=== PATIENT | male | born 1970 | race African-American/Black ===

== ENCOUNTER 2016-10-24 14:28 | Inpatient (IN) | payer SELFPAY ==
--- NOTE | 2016-10-24 14:47 | ER Document Report ---
Addendum entered and electronically signed by TAWNY GARVEY NP 14:57: Doctor's Note Notes: 10/24/16 14:[address] Diego with his symptoms and his vital signs. He recommended CT abdomen pelvis no IV or oral contrast this was ordered. Original Note: ED Medical Screen (RME) - General Stated Complaint: STOMACH PAIN Time seen by provider: 14:44 Mode of Arrival: Wheelchair Information source: Patient Notes: 46-year-old male presents to ED for abdominal pain left and right straight across the middle of his abdomen for the last 2 days. He has had diarrhea since yesterday and was up and down to the stool all night. With some nausea no vomiting. Ate yesterday but today has not wanted to eat no appetite. States he is a smoker history of hypertension he is on medication but did not take it today. States he has some renal disease. I have greeted and performed a rapid initial assessment of this patient. A comprehensive ED assessment and evaluation of the patient, analysis of test results and completion of medical decision making process will be conducted by an additional ED providers. TRAVEL OUTSIDE OF THE [place] IN LAST 30 DAYS: No - Related Data Allergies/Adverse Reactions: bees Allergy (Uncoded 02/18/16 15:56) Past Medical History - Social History Family history: Reviewed & Not Pertinent - Past Medical History Cardiac Medical History: Reports: Hx Congestive Heart Failure, Hx Hypertension Endocrine Medical History: Denies: Hx Diabetes Mellitus Type 1, Hx Diabetes Mellitus Type 2 - Immunizations Hx Diphtheria, Pertussis, Tetanus Vaccination: Yes
[2016-10-24] MEDS ORDERED: NORMAL SALINE 1000 ML 1,000 ML IV ONE ×2 (15:20→16:10)
[2016-10-24 15:21] LABS: ABSOLUTE BASOPHILS # (AUTO) 0.1 10^3/uL (0.0-0.2); ABSOLUTE EOSINOPHILS # (AUTO) 0.1 10^3/uL (0.0-0.6); ABSOLUTE MONOCYTES (AUTO) 0.7 10^3/uL (0.1-1.4); ABSOLUTE NEUT (AUTO) 9.2 10^3/uL (1.7-8.2); BASOPHILS % (AUTO) 0.5 % (0-2); EOSINOPHILS % (AUTO) 0.6 % (0-6); HEMOGLOBIN 15.9 g/dL (13.5-17.0); HGB HCT DIFFERENCE -3.3; LYMPHOCYTES % (AUTO) 9.3 % (13-45); MEAN CORPUSCULAR HEMOGLOBIN 28.4 pg (27.0-33.4); MEAN CORPUSCULAR HGB CONC 31.2 g/dL (32.0-36.0); MEAN CORPUSCULAR VOLUME 91 fl (80-97); MONOCYTES % (AUTO) 6.4 % (3-13); RED BLOOD COUNT 5.61 10^6/uL (4.35-5.55); RED CELL DISTRIBUTION WIDTH 13.5 % (11.5-14.0); SEGMENTED NEUTROPHILS % (AUTO) 83.2 % (42-78); WHITE BLOOD COUNT 11.1 10^3/uL (4.0-10.5)
[2016-10-24] MEDS ORDERED: FAMOTIDINE INJ/PF 20 MG/2 ML SDV IV ONE (15:21)
[2016-10-24] MEDS ORDERED: ONDANSETRON HCL INJ/PF 4 MG/2 ML SDV IV ONE (15:21)
[2016-10-24 15:42] LABS: ALANINE AMINOTRANSFERASE 35 U/L (21-72); ALBUMIN 4.3 g/dL (3.5-5.0); ALKALINE PHOSPHATASE 60 U/L (38-126); ANION GAP 13 (5-19); ASPARTATE AMINO TRANSFERASE 30 U/L (17-59); BILIRUBIN,TOTAL 0.7 mg/dL (0.2-1.3); BLOOD UREA NITROGEN 16 mg/dL (7-20); CALCIUM 10.2 mg/dL (8.4-10.2); CARBON DIOXIDE 28 mmol/L (22-30); CHLORIDE 102 mmol/L (98-107); CREATININE RESULT 1.62 mg/dL (0.52-1.25); GLUCOSE 125 mg/dL (75-110); LIPASE 40.9 U/L (23-300); POTASSIUM 4.6 mmol/L (3.6-5.0); SODIUM 143.3 mmol/L (137-145); TOTAL PROTEIN 7.6 g/dL (6.3-8.2)
[2016-10-24] MEDS ORDERED: LORAZEPAM INJ 2 MG/1 ML VIAL IV ONE (16:52)
[2016-10-24 17:25] LABS: APPEARANCE,URINE CLEAR; BILIRUBIN,URINE NEGATIVE (NEGATIVE); GLUCOSE, URINE NEGATIVE (NEGATIVE); KETONES,URINE TRACE mg/dL (NEGATIVE); LEUKOCYTE ESTERASE,URINE NEGATIVE (NEGATIVE); NITRITE,URINE NEGATIVE (NEGATIVE); PROTEIN,URINE NEGATIVE (NEGATIVE); UROBILINOGEN,URINE NEGATIVE mg/dL (<2.0)
[2016-10-24 17:40] LABS: URINE BARBITURATES SCREEN NEGATIVE; URINE METHADONE SCREEN NEGATIVE; URINE PHENCYCLIDINE SCREEN NEGATIVE
[2016-10-24] MEDS ORDERED: HYDRALAZINE HCL INJ/PF 20 MG/1 ML SDV ONE (18:27)
[2016-10-24] MEDS: DEXTROSE 5%-LACTATED RINGERS 1,000 ML IV PRN (19:32)
[2016-10-24] MEDS: HYDROMORPHONE HCL INJ/PF 2 MG/ML AMPULE IV PRN ×2 (19:32→22:42)
--- NOTE | 2016-10-24 19:38 | HISTORY AND PHYSICAL E ---
History and Physical NAME: ANTHONY AMBRIZ : 1970 AGE: 46Y ADMITTED: 10/24/2016 ROOM: REASON FOR ADMISSION: Abdominal pain. HISTORY OF PRESENT ILLNESS: This 46-year-old male with history of cocaine abuse who just recently presented to the hospital with a 24-hour history of diffuse abdominal pain with diarrhea. There is no history of any nausea, vomiting, fever, or chills or previous episodes. The patient presented to the ER complaining of pain, a 10 out of 10 which is located primarily in the right side of the abdomen. The patient was in moderate distress, and on arrival his blood pressure was elevated at 234/123 with a heart rate of 90, respirations 23, temperature 98.6. On examination, the patient was noted to have diffuse tenderness but particularly on the right side of the abdomen with some guarding and tenderness without rebound. The patient's bowel sounds were present. The patient underwent a CT scan of the abdomen which revealed moderate amount of ascites with thick-walled loops of small bowel seen in the right lower quadrant raising the possibility of inflammatory bowel disease versus infectious enteritis versus ischemic bowel or additional considerations. Because of these findings, the patient is admitted to my service. PAST MEDICAL HISTORY: The patient has history of: 1. Congestive heart failure. 2. Hypertension. HOME MEDICATIONS: Include: 1. Cozaar. 2. Hydralazine. 3. Lasix. 4. Coreg. 5. Lipitor. 6. Ecotrin. 7. Norvasc. ALLERGIES: None. PAST SURGICAL HISTORY: None. REVIEW OF SYSTEMS: HEENT: The patient has no symptoms referable to the ear, nose and throat. RESPIRATORY: The patient has no symptoms referable to the respiratory system. CARDIOVASCULAR: History of congestive heart failure, shortness of breath, and palpitations. GASTROINTESTINAL: As in history of present illness. GENITOURINARY: The patient denies any symptoms. MUSCULOSKELETAL: The patient denies any symptoms. INTEGUMENTARY: The patient denies any symptoms. LYMPHATIC: The patient denies any symptoms. ENDOCRINE: The patient denies any symptoms. PSYCHIATRIC: The patient denies any symptoms. SOCIAL HISTORY: The patient smokes a pack of cigarettes every other day. The patient is a cocaine abuser and last used cocaine yesterday evening and denies alcohol abuse. 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 PHYSICAL EXAMINATION: GENERAL: Reveals a 46-year-old male who is obese, normally developed, who is in mild to moderate distress. VITAL SIGNS: Noted and stable: Blood pressure 234/123, heart rate 90, respirations 23. HEENT: There is no conjunctival pallor or scleral icterus. Mucous membranes are moist and pink. NECK: Supple without nodes, masses, thyroid, JVD, or bruits. Trachea is midline. LUNGS: Chest wall shows good excursions. Lungs are clear anteriorly with good entry. CARDIOVASCULAR: Pulse is regular without murmurs or gallops. ABDOMEN: Obese, soft with diffuse tenderness with moderate tenderness in the right side of the abdomen with some guarding. No rebound. Bowel sounds are hypoactive. EXTREMITIES: The extremities have full range of motion without edema or tenderness. DIAGNOSTIC DATA: CT scan was reviewed as noted above. Chemistries: The patient's laboratory reveals a BUN of 16, creatinine elevated at 1.62, but otherwise electrolytes within normal limits; glucose is 125. The patient's CBC reveals a normal white count 11.1, hemoglobin and hematocrit are 15.5 and 51% indicating some degree of hemoconcentration. Urine cocaine screen is posterior. IMPRESSION: Abdominal pain rule out possible enteritis versus inflammatory bowel disease versus ischemia. PLAN: We will admit the patient to Surgery to follow his abdominal findings. Internal Medicine consult/Hospitalist consultation is being requested for management of his hypertension and CHF. DICTATING PHYSICIAN: KERI CABRERA M.D. [id number] PHY#: [id number] ID: [id number] JOB#: [id number] ACCT: [id number] cc:EKRI CABRERA M.D. >
--- NOTE | 2016-10-24 19:59 | ER Document Report ---
ED General - General Chief Complaint: Abdominal Pain Stated Complaint: STOMACH PAIN Mode of Arrival: Wheelchair TRAVEL OUTSIDE OF THE [place] IN LAST 30 DAYS: No - HPI Patient complains to provider of: nausea vomiting diarrhea abdominal pain Notes: Patient is very well known to this hospital patient abuses cocaine. Patient has history of CHF and hypertension patient coming in today for diffuse dominant pain nausea vomiting diarrhea. Patient states multiple bouts of diarrhea states more slight water no blood nausea vomiting and diffuse abdominal pain. Patient denies any abdominal surgeries. Patient states he did use cocaine night prior to arrival. Upon evaluation patient is hypertensive and tachycardic. - Related Data Allergies/Adverse Reactions: bees Allergy (Uncoded 10/24/16 14:46) Home Medications: Current Home Medications Bisoprolol Fumarate/Hctz [Bisoprolol-Hctz 10-6.25 mg Tab] 1 tab PO DAILY [History] Furosemide [Lasix 20 mg Tablet] 20 mg PO QAM 10/24/16 [History] Past Medical History - General Information source: Patient - Social History Smoking Status: Current Every Day Smoker Chew tobacco use (# tins/day): No Frequency of alcohol use: None Drug Abuse: None Family History: Reviewed & Not Pertinent, Hypertension. denies: CAD Patient has suicidal ideation: No Patient has homicidal ideation: No - Past Medical History Cardiac Medical History: Reports: Hx Congestive Heart Failure, Hx Hypertension Endocrine Medical History: Denies: Hx Diabetes Mellitus Type 1, Hx Diabetes Mellitus Type 2 Renal/ Medical History: Denies: Hx Peritoneal Dialysis - Immunizations Hx Diphtheria, Pertussis, Tetanus Vaccination: Yes Review of Systems - Review of Systems Constitutional: No symptoms reported EENT: No symptoms reported Cardiovascular: No symptoms reported Respiratory: No symptoms reported Gastrointestinal: Abdominal pain, Diarrhea, Nausea, Vomiting Genitourinary: No symptoms reported Male Genitourinary: No symptoms reported Musculoskeletal: No symptoms reported Skin: No symptoms reported Hematologic/Lymphatic: No symptoms reported Neurological/Psychological: No symptoms reported -: Yes All other systems reviewed and negative Physical Exam - Vital signs Vitals: Temp Pulse Resp BP Pulse Ox 98.1 F 103 H 20 185/113 H 96 10/24/16 14:48 10/24/16 14:48 10/24/16 14:48 10/24/16 14:48 10/24/16 14:48 Interpretation: Normal - General General appearance: Appears well, Alert - HEENT Head: Normocephalic, Atraumatic Eyes: Normal Pupils: PERRL - Respiratory Respiratory status: No respiratory distress Chest status: Nontender Breath sounds: Normal Chest palpation: Normal - Cardiovascular Rhythm: Regular Heart sounds: Normal auscultation Murmur: No - Abdominal Inspection: Normal Distension: Distended Bowel sounds: Normal Tenderness: Tender - Diffuse, Guarding. No: Rebound Organomegaly: No organomegaly - Back Back: Normal, Nontender - Extremities General upper extremity: Normal inspection, Nontender, Normal color, Normal ROM , Normal temperature General lower extremity: Normal inspection, Nontender, Normal color, Normal ROM , Normal temperature, Normal weight bearing. No: Sera's sign - Neurological Neuro grossly intact: Yes Cognition: Normal Orientation: AAOx4 [place] Coma Scale Eye Opening: Spontaneous [place] Coma Scale Verbal: Oriented [place] Coma Scale Motor: Obeys Commands [place] Coma Scale Total: 15 Speech: Normal Motor strength normal: LUE, RUE, LLE, RLE Sensory: Normal - Psychological Associated symptoms: Normal affect, Normal mood - Skin Skin Temperature: Warm Skin Moisture: Dry Skin Color: Normal Course - Re-evaluation Re-evalutation: 10/24/16 22:35 CT scan showed multiple dilated loops of bowel consistent with possible inflammatory bowel infectious colitis or ischemic bowel. Lactic acid and CBC shows no elevation. More likely possibly viral gastroenteritis however patient still remains very diffusely tender therefore surgery was counseled at states that they will that the patient for observation. - Vital Signs Vital signs: Temp Pulse Resp BP Pulse Ox 98.6 F 105 H 17 195/96 H 98 10/24/16 21:40 10/24/16 21:40 10/24/16 21:40 10/24/16 21:40 10/24/16 21:40 - Laboratory Result Diagrams: 10/24/16 14:55 10/24/16 14:55 Laboratory results interpreted by me: 10/24/16 10/24/16 10/24/16 14:55 14:55 16:55 WBC 11.1 H RBC 5.61 H MCHC 31.2 L Seg Neutrophils % 83.2 H Lymphocytes % 9.3 L Absolute Neutrophils 9.2 H Creatinine 1.62 H Est GFR ( Amer) 56 L Est GFR (Non-Af Amer) 46 L Glucose 125 H Urine Ketones TRACE H Discharge - Discharge Clinical Impression: Cocaine abuse Abdominal pain Qualifiers: Abdominal location: generalized Qualified Code(s): R10.84 - Generalized abdominal pain Disposition: ADMITTED OBSERVATION Admitting Provider: Surgicalist Julisa obyer Unit Admitted: Surgical Floor
[2016-10-24] MEDS ORDERED: HYDROCORTISONE SOD SUCCINATE INJ/PF 100 MG/2 ML SDV IV SCH (22:00)
[2016-10-24] MEDS: FAMOTIDINE INJ/PF 20 MG/2 ML SDV IV SCH (22:42)
[2016-10-25] MEDS: HYDRALAZINE HCL INJ/PF 20 MG/1 ML SDV IV PRN ×2 (00:34→06:46)
[2016-10-25] MEDS: HYDROMORPHONE HCL INJ/PF 2 MG/ML AMPULE IV PRN ×4 (03:54→22:22)
[2016-10-25] MEDS: FAMOTIDINE INJ/PF 20 MG/2 ML SDV IV SCH ×2 (10:08→22:10)
[2016-10-25] MEDS: ENOXAPARIN SODIUM INJ 40 MG/0.4 ML DISP.SYRIN SUBCUT SCH (10:09)
[2016-10-25] MEDS: DEXTROSE 5%-LACTATED RINGERS 1,000 ML IV PRN ×2 (10:11→18:16)
--- NOTE | 2016-10-25 10:58 | EKG REPORT ---
SEVERITY:- ABNORMAL ECG - SINUS RHYTHM BIATRIAL ABNORMALITIES PROBABLE LVH WITH SECONDARY REPOL ABNRM BORDERLINE PROLONGED QT INTERVAL : Confirmed by: Angel Moura MD 25-Oct-2016 10:58:06
--- NOTE | 2016-10-25 13:29 | Brief Operative Note ---
BRIEF OPERATIVE REPORT DATE OF SURGERY: 10/25/16 TIME OF SURGERY: 12:00 PREOPERATIVE DIAGNOSIS: Cholelithisis with biliary colic POSTOPERATIVE DIAGNOSIS: Same with Chronic Cholecysttits SURGEON: KERI CABRERA 1ST BODY TRIMMER: Jill Spence FINDINGS: Cholelithiasis, Chronic Cholecystitis COMPLICATIONS: None ESTIMATED BLOOD LOSS: 10cc TISSUE REMOVED OR ALTERED: Gall Bladder and contents TECHNICAL PROCEDURE: See Operative report
[2016-10-25] MEDS ORDERED: METOPROLOL TARTRATE 50 MG TABLET PO ONE (15:56)
[2016-10-25] MEDS ORDERED: ENALAPRILAT DIHYDRATE INJ/PF 2.5 MG/2 ML SDV IV PRN (15:57)
--- NOTE | 2016-10-25 16:47 | PDOC CONSULTATION ---
Consultation Consult Date: 10/25/16 Attending physician:: KERI CABRERA Consult reason:: Assistance with management of hypertension and chronic systolic CHF History of Present Illness Admission Date/PCP: 10/24/16 18:30 [facility] Patient complains of: Nausea, vomiting, diarrhea and abdominal pain History of Present Illness: ANTHONY AMBRIZ is a 46 year old male who presented to [facility] with complaint of nausea, vomiting, diarrhea and right sided abdominal pain on 10/24/2016. He underwent a full workup that showed multiple dilated loops of bowel consistent with inflammatory bowel infectious colitis or ischemic colitis. His symptoms began over the 24 hrs prior to his arrival here and were worsening. He was admitted to the Surgialist service. He is well known to our service from previous admissions. He has a history of cocaine abuse, tobacco abuse, essential hypertension and mild chronic systolic congestive heart failure with an EF of 55%, moderate tricuspid regurgitation and LVH by last echo in 04/2017. He has been NPO since admission until an hour ago, when he was started on a clear liquid diet. He has not had any blood pressure medications since admission. The patient denies any nausea, vomiting, or diarrhea. He continues to have some moderated right upper quadrant abdominal tenderness. Past Medical History Cardiac Medical History: Reports: Congestive Heart Failure, Hypertension Pulmonary Medical History: Reports: None EENT Medical History: Reports: None Neurological Medical History: Reports: None Endocrine Medical History: Reports: None Denies: Diabetes Mellitus Type 1, Diabetes Mellitus Type 2 Renal/ Medical History: Reports: None Malignancy Medical History: Reports: None GI Medical History: Reports: None Musculoskeltal Medical History: Reports: None Skin Medical History: Reports: None Psychiatric Medical History: Reports: Depression, Substance Abuse, Tobacco Dependency Traumatic Medical History: Reports: None Hematology: Reports: None Infectious Medical History: Reports: None Past Surgical History Past Surgical History: Reports: None Social History Information Source: Patient Lives with: Spouse/Significant other Smoking Status: Current Every Day Smoker Cigarettes Packs Per Day: 1 Cigars Per Day: 0 Number of Years Smokin Last Time Smoked: Prior to admission Frequency of Alcohol Use: Social Hx Recreational Drug Use: Yes Drugs: Cocaine, Marijuana Hx Prescription Drug Abuse: No - Advance Directive Resuscitation Status: Full Code Surrogate healthcare decision maker:: He states it would be his mother Family History Family History: Hypertension. denies: CAD Parental Family History Reviewed: Yes Children Family History Reviewed: Yes Sibling(s) Family History Reviewed.: Yes Medication/Allergy Home Medications: Bisoprolol Fumarate/Hctz [Bisoprolol-Hctz 10-6.25 mg Tab] 1 tab PO DAILY Furosemide [Lasix 20 mg Tablet] 20 mg PO QAM 10/24/16 Allergies/Adverse Reactions: bees Allergy (Uncoded 10/24/16 14:46) Review of Systems Constitutional: ABSENT: chills, fever(s), headache(s), weight gain, weight loss Eyes: ABSENT: visual disturbances Ears: PRESENT: as per HPI Cardiovascular: ABSENT: chest pain, dyspnea on exertion, edema, orthropnea, palpitations Gastrointestinal: PRESENT: abdominal pain, diarrhea, nausea, vomiting. ABSENT: constipation, hematemesis, hematochezia Genitourinary: ABSENT: dysuria, hematuria Musculoskeletal: ABSENT: joint swelling Integumentary: ABSENT: rash, wounds Neurological: ABSENT: abnormal gait, abnormal speech, confusion, dizziness, focal weakness, syncope Psychiatric: ABSENT: anxiety, depression, homidical ideation, suicidal ideation Endocrine: ABSENT: cold intolerance, heat intolerance, polydipsia, polyuria Hematologic/Lymphatic: PRESENT: as per HPI Physical Exam Vital Signs: Temp Pulse Resp BP Pulse Ox 98.3 F 88 20 174/92 H 97 10/25/16 12:00 10/25/16 14:00 10/25/16 12:00 10/25/16 12:00 10/25/16 12:00 Intake & Output 10/24/16 10/25/16 10/26/16 06:59 06:59 06:59 Intake Total 486 Output Total 0 Balance 486 Weight 112.8 kg General appearance: PRESENT: no acute distress, obese, well-developed, well- nourished Head exam: PRESENT: atraumatic, normocephalic Eye exam: PRESENT: conjunctiva pink, EOMI, PERRLA. ABSENT: scleral icterus Ear exam: PRESENT: normal external ear exam Mouth exam: PRESENT: moist, tongue midline Neck exam: ABSENT: carotid bruit, JVD, lymphadenopathy, thyromegaly Respiratory exam: PRESENT: clear to auscultation sandra. ABSENT: rales, rhonchi, wheezes Cardiovascular exam: PRESENT: RRR. ABSENT: diastolic murmur, rubs, systolic murmur Pulses: PRESENT: normal dorsalis pedis pul GI/Abdominal exam: PRESENT: distended, normal bowel sounds, soft, tenderness - right lower quandrant, negative peroneal signs. ABSENT: guarding, mass, organolmegaly, rebound Rectal exam: PRESENT: deferred Extremities exam: PRESENT: full ROM. ABSENT: calf tenderness, clubbing, pedal edema Musculoskeletal exam: PRESENT: ambulatory Neurological exam: PRESENT: alert, awake, oriented to person, oriented to place , oriented to time, oriented to situation, CN II-XII grossly intact. ABSENT: motor sensory deficit Psychiatric exam: PRESENT: appropriate affect, normal mood. ABSENT: homicidal ideation, suicidal ideation Skin exam: PRESENT: dry, intact, warm. ABSENT: cyanosis, rash Results Impressions: Chest X-Ray 10/24/16 14:49 IMPRESSION: Nothing acute. Borderline heart size again seen. Abdomen/Pelvis CT 10/24/16 14:56 IMPRESSION: Moderate amount of ascites with thick walled loops of small bowel in the right lower quadrant. Differential includes inflammatory bowel disease, infectious enteritis and ischemic bowel. Assessment & Plan - Diagnosis (1) Abdominal pain Qualifiers: Abdominal location: right lower quadrant Qualified Code(s): R10.31 - Right lower quadrant pain Is this a current diagnosis for this admission?: YesPlan: Management per surgery (2) Accelerated hypertension Is this a current diagnosis for this admission?: YesPlan: Patient was given metoprolol 50 mg po now. PRN Vasotec. He has been noncompliant with medical management in the past because of lack of insurance. He states he is not taking the medications on his medication reconciliation list (3) Chronic congestive heart failure with left ventricular diastolic dysfunction Is this a current diagnosis for this admission?: YesPlan: Patient appears presently euvolemic. Will continue to monitor. Last echo in 2015 showed almost normal EF of 55%, no diastolic dysfunction, moderate tricuspid regurgitation and LVH. He admits noncompliance to his medications and dietary restrictions, as well as occassional use of cocaine. (4) Cocaine abuse Is this a current diagnosis for this admission?: YesPlan: Counseled (5) Tobacco abuse Is this a current diagnosis for this admission?: YesPlan: Patient was counseled - Time Time Spent: 50 to 70 Minutes Critical Time spent with patient: 25-34 minutes Medications reviewed and adjusted accordingly: Yes Anticipated discharge: Home
--- NOTE | 2016-10-25 21:58 | PROGRESS NOTE E ---
Progress Note NAME: ANTHONY AMBRIZ : 1970 AGE: 46Y DATE: 10/25/2016 ROOM: 425 SUBJECTIVE: The patient is feeling better, has less abdominal cramping. He has had 2 diarrhea. OBJECTIVE: VITAL SIGNS: Blood pressure 150/94, temperature 98.3, pulse 62, respirations 20, saturation is 97% on room air. ABDOMEN: The patient's abdomen is soft, minimally tender in the right lower quadrant with good bowel sounds. There is no guarding or rebound. His bowel function is improving with less diarrhea. ASSESSMENT: Resolving gastroenteritis. PLAN: We will advance the patient's diet to regular in the morning and we will anticipate discharge planning at that time. DICTATING PHYSICIAN: KERI CABRERA M.D. [id number] PHY#: [id number] ID: [id number] JOB#: [id number] ACCT: [id number] cc: >
[2016-10-25] MEDS: METOPROLOL TARTRATE 25 MG TABLET PO SCH (22:10)
[2016-10-26] MEDS: HYDROMORPHONE HCL INJ/PF 2 MG/ML AMPULE IV PRN ×2 (02:49→10:43)
[2016-10-26] MEDS: DEXTROSE 5%-LACTATED RINGERS 1,000 ML IV PRN ×2 (02:57→12:19)
[2016-10-26] MEDS ORDERED: LORAZEPAM INJ 2 MG/1 ML VIAL ONE (04:16)
[2016-10-26] MEDS: HYDRALAZINE HCL INJ/PF 20 MG/1 ML SDV IV PRN (06:53)
[2016-10-26] MEDS: ENOXAPARIN SODIUM INJ 40 MG/0.4 ML DISP.SYRIN SUBCUT SCH (08:00)
[2016-10-26] MEDS: METOPROLOL TARTRATE 25 MG TABLET PO SCH (09:05)
[2016-10-26] MEDS: FAMOTIDINE INJ/PF 20 MG/2 ML SDV IV SCH (09:05)
[2016-10-26] MEDS ORDERED: LISINOPRIL 10 MG TABLET PO SCH (10:00)
--- NOTE | 2016-10-26 11:36 | PDOC PROGRESS REPORT ---
Subjective Progress Note for:: 10/26/16 Subjective:: Patient seen on morning rounds. He is resting comfortably in bed with his girlfriend. He denies any nausea or abdominal pain overnight. He states he did have 2 episodes of diarrhea. He is tolerating clear liquid diet without abdominal pain, and is hungry. His blood pressure is improved overnight but still hypertensive. He denies any chest pain, palpitations or shortness of breath. He denies any other complaints. Physical Exam Vital Signs: Temp Pulse Resp BP Pulse Ox 97.9 F 75 18 148/80 H 98 10/26/16 07:40 10/26/16 07:40 10/26/16 07:40 10/26/16 07:40 10/26/16 07:40 Intake & Output 10/25/16 10/26/16 10/27/16 06:59 06:59 06:59 Intake Total 486 4523 Output Total 0 5 Balance 486 4518 Weight 112.8 kg 112.8 kg General appearance: PRESENT: no acute distress, obese, well-developed, well- nourished Head exam: PRESENT: atraumatic, normocephalic Eye exam: PRESENT: conjunctiva pink, EOMI, PERRLA. ABSENT: scleral icterus Ear exam: PRESENT: normal external ear exam Mouth exam: PRESENT: moist, tongue midline Neck exam: ABSENT: carotid bruit, JVD, lymphadenopathy, thyromegaly Respiratory exam: PRESENT: clear to auscultation sandra. ABSENT: rales, rhonchi, wheezes Cardiovascular exam: PRESENT: RRR. ABSENT: diastolic murmur, rubs, systolic murmur Pulses: PRESENT: normal dorsalis pedis pul Vascular exam: PRESENT: normal capillary refill GI/Abdominal exam: PRESENT: hyperactive bowel sounds, soft Rectal exam: PRESENT: deferred Extremities exam: PRESENT: full ROM. ABSENT: calf tenderness, clubbing, pedal edema Neurological exam: PRESENT: alert, awake, oriented to person, oriented to place , oriented to time, oriented to situation, CN II-XII grossly intact. ABSENT: motor sensory deficit Psychiatric exam: PRESENT: appropriate affect, normal mood. ABSENT: homicidal ideation, suicidal ideation Skin exam: PRESENT: dry, intact, warm. ABSENT: cyanosis, rash Results Laboratory Results: 10/25/16 04:00 Nasophary (Mrsa Only) MRSA Surveillance Culture - Final NO MRSA RECOVERED Impressions: Chest X-Ray 10/24/16 14:49 IMPRESSION: Nothing acute. Borderline heart size again seen. Abdomen/Pelvis CT 10/24/16 14:56 IMPRESSION: Moderate amount of ascites with thick walled loops of small bowel in the right lower quadrant. Differential includes inflammatory bowel disease, infectious enteritis and ischemic bowel. Assessment & Plan - Diagnosis (1) Abdominal pain Qualifiers: Abdominal location: right lower quadrant Qualified Code(s): R10.31 - Right lower quadrant pain Is this a current diagnosis for this admission?: YesPlan: Management per surgery (2) Accelerated hypertension Is this a current diagnosis for this admission?: YesPlan: Patient was given metoprolol 50 mg po now. PRN Vasotec. He has been noncompliant with medical management in the past because of lack of insurance. He states he is not taking the medications on his medication reconciliation list (3) Chronic congestive heart failure with left ventricular diastolic dysfunction Is this a current diagnosis for this admission?: YesPlan: Patient appears presently euvolemic. Will continue to monitor. Last echo in 2015 showed almost normal EF of 55%, no diastolic dysfunction, moderate tricuspid regurgitation and LVH. He admits noncompliance to his medications and dietary restrictions, as well as occassional use of cocaine. (4) Cocaine abuse Is this a current diagnosis for this admission?: YesPlan: Counseled (5) Tobacco abuse Is this a current diagnosis for this admission?: YesPlan: Patient was counseled - Time Time Spent with patient: 25-34 minutes Medications reviewed and adjusted accordingly: Yes Anticipated discharge: Home
[2016-10-26 14:58] VITALS: BP 165/89
--- NOTE | 2016-10-26 20:13 | DISCHARGE SUMMARY E ---
Discharge Summary NAME: ANTHONY AMBRIZ : 1970 AGE: 46Y ADMITTED: 10/24/2016 DISCHARGED: 10/26/2016 DISCHARGE DIAGNOSIS: Resolved acute enteritis. HISTORY OF PRESENT ILLNESS: This 46-year-old male with history of hypertension, congestive heart failure, and cocaine abuse presented to the emergency room with abdominal pain. The patient was noted on CT scan to have thickening of the small bowel in the right lower quadrant suggestive of either enteritis versus ischemic changes versus inflammatory bowel disease. HOSPITAL COURSE: The patient was admitted to the hospital, and on examination initially he was noted to have some right lower quadrant tenderness with minimal guarding but no rebound. The patient had history of diarrhea as well. The patient was admitted to the hospital and kept NPO on IV fluids and was given antibiotics. The patient continued to improve in the hospital, and he was started on clear-liquid diet on the first hospital day and advanced to a regular diet on the second hospital day. PHYSICAL EXAMINATION: VITAL SIGNS: The patient now is afebrile, vital signs are stable. ABDOMEN: The abdomen is soft. Bowel sounds are present. There is minimal tenderness, and the patient complains of only some burning discomfort. DISCHARGE INSTRUCTIONS: The patient is now discharged home on liquid diet only if he has recurrent pain or diarrhea, but he has been advised to advance his diet as tolerated. DICTATING PHYSICIAN: KERI CABRERA M.D. [id number] PHY#: [id number] ID: [id number] JOB#: [id number] ACCT: [id number] cc:Paddy ALEJANDRO PA >
== END 2016-10-26 15:26 | disposition home or self-care (01) | DRG 392 ==
LOC: ER 14:28 → OBSVTOIN 18:30 → EH 18:30 → UNDOADMOB 20:12 → 4S 21:30
PROVIDERS: ADMIT Surgery; ATTEND Surgery
DX: K52.9 Noninfective gastroenteritis and colitis, unspecified (principal); I50.22 Chronic systolic (congestive) heart failure; I11.0 Hypertensive heart disease with heart failure; F32.9 Major depressive disorder, single episode, unspecified; F14.10 Cocaine abuse, uncomplicated; F17.210 Nicotine dependence, cigarettes, uncomplicated; Z91.030 Bee allergy status; Z79.899 Other long term (current) drug therapy; Z91.14 Patient's other noncompliance with medication regimen; Z82.49 Family history of ischemic heart disease and other diseases of the circulatory system
CPT/HCPCS: 36415; 71020; 74176; 80053; 80307; 81001; 83605; 83690; 85025; 93005; 93010; 96361; 96365; 96366; 96375; 99285; J0360; J1170; J1650; J2060; J2405; J3490; J7030; S0028

== ENCOUNTER 2017-03-30 15:36 | Emergency (ER) | payer SELFPAY ==
[2017-03-30 18:47] LABS: APPEARANCE,URINE CLEAR; BILIRUBIN,URINE NEGATIVE (NEGATIVE); GLUCOSE, URINE 50 mg/dL (NEGATIVE); KETONES,URINE NEGATIVE (NEGATIVE); LEUKOCYTE ESTERASE,URINE NEGATIVE (NEGATIVE); NITRITE,URINE NEGATIVE (NEGATIVE); PROTEIN,URINE NEGATIVE (NEGATIVE); UROBILINOGEN,URINE NEGATIVE mg/dL (<2.0)
[2017-03-30] MEDS ORDERED: CEFTRIAXONE INJ 250 MG VIAL IM ONE (18:56)
[2017-03-30] MEDS ORDERED: LIDOCAINE 1% INJ-PF (10 MG/ML) 30 ML SDV INJ ONE (18:56)
[2017-03-30] MEDS ORDERED: AZITHROMYCIN 1 GM SUSP PACKET PO ONE (18:56)
--- NOTE | 2017-03-30 19:01 | ER Document Report ---
HPI - HPI Patient complains to provider of: pyuria Onset: Other - 3 days Quality of pain: Burning Pain Level: 2 Context: has been sexually active with a partner without protection Exacerbated by: Denies Relieved by: Denies Similar symptoms previously: No Recently seen / treated by doctor: No - CARDIOVASCULAR Cardiovascular: DENIES: Chest pain - DERM Skin Color: Normal Past Medical History - Social History Smoking Status: Current Every Day Smoker Chew tobacco use (# tins/day): No Frequency of alcohol use: None Drug Abuse: None Family History: Hypertension. denies: CAD Patient has suicidal ideation: No Patient has homicidal ideation: No - Past Medical History Cardiac Medical History: Reports: Hx Congestive Heart Failure, Hx Hypertension Endocrine Medical History: Denies: Hx Diabetes Mellitus Type 1, Hx Diabetes Mellitus Type 2 Renal/ Medical History: Denies: Hx Peritoneal Dialysis Psychiatric Medical History: Reports: Hx Depression - Immunizations Hx Diphtheria, Pertussis, Tetanus Vaccination: Yes Vertical Provider Document - CONSTITUTIONAL Agree With Documented VS: Yes Exam Limitations: No Limitations General Appearance: WD/WN, No Apparent Distress - INFECTION CONTROL TRAVEL OUTSIDE OF THE [place] IN LAST 30 DAYS: No - RESPIRATORY O2 Sat by Pulse Oximetry: 98 - REPRODUCTIVE Male Genitalia: Normal Inspection Notes: Testicles nontender to palpation, equal in size without evidence of swelling. Inguinal hernia noted bilaterally. Cremasteric reflex intact bilaterally. No evidence of discharge or drainage from the glans. - MUSCULOSKELETAL/EXTREMETIES Musculoskeletal/Extremeties: MAEW, FROM, Non-Tender, No Edema - NEURO Level of Consciousness: Awake, Alert, Appropriate Motor/Sensory: No Motor Deficit, No Sensory Deficit - DERM Integumentary: Warm, Dry, No Rash Course - Re-evaluation Re-evalutation: 03/30/17 23:09 Patient is a 46-year-old male who is hemodynamically stable, no acute distress afebrile. Patient requesting treatment for coverage of chlamydia and gonorrhea. No evidence of trichomonas or urinary tract infection. Patient developed came back without any evidence of detection for Chlamydia gonorrhea. Patient is to follow-up with primary care. - Vital Signs Vital signs: Temp Pulse Resp BP Pulse Ox 98.0 F 79 20 207/105 H 98 03/30/17 16:01 03/30/17 16:01 03/30/17 16:01 03/30/17 16:01 03/30/17 16:01 - Laboratory Laboratory results interpreted by me: 03/30/17 18:11 Urine Glucose (UA) 50 H Urine Ascorbic Acid 40 H Discharge - Discharge Clinical Impression: Concern about STD in male without diagnosis Condition: Good Disposition: HOME, SELF-CARE Additional Instructions: At time of discharge there is no evidence of any STD, urinary tract infection. I will call you if your chlamydia/gonorrhea screen comes back positive. If you do not receive a call from me and it is negative. No news is good news. Please follow-up with the health department or your primary care physician as needed for any additional testing. Forms: Elevated Blood Pressure Referrals: [facility] [Provider Group] - Follow up as needed [facility] [NO LOCAL MD] - Follow up as needed
[2017-03-30 19:46] VITALS: BP 208/117
[2017-03-30 19:46] LABS: CHLAM PCR NOT DETECTED (NOT DETECT)
== END 2017-03-30 19:46 | disposition home or self-care (01) ==
LOC: ER 15:36
DX: Z20.2 Contact with and (suspected) exposure to infections with a predominantly sexual mode of transmission (principal); K40.20 Bilateral inguinal hernia, without obstruction or gangrene, not specified as recurrent; F17.200 Nicotine dependence, unspecified, uncomplicated
CPT/HCPCS: 99283; 96372; 36415; 87210; 86592; 81001; 87491; 87591; J3490; Q0144; J0696

== ENCOUNTER 2017-04-29 18:00 | Emergency (ER) | payer SELFPAY ==
[2017-04-29 18:15] VITALS: BP 213/109
[2017-04-29] MEDS ORDERED: CEFTRIAXONE INJ 1000 MG VIAL IM ONE (19:36)
[2017-04-29] MEDS ORDERED: LIDOCAINE 1% INJ-PF (10 MG/ML) 30 ML SDV INJ ONE (19:36)
[2017-04-29] MEDS ORDERED: AZITHROMYCIN 250 MG TABLET PO ONE (19:37)
--- NOTE | 2017-04-29 19:39 | ER Document Report ---
HPI - HPI Pain Level: 3 Notes: Patient is a 46-year-old male who presents the ED complaining of burning with urination 2 days. Patient states that he has been sexually active with a female partner, but states that he has been using protection generally. He is not sure if his female partner has any symptoms. Patient denies any urethral discharge or testicular pain. He has not noticed any bumps in his groin. He is still eating and drinking without any difficulties. Denies any headaches, fever, changes in vision, redness in eyes, URI, sore throat, chest pain, palpitations, syncope, cough, wheeze, shortness of breath, abdominal pain, nausea/vomiting/diarrhea, urinary retention, joint pains, or rash. Denies any drug allergies, medications. Patient states he does have a history of hypertension. He does not have a PCM at this time. - ROS Notes: REVIEW OF SYSTEMS: CONSTITUTIONAL : Denies fever, chills, or sweats. Denies recent illness. EENT: Denies eye, ear, throat, or mouth pain or symptoms. Denies nasal or sinus congestion or discharge. Denies throat, tongue, or mouth swelling or difficulty swallowing. CARDIOVASCULAR: Denies chest pain. Denies palpitations or racing or irregular heart beat. Denies ankle edema. RESPIRATORY: Denies cough, cold, or chest congestion. Denies shortness of breath, difficulty breathing, or wheezing. GASTROINTESTINAL: Denies abdominal pain or distention. Denies nausea, vomiting , or diarrhea. Denies blood in vomitus, stools, or per rectum. Denies black, tarry stools. Denies constipation. GENITOURINARY: see hpi MUSCULOSKELETAL: Denies back or neck pain or stiffness. Denies joint pain or swelling. SKIN: Denies rash, lesions or sores. NEUROLOGICAL: Denies confusion or altered mental status. Denies passing out or loss of consciousness. Denies dizziness or lightheadedness. Denies headache. Denies weakness or paralysis or loss of use of either side. Denies problems with gait or speech. Denies sensory loss, numbness, or tingling. ALL OTHER SYSTEMS REVIEWED AND NEGATIVE. Dictation was performed using [employer] voice recognition software - CARDIOVASCULAR Cardiovascular: DENIES: Chest pain - DERM Skin Color: Normal Past Medical History - Social History Smoking Status: Current Every Day Smoker Chew tobacco use (# tins/day): No Frequency of alcohol use: Occasional Drug Abuse: None Family History: Hypertension. denies: CAD - Past Medical History Cardiac Medical History: Reports: Hx Congestive Heart Failure, Hx Hypertension Endocrine Medical History: Denies: Hx Diabetes Mellitus Type 1, Hx Diabetes Mellitus Type 2 Renal/ Medical History: Denies: Hx Peritoneal Dialysis Psychiatric Medical History: Reports: Hx Depression Surgical Hx: Negative - Immunizations Hx Diphtheria, Pertussis, Tetanus Vaccination: Yes Vertical Provider Document - CONSTITUTIONAL Agree With Documented VS: Yes Notes: PHYSICAL EXAMINATION: GENERAL: Well-appearing, well-nourished and in no acute distress. HEAD: Atraumatic, normocephalic. EYES: Pupils equal round and reactive to light, extraocular movements intact, sclera anicteric, conjunctiva are normal. ENT: oropharynx clear without exudates. No tonsilar hypertrophy or erythema. NECK: Normal range of motion, supple without lymphadenopathy LUNGS: Breath sounds clear to auscultation bilaterally and equal. No wheezes rales or rhonchi. HEART: Regular rate and rhythm without murmurs, rubs, gallops. ABDOMEN: Soft, nontender, nondistended abdomen. No guarding, no rebound. No masses appreciated. Normal bowel sounds present. No CVA tenderness bilaterally. : + circumcised. No ulcerations, rash, lesions, discharge noted. No lymphadenopathy. No scrotal swelling. No testicular tenderness or epididymal tenderness. Musculoskeletal: FROM to passive/active. Strength 5+/5. Extremities: No cyanosis, clubbing, or edema b/l. Peripheral pulses 2+. Capillary refill less than 3 seconds. PSYCH: Normal mood, normal affect. SKIN: Warm, Dry, normal turgor, no rashes or lesions noted. - INFECTION CONTROL TRAVEL OUTSIDE OF THE [place] IN LAST 30 DAYS: No - RESPIRATORY O2 Sat by Pulse Oximetry: 98 Course - Re-evaluation Re-evalutation: 04/29/17 20:30 Patient is an afebrile, well-hydrated, 46-year-old male who presents the ED with dysuria. Vitals are stable. PE otherwise unremarkable. Patient's blood pressure is running as average. Stressed to the patient that he needs to get established with a PCM to get his blood pressure under control due to the risks of heart attack and stroke. Urinalysis was unremarkable. Chlamydia, gonorrhea urine is still pending and he will be notified if positive by hospital staff. Rocephin 250 mg given IM today along with 1 g of Zithromax. Safe sexual practices reviewed. Advised patient to go to the health department to get further STD testing. Recheck/establish with PCM this week. Return to the ED with any worsening/concerning symptoms otherwise as reviewed in discharge. Patient is in agreement. - Vital Signs Vital signs: Temp Pulse Resp BP Pulse Ox 98.1 F 83 24 H 213/109 H 98 04/29/17 18:12 04/29/17 18:12 04/29/17 18:12 04/29/17 18:12 04/29/17 18:12 Discharge - Discharge Clinical Impression: Dysuria Condition: Stable Disposition: HOME, SELF-CARE Additional Instructions: Push fluids (i.e. water, cranberry juice) Proper hygenic technique Keep the skin clean Safe sexual practices with condoms every time Tylenol/ibuprofen as needed May use over the counter AZO for burning with urination Check in with the health department this week for further testing* Your chlamydia/Da test are pending and you will be notified if positive results ; you may call in 2 days for the results as well You have been given follow up instructions including low cost follow up with one of the local primary care offices. Follow up with them tomorrow for further care and reevaluation. Return immediately if symptoms worsen F/u-establish with your PCM in 2-3 days for a recheck and elevated blood pressure Consider consult with a Urologist for ongoing/worsening symptoms. Return to the ED with any development of LANDA/fever, trouble with vision, eye redness, worsening pain, urethral discharge, urinary retention, blood in the urine, flank pain, abdominal pain, n/v, Chest Pain, shortness of breath, joint pains, or trouble breathing. Forms: Smoking Cessation Education, Elevated Blood Pressure [facility]AL [facility] - Follow up tomorrow [facility] [Provider Group] - Follow up as needed [facility] [Provider Group] - Follow up as needed [facility] [Provider Group] - Follow up as needed
[2017-04-29 20:21] LABS: APPEARANCE,URINE CLEAR; BILIRUBIN,URINE NEGATIVE (NEGATIVE); GLUCOSE, URINE 50 mg/dL (NEGATIVE); KETONES,URINE NEGATIVE (NEGATIVE); LEUKOCYTE ESTERASE,URINE NEGATIVE (NEGATIVE); NITRITE,URINE NEGATIVE (NEGATIVE); PROTEIN,URINE NEGATIVE (NEGATIVE); URINE SPECIFIC GRAVITY 1.028
[2017-04-29 21:53] LABS: CHLAM PCR NOT DETECTED (NOT DETECT)
== END 2017-04-29 21:00 | disposition home or self-care (01) ==
LOC: ER 18:00
DX: R30.0 Dysuria (principal); I10 Essential (primary) hypertension; F17.200 Nicotine dependence, unspecified, uncomplicated
CPT/HCPCS: 99283; 96372; 81001; 87491; 87591; J3490; J0696

== ENCOUNTER 2017-05-27 12:08 | Emergency (ER) | payer SELFPAY ==
[2017-05-27 12:22] VITALS: BP 209/117
--- NOTE | 2017-05-27 15:11 | ER Document Report ---
HPI - HPI Patient complains to provider of: std check Pain Level: Denies Context: 46-year-old male presents to ED for possible STD exposure. He is requesting treatment but does not better want to be treated for his blood pressure anything else. He states that he was treated about a couple weeks ago for STDs but his girlfriend came home and his girlfriend is having symptoms so he wants her tested and then him treated for what ever she gets treated for. They are having unprotected sex. Associated Symptoms: None Exacerbated by: Denies Relieved by: Denies Similar symptoms previously: Yes Recently seen / treated by doctor: Yes - ROS ROS below otherwise negative: Yes - CONSTITUTIONAL Constitutional: DENIES: Fever, Chills - EENT EENT: DENIES: Sore Throat, Ear Pain, Nasal Drainage-Clear, Nasal Drainage- Purulent, Congestion, Eye problems - NEURO Neurology: DENIES: Headache, Weakness, Vision blurred, Dizzinesss / Vertigo - CARDIOVASCULAR Cardiovascular: DENIES: Chest pain - RESPIRATORY Respiratory: DENIES: Trouble Breathing, Coughing - GASTROINTESTINAL Gastrointestinal: DENIES: Abdominal Pain, Nausea, Patient vomiting, Diarrhea, Constipation, Black / Bloody Stools - URINARY Urinary: DENIES: Dysuria, Urgency, Frequency - REPRODUCTIVE Reproductive: DENIES: :, Postmenopausal, Abnormal bleeding / discharge - MUSCULOSKELETAL Musculoskeletal: DENIES: Extremity pain, Back Pain, Neck Pain, Swelling - DERM Skin Color: Normal Skin Problems: None Past Medical History - General Information source: Patient - Social History Smoking Status: Current Every Day Smoker Cigarette use (# per day): Yes Chew tobacco use (# tins/day): No Smoking Education Provided: Yes - Less than 2 minutes Frequency of alcohol use: None Drug Abuse: None Occupation: Moving and storage Lives with: Spouse/Significant other Family History: DM, Hypertension, Malignancy Patient has suicidal ideation: No Patient has homicidal ideation: No - Past Medical History Cardiac Medical History: Reports: Hx Congestive Heart Failure, Hx Hypertension Pulmonary Medical History: Reports: None EENT Medical History: Reports: None Neurological Medical History: Reports: None Endocrine Medical History: Reports: None Renal/ Medical History: Reports: None Malignancy Medical History: Reports None GI Medical History: Reports: None Musculoskeltal Medical History: Reports None Skin Medical History: Reports None Psychiatric Medical History: Reports: Hx Depression Traumatic Medical History: Reports: None Infectious Medical History: Reports: None Surgical Hx: Negative Past Surgical History: Reports: None - Immunizations Hx Diphtheria, Pertussis, Tetanus Vaccination: Yes Vertical Provider Document - CONSTITUTIONAL Agree With Documented VS: Yes - Blood pressure elevated at 209/117 the patient refused any treatment states Exam Limitations: No Limitations - INFECTION CONTROL TRAVEL OUTSIDE OF THE [place] IN LAST 30 DAYS: No - HEENT HEENT: Atraumatic, Normocephalic, PERRLA - NECK Neck: Normal Inspection, Supple - RESPIRATORY Respiratory: Breath Sounds Normal, No Respiratory Distress O2 Sat by Pulse Oximetry: 98 - CARDIOVASCULAR Cardiovascular: Regular Rate, Regular Rhythm - GI/ABDOMEN Gastrointestinal: Abdomen Soft, Abdomen Non-Tender - MUSCULOSKELETAL/EXTREMETIES Musculoskeletal/Extremeties: MAEW, FROM, Non-Tender - NEURO Level of Consciousness: Awake, Alert, Appropriate - DERM Integumentary: Warm, Dry, No Rash Course - Re-evaluation Re-evalutation: 05/27/17 22:04 Patient states he was only here for STD treatment if his significant other was positive. He states he did not want any treatments for anything else. He states he has medications for anything else he needs at home and he can follow- up with his primary doctor. His significant other's STD test were negative. Patient was discharged home to follow-up with his primary doctor. - Vital Signs Vital signs: Temp Pulse Resp BP Pulse Ox 98.5 F 73 16 209/117 H 98 05/27/17 12:14 05/27/17 12:14 05/27/17 12:14 05/27/17 12:14 05/27/17 12:14 Discharge - Discharge Clinical Impression: Concern about STD in male without diagnosis Condition: Stable Disposition: HOME, SELF-CARE Additional Instructions: You did not want to be tested for STDs you just wanted to be treated if your girlfriend was positive. Your girlfriend's test were all negative and she will not be treated and nor will you. FOLLOW-UP CARE: If you have been referred to a physician for follow-up care, call the physician s office for an appointment as you were instructed or within the next two days. If you experience worsening or a significant change in your symptoms, notify the physician immediately or return to the Emergency Department at any time for re-evaluation.
== END 2017-05-27 15:10 | disposition home or self-care (01) ==
LOC: ER 12:08
DX: Z20.2 Contact with and (suspected) exposure to infections with a predominantly sexual mode of transmission (principal); I10 Essential (primary) hypertension; F17.210 Nicotine dependence, cigarettes, uncomplicated; Z71.6 Tobacco abuse counseling
CPT/HCPCS: 99283

== ENCOUNTER 2018-06-07 10:43 | Emergency (ER) | payer SELFPAY ==
--- NOTE | 2018-06-07 11:15 | ER Document Report ---
ED Medical Screen (RME) - General Chief Complaint: Penile Bleeding Stated Complaint: BLEEDING FROM PENIS Time Seen by Provider: 06/07/18 11:13 Mode of Arrival: Ambulatory Information source: Patient Notes: This is a 47-year-old man who presents to the emergency room with blood in the urine for the past 2 days. He also reports being sluggish. He denies any chest pain or shortness of breath. He is not a smoker. He has a remote history of drug use but has stopped entirely. He is allergic to bee stings and is currently on no medicines. He is noted to be hypertensive in triage. TRAVEL OUTSIDE OF THE [place] IN LAST 30 DAYS: No - Related Data Allergies/Adverse Reactions: No Known Drug Allergies Allergy (Verified 06/07/18 10:50) bees Allergy (Severe, Uncoded 06/07/18 10:50) Past Medical History - Social History Family history: Reviewed & Not Pertinent - Past Medical History Cardiac Medical History: Reports: Hx Congestive Heart Failure, Hx Hypertension Endocrine Medical History: Denies: Hx Diabetes Mellitus Type 1, Hx Diabetes Mellitus Type 2 Renal/ Medical History: Denies: Hx Peritoneal Dialysis Psychiatric Medical History: Reports: Hx Depression - Immunizations Hx Diphtheria, Pertussis, Tetanus Vaccination: Yes History of Influenza Vaccine for 07/2017 - 12/2017 Season: Unknown Physical Exam - Vital signs Vitals: Temp Pulse Resp BP Pulse Ox 98.0 F 70 16 214/114 H 99 06/07/18 10:49 06/07/18 10:49 06/07/18 10:49 06/07/18 10:49 06/07/18 10:49 Course - Vital Signs Vital signs: Temp Pulse Resp BP Pulse Ox 98.0 F 70 16 214/114 H 99 06/07/18 10:49 06/07/18 10:49 06/07/18 10:49 06/07/18 10:49 06/07/18 10:49
[2018-06-07 11:55] LABS: ABSOLUTE BASOPHILS # (AUTO) 0.1 10^3/uL (0.0-0.2); ABSOLUTE EOSINOPHILS # (AUTO) 0.1 10^3/uL (0.0-0.6); ABSOLUTE LYMPHOCYTES (AUTO) 1.4 10^3/uL (0.5-4.7); ABSOLUTE MONOCYTES (AUTO) 0.4 10^3/uL (0.1-1.4); BASOPHILS % (AUTO) 0.9 % (0-2); EOSINOPHILS % (AUTO) 1.8 % (0-6); HEMATOCRIT 43.3 % (37.9-51.0); HEMOGLOBIN 14.3 g/dL (13.5-17.0); MEAN CORPUSCULAR HEMOGLOBIN 28.3 pg (27.0-33.4); MEAN CORPUSCULAR VOLUME 86 fl (80-97); MONOCYTES % (AUTO) 7.2 % (3-13); PLATELET COUNT 294 10^3/uL (150-450); RED BLOOD COUNT 5.06 10^6/uL (4.35-5.55); SEGMENTED NEUTROPHILS % (AUTO) 66.1 % (42-78); TOTAL CELLS COUNTED % (AUTO) 100 %
[2018-06-07 11:59] LABS: APPEARANCE,URINE CLEAR; BILIRUBIN,URINE NEGATIVE (NEGATIVE); COLOR,URINE YELLOW; GLUCOSE, URINE NEGATIVE (NEGATIVE); KETONES,URINE NEGATIVE (NEGATIVE); LEUKOCYTE ESTERASE,URINE NEGATIVE (NEGATIVE); NITRITE,URINE NEGATIVE (NEGATIVE); PROTEIN,URINE NEGATIVE (NEGATIVE); URINE SPECIFIC GRAVITY 1.024; UROBILINOGEN,URINE NEGATIVE mg/dL (<2.0)
[2018-06-07 12:08] LABS: ALANINE AMINOTRANSFERASE 34 U/L (21-72); ALBUMIN 4.1 g/dL (3.5-5.0); ALKALINE PHOSPHATASE 55 U/L (38-126); ANION GAP 11 (5-19); ASPARTATE AMINO TRANSFERASE 32 U/L (17-59); BILIRUBIN,DIRECT 0.2 mg/dL (0.0-0.4); BILIRUBIN,TOTAL 0.6 mg/dL (0.2-1.3); BLOOD UREA NITROGEN 16 mg/dL (7-20); CALCIUM 8.9 mg/dL (8.4-10.2); CARBON DIOXIDE 27 mmol/L (22-30); CHLORIDE 107 mmol/L (98-107); GLUCOSE 101 mg/dL (75-110); POTASSIUM 4.1 mmol/L (3.6-5.0); SODIUM 144.6 mmol/L (137-145); TOTAL PROTEIN 7.8 g/dL (6.3-8.2)
[2018-06-07 12:52] LABS: INTERNATIONAL RATION (INR) 0.92; PROTHROMBIN TIME 12.9 SEC (11.4-15.4)
[2018-06-07] MEDS ORDERED: CLONIDINE HCL 0.1 MG TABLET PO ONE ×2 (13:44→15:00)
[2018-06-07] MEDS ORDERED: LISINOPRIL 10 MG TABLET PO ONE (13:44)
--- NOTE | 2018-06-07 13:49 | ER Document Report ---
ED GI/ - General Chief Complaint: Penile Bleeding Stated Complaint: BLEEDING FROM PENIS Time Seen by Provider: 06/07/18 11:13 Mode of Arrival: Ambulatory TRAVEL OUTSIDE OF THE [place] IN LAST 30 DAYS: No - HPI Patient complains to provider of: Other - 47-year-old man with hypertension that has been untreated who presents for evaluation of some bleeding from his urethra which she has noted had happened once or twice with occasional drips over the last 2 days with associated dysuria. He never had anything like this in the past, denies any change in sexual partners, denies any fevers or chills, denies any lightheadedness chest pain shortness of breath does endorse low- grade abdominal pain, has not had any bleeding problems takes no blood thinners. He has been off of his blood pressure medication for several months because of a change in insurance. Previously was taking lisinopril, has never had any surgeries is not allergic to anything. Onset: This evening - Related Data Allergies/Adverse Reactions: No Known Drug Allergies Allergy (Verified 06/07/18 10:50) bees Allergy (Severe, Uncoded 06/07/18 10:50) Past Medical History - General Information source: Patient - Social History Smoking Status: Never Smoker Chew tobacco use (# tins/day): No Frequency of alcohol use: None Drug Abuse: None Family History: DM, Hypertension, Malignancy Patient has suicidal ideation: No Patient has homicidal ideation: No - Past Medical History Cardiac Medical History: Reports: Hx Congestive Heart Failure, Hx Hypertension Endocrine Medical History: Denies: Hx Diabetes Mellitus Type 1, Hx Diabetes Mellitus Type 2 Renal/ Medical History: Denies: Hx Peritoneal Dialysis Psychiatric Medical History: Reports: Hx Depression - Immunizations Hx Diphtheria, Pertussis, Tetanus Vaccination: Yes Review of Systems - Review of Systems -: Yes All other systems reviewed and negative Physical Exam - Vital signs Vitals: Temp Pulse Resp BP Pulse Ox 98.0 F 70 16 214/114 H 99 06/07/18 10:49 06/07/18 10:49 06/07/18 10:49 06/07/18 10:49 06/07/18 10:49 - General General appearance: Appears well In distress: None - HEENT Head: Normocephalic Eyes: Normal Conjunctiva: Normal Cornea: Normal Extraocular movements intact: Yes Eyelashes: Normal Pupils: PERRL Ears: Normal Sinus: Normal Nasal: Normal Mouth/Lips: Normal - Respiratory Respiratory status: No respiratory distress Chest status: Nontender Breath sounds: Normal Chest palpation: Normal - Cardiovascular Rhythm: Regular Heart sounds: Normal auscultation Murmur: No - Abdominal Inspection: Normal Distension: No distension Tenderness: Nontender - Genitourinary Inspection: Normal Tenderness: Nontender Cremasteric reflex: Normal Scrotum: Normal - Back Back: Normal - Extremities General upper extremity: Normal inspection, Nontender, Normal strength, Normal temperature General lower extremity: Normal inspection, Nontender, Normal strength, Normal temperature - Neurological Neuro grossly intact: Yes Cognition: Normal Orientation: AAOx4 [place] Coma Scale Eye Opening: Spontaneous [place] Coma Scale Verbal: Oriented [place] Coma Scale Motor: Obeys Commands [place] Coma Scale Total: 15 Speech: Normal Cranial nerves: Normal Cerebellar coordination: Normal Motor strength normal: LUE, RUE, LLE, RLE - Psychological Associated symptoms: Normal affect Course - Re-evaluation Re-evalutation: 06/07/18 19:46 47-year-old man with dysuria and hematuria presents for evaluation of such. Examination the man is in no obvious distress, he is well-appearing. He is currently not taking any blood thinning medications and has been off of his antihypertensives for some time. He has got a benign physical examination. Labs drawn through triage were chemistry as well as a count and a urinalysis will add on coags for possible bleeding problem. Patient has relatively reassuring laboratory evaluation. Does not even have gross hematuria. Patient does have markedly elevated blood pressure on presentation emergency department, likely he has been hypertensive for some time, will treat with clonidine initially in emergency department as well as labetalol. Patient's blood pressure was down trending and improving. He will be given a prescription for clonidine to utilize daily while his lisinopril begins to take effect. Given that his creatinine is normal believe lisinopril is safe at this time did encourage him to follow-up with the primary physician to continue his medication dosing moving forward. We will also plan to presumptively treat for possible cystitis despite the reassuring urinalysis for this patient given his abnormal blood and urine. Does not have symptoms to suggest nephrolithiasis has no pulsatile abdominal mass. His abdomen is benign at this time. Gave strict return precautions related to any worsening of his underlying symptoms. - Vital Signs Vital signs: Temp Pulse Resp BP Pulse Ox 97.9 F 80 16 194/114 H 99 06/07/18 13:58 06/07/18 15:43 06/07/18 15:43 06/07/18 15:43 06/07/18 15:43 - Laboratory Result Diagrams: 06/07/18 11:37 06/07/18 11:37 Laboratory results interpreted by me: 06/07/18 11:37 Urine Ascorbic Acid 20 H Discharge - Discharge Clinical Impression: Hypertension Qualifiers: Hypertension type: unspecified Qualified Code(s): I10 - Essential (primary) hypertension Hematuria Qualifiers: Hematuria type: unspecified type Qualified Code(s): R31.9 - Hematuria, unspecified Condition: Good Disposition: HOME, SELF-CARE Instructions: Cephalexin ([facility]), High Blood Pressure ([facility]), High Blood Pressure , Requiring Treatment ([facility]) Additional Instructions: You were seen today in the emergency department for the bleeding in your penis. You had evaluation including a physical exam, blood tests and urine test. Use the antibiotic prescribed to you over the next several days to treat any possible infection. Use the clonidine prescribed to you for the next 3 days until you are able to start taking your normal blood pressure medicine, he is a lisinopril prescribed to you every day starting today, see a doctor within the next 2 weeks to take care of your blood pressure. Your blood pressure is markedly elevated and does put you at risk for having strokes and heart attacks in the future. If you continue to have bleeding from your penis please see a urologist or return to the emergency room. Prescriptions: Cephalexin Monohydrate [Keflex 500 mg Capsule] 500 mg PO Q6H 7 Days #28 capsule Clonidine HCl 0.1 mg PO TID #9 tablet Lisinopril 20 mg PO DAILY #30 tablet Forms: Elevated Blood Pressure
[2018-06-07] MEDS ORDERED: LABETALOL HCL 200 MG TABLET PO ONE (15:00)
[2018-06-07 15:44] VITALS: BP 194/114
== END 2018-06-07 16:02 | disposition home or self-care (01) ==
LOC: ER 10:43
DX: R31.9 Hematuria, unspecified (principal); R30.0 Dysuria; I10 Essential (primary) hypertension
CPT/HCPCS: 36415; 80053; 81001; 85025; 85610; 99283

== ENCOUNTER 2018-08-01 09:22 | Emergency (ER) | payer SELFPAY ==
[2018-08-01 09:28] VITALS: BP 211/118
[2018-08-01] MEDS ORDERED: LISINOPRIL 10 MG TABLET PO ONE (09:46)
--- NOTE | 2018-08-01 09:46 | ER Document Report ---
ED General - General Chief Complaint: Penile Problem Stated Complaint: BLOOD IN SEMEN Time Seen by Provider: 08/01/18 09:36 Notes: Patient is a 47-year-old male that presents to the emergency department for chief complaint of blood in the semen. Patient states he has been noticing with each time he ejaculates that there is blood in his semen, this is been going on for the last 10 days. He has had this happen in the past as well, and over a year ago. He states he only had pain with it one time. Denies noting any blood in the urine or dysuria. He denies having any pain at this time. Denies any associated fevers, chills, night sweats, nausea, vomiting, diarrhea, or pain with bowel movements. He also notes that he has high blood pressure, but has run out of pills, there are last prescribed in June from the emergency department, he did not follow-up after that. He denies any chest pain , shortness of breath, difficulty breathing or headaches. Past Medical History: Hypertension Past Surgical History: Hernia surgery Social History: Denies tobacco, alcohol or drug use. Family History: Reviewed and noncontributory for presenting illness Allergies: Reviewed, see documented allergy list. REVIEW OF SYSTEMS: Unless otherwise stated in this report the patient's positive and negative responses for review of systems for constitutional, eyes, ENT, cardiovascular, respiratory, gastrointestinal, neurological, genitourinary, musculoskeletal, and integumentary systems and related systems to the presenting problem are either as stated in the HPI or were not pertinent or were negative for the symptoms and/or complaints related to the presenting medical problem. PHYSICAL EXAMINATION: Vital signs reviewed, nursing noted reviewed. GENERAL: Well-appearing, well-nourished and in no acute distress. HEAD: Atraumatic, normocephalic. EYES: Eyes appear normal, extraocular movements intact, sclera anicteric, conjunctiva are normal. ENT: nares patent, oropharynx clear without exudates. Moist mucous membranes. NECK: Normal range of motion, supple without lymphadenopathy LUNGS: Breath sounds clear to auscultation bilaterally and equal. No wheezes rales or rhonchi. HEART: Regular rate and rhythm without murmurs ABDOMEN: Soft, nontender, normoactive bowel sounds. No rebound, guarding, or rigidity. No masses appreciated. EXTREMITIES: Mild tenderness over the left, common extensor tendon of the elbow , the rest the patient's extremity exam is grossly unremarkable. And nontender. , good range of motion, no pitting or edema. NEUROLOGICAL: No focal neurological deficits. Moves all extremities spontaneously Motor and sensory grossly intact on exam. PSYCH: Normal mood, normal affect. SKIN: Warm, Dry, normal turgor, no rashes or lesions noted on exposed skin TRAVEL OUTSIDE OF THE [place] IN LAST 30 DAYS: No - Related Data Allergies/Adverse Reactions: No Known Drug Allergies Allergy (Verified 08/01/18 09:26) bees Allergy (Severe, Uncoded 06/07/18 10:50) Past Medical History - Social History Smoking Status: Former Smoker Frequency of alcohol use: None Drug Abuse: None Family History: DM, Hypertension, Malignancy Patient has suicidal ideation: No Patient has homicidal ideation: No - Past Medical History Cardiac Medical History: Reports: Hx Congestive Heart Failure, Hx Hypertension Endocrine Medical History: Denies: Hx Diabetes Mellitus Type 1, Hx Diabetes Mellitus Type 2 Renal/ Medical History: Denies: Hx Peritoneal Dialysis Psychiatric Medical History: Reports: Hx Depression - Immunizations Hx Diphtheria, Pertussis, Tetanus Vaccination: Yes Physical Exam - Vital signs Vitals: Temp Pulse Resp BP Pulse Ox 97.9 F 71 18 211/118 H 94 08/01/18 09:26 08/01/18 09:26 08/01/18 09:26 08/01/18 09:26 08/01/18 09:26 Course - Re-evaluation Re-evalutation: Patient seen and examined vital signs reviewed. Laboratory data and imaging were ordered as appropriate for the patient's presenting symptoms and complaint, with consideration of any critical or life threatening conditions that may be associated with their obtained history and exam as noted above. Patient was treated with lisinopril 20 mg Results were reviewed when available and demonstrated unremarkable blood work, and urinalysis The patient was re-evaluated and was stable Evaluation was most consistent with uncontrolled hypertension, hematospermia, and left elbow tendinitis, discussed the patient, at length that his blood pressure needs to be better controlled, he is given a prescription for lisinopril 20 mg daily, and advised to follow-up with primary care physician, is given 2 referrals, after reviewing the patient's chart, it appears she has had hematospermia in the past, this may be related to prostatitis, given a prescription for ciprofloxacin, for 2 weeks, advised follow-up with urology, he is given 3 numbers to call to set up an appointment, also discussed with the patient possible treatments for his left elbow tendinitis, and again follow-up with a primary care Results were discussed with the patient at this point, after careful consideration I feel that that patient can be discharged from the emergency department, the patient was educated treatments and reasons to return to the emergency department based on their presumed diagnosis as noted above, they were advised to followup with a primary care physician in 2-3 days. Patient was agreeable to plan of care. *Note is created using voice recognition software and may contain spelling, syntax or grammatical errors. - Vital Signs Vital signs: Temp Pulse Resp BP Pulse Ox 97.9 F 71 18 211/118 H 94 08/01/18 09:26 08/01/18 09:26 08/01/18 09:26 08/01/18 09:26 08/01/18 09:26 - Laboratory Result Diagrams: 08/01/18 09:45 08/01/18 09:45 Laboratory results interpreted by me: 08/01/18 08/01/18 09:45 09:45 RDW 14.6 H Urine Ascorbic Acid 40 H Discharge - Discharge Clinical Impression: Hematospermia, Elbow pain, left Hypertension Qualifiers: Hypertension type: unspecified Qualified Code(s): I10 - Essential (primary) hypertension Condition: Stable Disposition: HOME, SELF-CARE Instructions: Hematuria ([facility]), High Blood Pressure, Requiring Treatment ([facility]) Additional Instructions: Please take the antibiotics as prescribed, you need to continue taking blood pressure medication, over time, high blood pressure can injure multiple organs including her heart, kidneys, liver, and brain, you need to follow-up with a primary care physician, the emergency department is not the proper place to have your blood pressure managed, you have been provided with 2 weeks of this medication, you may need additional medications however to properly manage her blood pressure, this needs to be done by her primary care physician. You can end up on dialysis, his blood pressure is not controlled. For the blood noted in your semen, this is most likely from inflammation of the prostate, and will prescribe medication with antibiotic, to see if it improves this. For this antibiotic you should not perform any heavy lifting as this can put you at risk for tendon injuries, you should also not take any milk or calcium containing medications such as tums or rolaids, as these can make the medication less effective. I have provided a list of urologiststo follow-up with as well as this seems to have been a problem in the past. Please call for an appointment. [email or web address] [place] [email or web address] [facility] Jim Mackey [place] [email or web address], [place] Lastly for your elbow pain, and might benefit you to use a tennis elbow brace, these can be picked up at any pharmacy. Prescriptions: Ciprofloxacin HCl [Cipro 500 mg Tablet] 500 mg PO BID #28 tablet Lisinopril [Zestril] 20 mg PO DAILY #15 tablet Referrals: [facility] [Provider Group] - 08/02/18 () [facility] [Provider Group] - 08/02/18
[2018-08-01 10:09] LABS: ABSOLUTE BASOPHILS # (AUTO) 0.1 10^3/uL (0.0-0.2); ABSOLUTE EOSINOPHILS # (AUTO) 0.1 10^3/uL (0.0-0.6); ABSOLUTE LYMPHOCYTES (AUTO) 1.4 10^3/uL (0.5-4.7); ABSOLUTE MONOCYTES (AUTO) 0.5 10^3/uL (0.1-1.4); ABSOLUTE NEUT (AUTO) 4.5 10^3/uL (1.7-8.2); BASOPHILS % (AUTO) 1.1 % (0-2); EOSINOPHILS % (AUTO) 1.6 % (0-6); HEMATOCRIT 43.4 % (37.9-51.0); HEMOGLOBIN 14.7 g/dL (13.5-17.0); LYMPHOCYTES % (AUTO) 20.8 % (13-45); MEAN CORPUSCULAR HGB CONC 33.8 g/dL (32.0-36.0); MEAN CORPUSCULAR VOLUME 86 fl (80-97); MONOCYTES % (AUTO) 8.1 % (3-13); PLATELET COUNT 271 10^3/uL (150-450); RED BLOOD COUNT 5.05 10^6/uL (4.35-5.55); RED CELL DISTRIBUTION WIDTH 14.6 % (11.5-14.0); SEGMENTED NEUTROPHILS % (AUTO) 68.4 % (42-78); TOTAL CELLS COUNTED % (AUTO) 100 %; WHITE BLOOD COUNT 6.5 10^3/uL (4.0-10.5)
[2018-08-01 10:23] LABS: ANION GAP 13 (5-19); BLOOD UREA NITROGEN 16 mg/dL (7-20); CALCIUM 9.3 mg/dL (8.4-10.2); CARBON DIOXIDE 27 mmol/L (22-30); CHLORIDE 103 mmol/L (98-107); GLUCOSE 109 mg/dL (75-110); POTASSIUM 4.2 mmol/L (3.6-5.0); SODIUM 143.2 mmol/L (137-145)
[2018-08-01 10:26] LABS: APPEARANCE,URINE CLEAR; BILIRUBIN,URINE NEGATIVE (NEGATIVE); COLOR,URINE YELLOW; GLUCOSE, URINE NEGATIVE (NEGATIVE); KETONES,URINE NEGATIVE (NEGATIVE); LEUKOCYTE ESTERASE,URINE NEGATIVE (NEGATIVE); NITRITE,URINE NEGATIVE (NEGATIVE); PROTEIN,URINE NEGATIVE (NEGATIVE); URINE SPECIFIC GRAVITY 1.019; UROBILINOGEN,URINE NEGATIVE mg/dL (<2.0)
[2018-08-01 11:38] LABS: CHLAM PCR NOT DETECTED (NOT DETECT); GON PCR NOT DETECTED (NOT DETECT)
== END 2018-08-01 11:05 | disposition home or self-care (01) ==
LOC: ER 09:22
DX: R36.1 Hematospermia (principal); I10 Essential (primary) hypertension; T50.906A Underdosing of unspecified drugs, medicaments and biological substances, initial encounter; Z91.128 Patient's intentional underdosing of medication regimen for other reason; Z91.14 Patient's other noncompliance with medication regimen; M25.522 Pain in left elbow; Z91.030 Bee allergy status; Z87.891 Personal history of nicotine dependence
CPT/HCPCS: 36415; 80048; 81001; 85025; 87086; 87491; 87591; 99283

== ENCOUNTER 2018-12-18 19:18 | Emergency (ER) | payer SELFPAY ==
[2018-12-18 19:26] VITALS: BP 217/116
[2018-12-18] MEDS ORDERED: BENZONATATE 100 MG CAPSULE PO ONE (19:39)
--- NOTE | 2018-12-18 19:44 | ER Document Report ---
ED General - General Chief Complaint: Productive Cough Stated Complaint: COUGH Time Seen by Provider: 12/18/18 19:32 Notes: 48-year-old male here with complaints of 1 week productive cough, fevers, chills, body aches. The cough is productive of yellow sputum initially however has turned into a dry cough. He is here because the symptoms persist even though he has used NyQuil Mucinex and DayQuil for the symptoms. No known sick contacts. Of note, he admits that he does not take his blood pressure medication "because I am not a medicine person". He admits that he has not taken it in many months. He denies any headache chest pain shortness of breath numbness tingling focal weakness. TRAVEL OUTSIDE OF THE [place] IN LAST 30 DAYS: No - Related Data Allergies/Adverse Reactions: No Known Drug Allergies Allergy (Verified 12/18/18 19:20) bees Allergy (Severe, Uncoded 12/18/18 19:20) Past Medical History - Social History Smoking Status: Unknown if Ever Smoked Family History: DM, Hypertension, Malignancy - Past Medical History Cardiac Medical History: Reports: Hx Congestive Heart Failure, Hx Hypertension Endocrine Medical History: Denies: Hx Diabetes Mellitus Type 1, Hx Diabetes Mellitus Type 2 Renal/ Medical History: Denies: Hx Peritoneal Dialysis Psychiatric Medical History: Reports: Hx Depression - Immunizations Hx Diphtheria, Pertussis, Tetanus Vaccination: Yes Review of Systems - Review of Systems Notes: See history of present illness for pertinent positive review of systems; otherwise all review of systems have been reviewed and are negative Physical Exam - Vital signs Vitals: Temp Pulse Resp BP Pulse Ox 98.4 F 78 18 217/116 H 97 12/18/18 19:21 12/18/18 19:21 12/18/18 19:21 12/18/18 19:21 12/18/18 19:21 - Notes Notes: PHYSICAL EXAMINATION: GENERAL: Well-appearing and in no acute distress. HEAD: Atraumatic, normocephalic. EYES: Pupils equal round and reactive to light, extraocular movements intact, sclera anicteric, conjunctiva are normal. ENT: nares patent, oropharynx clear without exudates. Moist mucous membranes. NECK: Normal range of motion, supple without lymphadenopathy LUNGS: CTAB and equal. No wheezes rales or rhonchi. HEART: Regular rate and rhythm without murmurs ABDOMEN: Soft, no tenderness. No facial grimacing/wincing upon palpation. No guarding, no rebound. EXTREMITIES: Normal range of motion, no pitting edema. No cyanosis. NEUROLOGICAL: Cranial nerves grossly intact. Normal sensory/motor exams. PSYCH: Normal mood, normal affect. SKIN: Warm, Dry, normal turgor, no rashes or lesions noted Course - Re-evaluation Re-evalutation: 12/18/18 19:43 MEDICAL DECISION MAKING: Concern for bronchitis URI allergic rhinitis Low suspicion for pneumonia given the history and exam findings Will prescribe azithromycin Tessalon and a dose of Tessalon here The patient does not have any chest pain shortness of breath headache or focal neurological issue For this reason, do not feel he is having hypertensive crisis and do not feel is asymptomatic hypertension needs treating Discussed with patient to miner pick his medications from the pharmacy (states he does have refills) and start taking his BP meds Also discussed with him to stop using Mucinex and other OTC cough medications other than Coricidin Patient understands and agrees to the plan of care - Vital Signs Vital signs: Temp Pulse Resp BP Pulse Ox 98.4 F 78 18 217/116 H 97 12/18/18 19:21 12/18/18 19:21 12/18/18 19:21 12/18/18 19:21 12/18/18 19:21 Discharge - Discharge Clinical Impression: Cough Condition: Fair Disposition: HOME, SELF-CARE Additional Instructions: Finish the antibiotics for respiratory infection. Use Coricidin [id number] medication for your symptoms as this will not affect your blood pressure. Use the TESSALON for cough. Do not skip any doses of your blood pressure medication otherwise you will of a stroke or heart attack. You were seen in the emergency department at [facility]. If you were given any sedating medications, be sure not to operate heavy machinery (example - driving) and be sure you are not too sedated to walk appropriately. Please followup with your primary physician in the next few days for further management/evaluation. Please return to the emergency department for worsening of symptoms or any symptom that you deem to be concerning or life-threatening. Thank you for allowing us to be part of your care. Prescriptions: Benzonatate [Tessalon Perles 100 mg Capsule] 100 mg PO Q8HP PRN #40 capsule PRN Reason: Azithromycin [Zithromax 250 mg Tablet] 250 mg PO ASDIR PRN #6 tablet PRN Reason:
== END 2018-12-18 19:47 | disposition home or self-care (01) ==
LOC: ER 19:18
DX: R05 Cough (principal); R50.9 Fever, unspecified; R52 Pain, unspecified; I10 Essential (primary) hypertension; T50.906A Underdosing of unspecified drugs, medicaments and biological substances, initial encounter; Z91.128 Patient's intentional underdosing of medication regimen for other reason; Z91.14 Patient's other noncompliance with medication regimen; Z91.030 Bee allergy status
CPT/HCPCS: 99283

== ENCOUNTER 2019-01-25 16:48 | Emergency (ER) | payer SELFPAY ==
[2019-01-25] MEDS ORDERED: DIPH/PERTUSS(ACELL)/TETANUS VAC/PF 0.5 ML SYR (>=10YO) IM ONE (17:01)
[2019-01-25 17:03] VITALS: BP 231/120
--- NOTE | 2019-01-25 17:12 | ER Document Report ---
ED Head/Face/Scalp Injury - General Chief Complaint: Head Injury Stated Complaint: HEAD INJURY Time Seen by Provider: 01/25/19 17:07 Mode of Arrival: Ambulatory Information source: Patient TRAVEL OUTSIDE OF THE [place] IN LAST 30 DAYS: No - HPI Patient complains to provider of: Laceration Injury to: Scalp Notes: Patient here with complaints of laceration to the scalp. The patient states he was cutting grass when he excellently cut his head on the sharp edge of a metal overhang. No loss of consciousness. Bleeding is controlled. No blood thinners. No blurred or loss of vision. No numbness, tingling, weakness. No chest pain or shortness of breath. No nausea, vomiting, diarrhea. He complains of some mild pain is constant. Nothing makes it better or worse. Patient has a history of hypertension, he has not been taking his blood pressure medications. He denies any chest pain, shortness of breath, headache, blurred vision, dizziness, numbness, tingling, weakness. His blood pressure is noted to be elevated on today's visit, I offered to work him up regarding this, he declines stating that he feels fine and he will start taking his blood pressure medication and follow-up with his doctor. - Related Data Allergies/Adverse Reactions: No Known Drug Allergies Allergy (Verified 12/18/18 19:20) bees Allergy (Severe, Uncoded 12/18/18 19:20) Past Medical History - Social History Smoking Status: Unknown if Ever Smoked Family History: DM, Hypertension, Malignancy Patient has suicidal ideation: No Patient has homicidal ideation: No - Past Medical History Cardiac Medical History: Reports: Hx Congestive Heart Failure, Hx Hypertension Endocrine Medical History: Denies: Hx Diabetes Mellitus Type 1, Hx Diabetes Mellitus Type 2 Renal/ Medical History: Denies: Hx Peritoneal Dialysis Psychiatric Medical History: Reports: Hx Depression - Immunizations Hx Diphtheria, Pertussis, Tetanus Vaccination: Yes Review of Systems - Review of Systems -: Yes All other systems reviewed and negative Physical Exam - Vital signs Vitals: Temp Pulse Resp BP 98.3 F 85 18 231/120 H 01/25/19 17:02 01/25/19 17:02 01/25/19 17:02 01/25/19 17:02 - Notes Notes: GENERAL: alert, cooperative, nontoxic, no distress. HEAD: normocephalic, 10 cm superficial approximated laceration to the left aspect of the upper scalp with no active bleeding. No foreign body. EYES: conjunctiva pink without discharge, no external redness or swelling. EARS: no external swelling, no external redness NOSE: atraumatic, no external swelling MOUTH/THROAT: mucous membranes moist and pink NECK: soft, supple, full range of motion, no meningismus. CHEST: no distress, lungs clear and equal throughout. No wheezing, rales, rhonchi. CARDIAC: regular rate and rhythm, no murmur, normal capillary refill, normal pulses. BACK: full range of motion, no CVA tenderness. EXTREMITIES: full range of motion of all extremities. No redness, no swelling. NEURO: alert and oriented 3, no focal deficits, full range of motion of all extremities. PYSCH: appropriate mood, affect. Patient is cooperative. SKIN: pink, warm, dry, no rash. Course - Re-evaluation Re-evalutation: 01/25/19 17:09 Patient is nontoxic-appearing with stable vitals. Patient here with complaints of laceration to the scalp. He was cutting grass when he actually cut it on the sharp edge of a metal overhang. Tetanus was updated. Laceration is superficial, approximated, not actively bleeding. This point I do believe that skin glue would work well for this laceration as I cannot approximated any further note already is. Wound was cleaned, skin glue was applied and the patient tolerated this well. Patient has a history of hypertension, he has not been taking his antihypertensive medications. He has no hypertensive symptoms at this time. I offered to evaluate and work him up regarding his elevated blood pressure, he states that he feels fine and will start taking his medication and follow-up with his doctor. Follow-up for any increasing pain, fever, redness, drainage, severe headache, blurred or loss of vision, numbness, tingling, weakness, chest pain or shortness of breath, or for any further concerns. The patient's emergency department workup and current diagnosis were explained to the patient and or family. Follow-up instructions were provided. Medications if prescribed were discussed. Instructions for when to return to the emergency department including specific worrisome symptoms were discussed with the patient and/or family. - Vital Signs Vital signs: Temp Pulse Resp BP Pulse Ox 98.3 F 85 18 231/120 H 01/25/19 17:02 01/25/19 17:02 01/25/19 17:02 01/25/19 17:02 Procedures - Laceration/Wound Repair Scalp Wound length (cm): 10 Wound's Depth, Shape: Superficial Laceration pre-procedure: Shur-Clens applied Wound explored: Clean Wound Repaired With: Dermabond Post-procedure NV exam normal: Yes Complications: No Discharge - Discharge Clinical Impression: Scalp laceration Qualifiers: Encounter type: initial encounter Qualified Code(s): S01.01XA - Laceration without foreign body of scalp, initial encounter Condition: Stable Disposition: HOME, SELF-CARE Instructions: Laceration Care (OM), Tetanus Immunization Given ([facility]) Additional Instructions: Keep wound clean and dry. Follow-up for increasing pain, fever, redness, drainage. Your blood pressure was noted to be extremely elevated today. Make sure you take your blood pressure medication every day and follow-up with your primary care doctor regarding her elevated blood pressure. Return for severe headache, blurred vision, numbness, tingling, weakness, chest pain, shortness of breath, any further concerns. Forms: Elevated Blood Pressure, Smoking Cessation Education Referrals: [facility] [Provider Group] - Follow up as needed
== END 2019-01-25 17:15 | disposition home or self-care (01) ==
LOC: ER 16:48
PROC: 0HQ0XZZ Repair Scalp Skin, External Approach (ICD-10-PCS; principal; 2019-01-25)
DX: S01.01XA Laceration without foreign body of scalp, initial encounter (principal); W22.8XXA Striking against or struck by other objects, initial encounter; I50.9 Heart failure, unspecified; I11.0 Hypertensive heart disease with heart failure; Z91.14 Patient's other noncompliance with medication regimen
CPT/HCPCS: 90715; 99282

== ENCOUNTER 2019-02-12 02:24 | Inpatient (IN) | payer SELFPAY ==
[2019-02-12] MEDS ORDERED: ASPIRIN 81 MG TABLET, CHEWABLE ONE (02:38)
[2019-02-12] MEDS ORDERED: MORPHINE SULFATE 10 MG/ML INJ IV PRN ×2 (02:38→11:33)
[2019-02-12] MEDS ORDERED: ASPIRIN 81 MG TABLET, CHEWABLE PO ONE (02:38)
[2019-02-12] MEDS ORDERED: NITROGLYCERIN 0.4 MG/TAB 25 TAB/BOTTLE ONE (02:40)
[2019-02-12] MEDS: NITROGLYCERIN 0.4 MG/TAB 25 TAB/BOTTLE SL PRN ×2 (02:43→02:48)
[2019-02-12 02:49] LABS: HEMATOCRIT 41.2 % (37.9-51.0); HEMOGLOBIN 13.7 g/dL (13.5-17.0); MEAN CORPUSCULAR HGB CONC 33.3 g/dL (32.0-36.0); MEAN CORPUSCULAR VOLUME 84 fl (80-97); PLATELET COUNT 282 10^3/uL (150-450); RED CELL DISTRIBUTION WIDTH 14.7 % (11.5-14.0); WHITE BLOOD COUNT 7.4 10^3/uL (4.0-10.5)
[2019-02-12] MEDS ORDERED: NITROGLYCERIN 0.4 MG/TAB 25 TAB/BOTTLE SL ONE (03:06)
[2019-02-12 03:07] LABS: ABSOLUTE LYMPHOCYTES# (MANUAL) 1.9 10^3/uL (0.5-4.7); ABSOLUTE MONOCYTES # (MANUAL) 0.2 10^3/uL (0.1-1.4); ABSOLUTE NEUTROPHILS# (MANUAL) 5.1 10^3/uL (1.7-8.2); BASOPHILS % (MANUAL) 0 % (0-2); EOSINOPHILS % (MANUAL) 2 % (0-6); LYMPHOCYTES % (MANUAL) 26 % (13-45); MONOCYTES % (MANUAL) 3 % (3-13); SEGMENTED NEUTROPHILS % (MAN) 69 % (42-78); TOTAL CELLS COUNTED 100
[2019-02-12 03:08] LABS: PLATELET COMMENT ADEQUATE; TOXIC VACUOLATION PRESENT
--- NOTE | 2019-02-12 03:08 | RADIOLOGY REPORT (SQ) ---
EXAM DESCRIPTION: XR CHEST 1 VIEW COMPLETED DATE/TME: 02/12/2019 02:38 CLINICAL HISTORY: 48 years Male, cp COMPARISON: 10/24/16 NUMBER OF VIEWS/TECHNIQUE: 1/AP FINDINGS: Adequate lung volume, clear parenchyma, normal cardiac silhouette, and intact bony thorax. IMPRESSION: No acute cardiopulmonary findings.
[2019-02-12 03:09] LABS: RBC MORPHOLOGY COMMENT NORMO-CYTIC/CHROMIC
[2019-02-12 03:16] LABS: ALANINE AMINOTRANSFERASE 41 U/L (21-72); ALBUMIN 3.7 g/dL (3.5-5.0); ALKALINE PHOSPHATASE 64 U/L (38-126); ANION GAP 9 (5-19); ASPARTATE AMINO TRANSFERASE 36 U/L (17-59); BILIRUBIN,DIRECT 0.3 mg/dL (0.0-0.4); BILIRUBIN,TOTAL 0.3 mg/dL (0.2-1.3); BLOOD UREA NITROGEN 15 mg/dL (7-20); CALCIUM 9.3 mg/dL (8.4-10.2); CARBON DIOXIDE 28 mmol/L (22-30); CHLORIDE 107 mmol/L (98-107); GLUCOSE 107 mg/dL (75-110); POTASSIUM 3.6 mmol/L (3.6-5.0); SODIUM 144.3 mmol/L (137-145); TOTAL PROTEIN 7.1 g/dL (6.3-8.2)
[2019-02-12] MEDS ORDERED: ACETAMINOPHEN 325 MG TABLET PO ONE (03:32)
[2019-02-12] MEDS ORDERED: NICARDIPINE HCL RTU, ISO-OS 20 MG/200 ML RTUINJ IV PRN (04:49)
[2019-02-12] MEDS ORDERED: DIAZEPAM INJ 10 MG/2 ML DISP.SYRIN ONE (05:04)
[2019-02-12] MEDS ORDERED: DIAZEPAM INJ 10 MG/2 ML DISP.SYRIN IV ONE (05:06)
--- NOTE | 2019-02-12 05:07 | ER Document Report ---
Entered by REJI LI SCRIBE 02/12/19 0506 Acting as scribe for:CAROLINA GRANADOS DO ED General - General Chief Complaint: Chest Pain Stated Complaint: CHEST PAIN Time Seen by Provider: 02/12/19 02:38 Notes: Patient is a 48 year old male that presents to the emergency department complaining of chest pain with associated diaphoresis. Patient states he currently has a drug addiction to crack, and he last smoked it two days ago. Patient states that the pain he is experiencing radiates to his neck, back, and left arm. Patient describes it as "tightening" pain it is constant, progressing in severity since onset. Patient also states that his heart rate was high upon arriving at the hospital. Patient also complains of dyspnea on exertion. Patient states he has had similar symptoms in the past. Patient states in the past, his symptoms were not as severe and went away on their own. Patient denies nausea or vomiting. TRAVEL OUTSIDE OF THE [place] IN LAST 30 DAYS: No - Related Data Allergies/Adverse Reactions: No Known Drug Allergies Allergy (Verified 12/18/18 19:20) bees Allergy (Severe, Uncoded 12/18/18 19:20) Past Medical History - General Information source: Patient - Social History Smoking Status: Current Every Day Smoker Cigarette use (# per day): Yes Frequency of alcohol use: Heavy Drug Abuse: Other - crack Family History: Reviewed & Not Pertinent, DM, Hypertension, Malignancy Patient has suicidal ideation: No Patient has homicidal ideation: No - Past Medical History Cardiac Medical History: Reports: Hx Congestive Heart Failure, Hx Hypertension Psychiatric Medical History: Reports: Hx Depression Past Surgical History: Reports: Hx Herniorrhaphy - Immunizations Hx Diphtheria, Pertussis, Tetanus Vaccination: Yes Review of Systems - Review of Systems Constitutional: No symptoms reported EENT: No symptoms reported Cardiovascular: See HPI, Chest pain Respiratory: See HPI, Short of breath Gastrointestinal: denies: Nausea, Vomiting Genitourinary: No symptoms reported Male Genitourinary: No symptoms reported Musculoskeletal: No symptoms reported Skin: No symptoms reported Hematologic/Lymphatic: No symptoms reported Neurological/Psychological: No symptoms reported -: Yes All other systems reviewed and negative Physical Exam - Vital signs Vitals: Pulse Ox 100 02/12/19 02:39 - Notes Notes: PHYSICAL EXAM GENERAL: Alert, interacts well. Initially anxious. HEAD: Pitting edema. Normocephalic, atraumatic. EYES: Pupils equal, round, and reactive to light. Extraocular movements intact. ENT: Oral mucosa moist, tongue midline. NECK: Full range of motion. Supple. Trachea midline. LUNGS: Clear to auscultation bilaterally, no wheezes, rales, or rhonchi. No respiratory distress. HEART: Tachycardia. Regular rhythm. No murmurs, gallops, or rubs. ABDOMEN: Soft, non-tender. Non-distended. Bowel sounds present in all 4 quadrants. No guarding, rigidity, or rebound. EXTREMITIES: Moves all 4 extremities spontaneously. 1+ pitting edema bilateral lower extremities, radial and dorsalis pedis pulses 2/4 bilaterally. No cyanosis. NEUROLOGICAL: Alert and oriented x3. Normal speech. PSYCH: Normal affect, normal mood. SKIN: Warm, dry, mild diffuse edema-nasal cannula left imprint on face. Course - Re-evaluation Re-evalutation: 02/12/19 05:03 Patient came in with fairly severe chest pain significant hypertension and tachycardia, after 2 sublingual nitroglycerin the chest pain went away after a third sublingual nitroglycerin his blood pressure was down to 201/153 but his heart rate normalized, patient was then given acetaminophen for his headache which relieved his headache. Patient is persistently hypertensive, ischemic EKG changes resolved with normalization of his heart rate and taking nitroglycerin. Patient is started on nicardipine drip. Blood work shows troponin leak likely related to crack cocaine use, elevated creatinine likely related to crack cocaine use and hypertensive urgency, chest x-ray shows no infiltrate. Discussed with Dr. Akbar who agrees to admit the patient to his service on the [facility]. - Vital Signs Vital signs: Temp Pulse Resp BP Pulse Ox 98.9 F 18 185/119 H 98 02/12/19 02:44 02/12/19 07:31 02/12/19 07:31 02/12/19 07:31 - Laboratory Result Diagrams: 02/12/19 02:40 02/12/19 02:40 Laboratory results interpreted by me: 02/12/19 02/12/19 02/12/19 02:40 02:40 02:40 RDW 14.7 H Creatinine 1.64 H Est GFR ( Amer) 54 L Est GFR (Non-Af Amer) 45 L Creatine Kinase NT-Pro-B Natriuret Pep 811 H 02/12/19 02:40 RDW Creatinine Est GFR ( Amer) Est GFR (Non-Af Amer) Creatine Kinase 483 H NT-Pro-B Natriuret Pep - EKG Interpretation by Me Additional EKG results interpreted by me: 02/12/19 05:04 Initial EKG shows sinus tachycardia at a rate of 134, left anterior hemiblock, slight ST segment elevations in V1, V2 and V3, no more than 1 mm, slight ST segment depressions in V5 and V6 again no more than 1 mm with T wave inversions in V6 per my interpretation. Repeat EKG performed at 306 shows sinus tachycardia at a rate of 129, first-degree AV block, left axis deviation, no significant change in the prior minimal ST segment elevations V1 through V3, T wave inversions and V6 have resolved per my interpretation. Repeat EKG at 341 shows sinus rhythm at a rate of 77, left axis deviation, prolonged QT interval, LVH with secondary repolarization abnormality, T wave inversions in V5 and V6 as well as 1 and aVL per my interpretation. Critical Care Note - Critical Care Note Total time excluding time spent on procedures (mins): 35 Discharge - Discharge Clinical Impression: Hypertensive emergency, Elevated troponin, Cocaine abuse Acute renal failure Qualifiers: Acute renal failure type: unspecified Qualified Code(s): N17.9 - Acute kidney failure, unspecified Condition: Fair Disposition: ADMITTED INPATIENT Admitting Provider: Raffy (Hospitalist) Unit Admitted: IMCU I personally performed the services described in the documentation, reviewed and edited the documentation which was dictated to the scribe in my presence, and it accurately records my words and actions.
[2019-02-12] MEDS ORDERED: IPRATROPIUM/ALBUTEROL 0.5-2.5 MG/3 ML AMPUL NEB PRN (05:18)
[2019-02-12] MEDS ORDERED: ACETAMINOPHEN 325 MG TABLET PO PRN (05:18)
[2019-02-12] MEDS ORDERED: MAGNESIUM HYDROXIDE SUSP 30 ML UDCUP PO PRN (05:18)
[2019-02-12] MEDS ORDERED: MAG HYDROX/AL HYDROX/SIMETH SUSP 30 ML UDCUP PO PRN (05:18)
[2019-02-12] MEDS ORDERED: NITROGLYCERIN 2% OINTMENT 1 GM PACKET TP ONE (05:22)
[2019-02-12] MEDS ORDERED: ENALAPRILAT DIHYDRATE INJ/PF 2.5 MG/2 ML SDV IV ONE (05:22)
[2019-02-12] MEDS ORDERED: FAMOTIDINE 20 MG TABLET PO ONE (05:45)
[2019-02-12] MEDS ORDERED: HEPARIN SOD (PORCINE) 5,000 UNIT/ML 1 ML SYRINGE SUBCUT SCH (06:00)
--- NOTE | 2019-02-12 06:47 | PDOC H&P ---
History of Present Illness Admission Date/PCP: 02/12/19 05:19 Patient complains of: Chest pain History of Present Illness: ANHTONY AMBRIZ is a 48 year old male with a past medical history of hypertension, stage II chronic kidney disease, regular crack cocaine use with a blood pressure of 240/120, tachypnea, complaining of shortness of breath and chest pain. Use and medication noncompliance. He receives nicardipine referred to the hospitalist for admission. Patient is currently pain-free Past Medical History Cardiac Medical History: Reports: Congestive Heart Failure, Hypertension Endocrine Medical History: Denies: Diabetes Mellitus Type 1, Diabetes Mellitus Type 2 Renal/ Medical History: Reports: Chronic Kidney Disease Psychiatric Medical History: Reports: Depression, Substance Abuse Social History Information Source: Patient Smoking Status: Current Every Day Smoker Frequency of Alcohol Use: Social Hx Recreational Drug Use: Yes Drugs: Cocaine, Marijuana Hx Prescription Drug Abuse: No - Advance Directive Resuscitation Status: Full Code Family History Family History: DM, Hypertension, Malignancy Parental Family History Reviewed: Yes Children Family History Reviewed: Yes Sibling(s) Family History Reviewed.: Yes Medication/Allergy Home Medications: Lisinopril 10 mg PO DAILY #30 tablet 08/08/17 Cephalexin Monohydrate [Keflex 500 mg Capsule] 500 mg PO Q6H 7 Days #28 capsule 06/07/18 Clonidine HCl 0.1 mg PO TID #9 tablet 06/07/18 Lisinopril 20 mg PO DAILY #30 tablet 06/07/18 Ciprofloxacin HCl [Cipro 500 mg Tablet] 500 mg PO BID #28 tablet 08/01/18 Lisinopril [Zestril] 20 mg PO DAILY #15 tablet 08/01/18 Azithromycin [Zithromax 250 mg Tablet] 250 mg PO ASDIR PRN #6 tablet 12/18/18 Benzonatate [Tessalon Perles 100 mg Capsule] 100 mg PO Q8HP PRN #40 capsule 12/18/18 Allergies/Adverse Reactions: No Known Drug Allergies Allergy (Verified 12/18/18 19:20) bees Allergy (Severe, Uncoded 12/18/18 19:20) Review of Systems Constitutional: ABSENT: chills, fever(s), headache(s), weight gain, weight loss Eyes: ABSENT: visual disturbances Ears: ABSENT: hearing changes Cardiovascular: ABSENT: chest pain, dyspnea on exertion, edema, orthropnea, palpitations Respiratory: ABSENT: cough, hemoptysis Gastrointestinal: ABSENT: abdominal pain, constipation, diarrhea, hematemesis, hematochezia, nausea, vomiting Genitourinary: ABSENT: dysuria, hematuria Musculoskeletal: ABSENT: joint swelling Integumentary: ABSENT: rash, wounds Neurological: ABSENT: abnormal gait, abnormal speech, confusion, dizziness, focal weakness, syncope Psychiatric: ABSENT: anxiety, depression, homidical ideation, suicidal ideation Endocrine: ABSENT: cold intolerance, heat intolerance, polydipsia, polyuria Hematologic/Lymphatic: ABSENT: easy bleeding, easy bruising Physical Exam Vital Signs: Temp Pulse Resp BP Pulse Ox 98.9 F 18 189/135 H 98 02/12/19 02:44 02/12/19 05:46 02/12/19 05:46 02/12/19 05:46 Intake & Output 02/10/19 02/11/19 02/12/19 11:59 11:59 11:59 Weight 118.4 kg General appearance: PRESENT: cooperative, obese, severe distress. ABSENT: hard of hearing Head exam: PRESENT: atraumatic, normocephalic Eye exam: PRESENT: conjunctiva pink, EOMI, PERRLA. ABSENT: scleral icterus Ear exam: PRESENT: normal external ear exam Mouth exam: PRESENT: moist, tongue midline Neck exam: ABSENT: carotid bruit, JVD, lymphadenopathy, thyromegaly Respiratory exam: PRESENT: accessory muscle use, crackles, prolonged expiratory phas, symmetrical, tachypnea. ABSENT: rhonchi, stridor Cardiovascular exam: PRESENT: gallop, +S1, +S2, systolic murmur, tachycardia Pulses: PRESENT: normal dorsalis pedis pul Vascular exam: PRESENT: normal capillary refill GI/Abdominal exam: PRESENT: normal bowel sounds, soft. ABSENT: distended, guarding, mass, organolmegaly, rebound, tenderness Rectal exam: PRESENT: deferred Extremities exam: PRESENT: full ROM. ABSENT: calf tenderness, clubbing, pedal edema Neurological exam: PRESENT: alert, awake, oriented to person, oriented to place, oriented to time, oriented to situation, CN II-XII grossly intact. ABSENT: motor sensory deficit Psychiatric exam: PRESENT: anxious Skin exam: PRESENT: dry, intact, warm. ABSENT: cyanosis, rash Results Laboratory Results: 02/12/19 02:40 02/12/19 02:40 02/12/19 02/12/19 02/12/19 02:40 02:40 02:40 WBC 7.4 RBC 4.90 Hgb 13.7 Hct 41.2 MCV 84 MCH 28.0 MCHC 33.3 RDW 14.7 H Plt Count 282 Seg Neutrophils % Not Reportable Lymphocytes % Not Reportable Monocytes % Not Reportable Eosinophils % Not Reportable Basophils % Not Reportable Absolute Neutrophils Not Reportable Absolute Lymphocytes Not Reportable Absolute Monocytes Not Reportable Absolute Eosinophils Not Reportable Absolute Basophils Not Reportable Sodium 144.3 Potassium 3.6 Chloride 107 Carbon Dioxide 28 Anion Gap 9 BUN 15 Creatinine 1.64 H Est GFR ( Amer) 54 L Est GFR (Non-Af Amer) 45 L Glucose 107 Calcium 9.3 Magnesium 1.9 Total Bilirubin 0.3 AST 36 ALT 41 Alkaline Phosphatase 64 Total Protein 7.1 Albumin 3.7 02/12/19 02/12/19 02/12/19 02:40 02:40 02:40 Creatine Kinase 483 H CK-MB (CK-2) Troponin I 0.167 NT-Pro-B Natriuret Pep 811 H 02/12/19 02:40 Creatine Kinase CK-MB (CK-2) 3.52 Troponin I Cancelled NT-Pro-B Natriuret Pep Impressions: Chest X-Ray 02/12/19 02:38 IMPRESSION: No acute cardiopulmonary findings. Assessment and Plan - Diagnosis (1) Hypertensive emergency Is this a current diagnosis for this admission?: Yes Plan: Taper Cardene, scheduled Valium, clonidine, Norvasc, Vasotec. (2) Acute renal failure Qualifiers: Acute renal failure type: unspecified Qualified Code(s): N17.9 - Acute kidney failure, unspecified Is this a current diagnosis for this admission?: Yes Plan: Acute on chronic renal failure secondary to #1. Avoid nephrotoxic meds and do ses reevaluate chemistry. (3) Cocaine abuse Is this a current diagnosis for this admission?: Yes Plan: Valium and clonidine with mental health consult (4) Elevated troponin Is this a current diagnosis for this admission?: Yes Plan: Secondary to #1 Compcare by cocaine. Follow-up cardiology consult and cardiac enzymes. - Time Time Spent with patient: 35 or more minutes - Inpatient Certification Medical Necessity: Need Close Monitoring Due to Risk of Patient Decompensation
[2019-02-12] MEDS ORDERED: AMLODIPINE BESYLATE 10 MG TABLET PO ONE (07:00)
[2019-02-12] MEDS: CLONIDINE HCL 0.2 MG TABLET PO SCH ×4 (07:22→23:08)
--- NOTE | 2019-02-12 07:55 | EKG REPORT ---
SEVERITY:- ABNORMAL ECG - SINUS TACHYCARDIA FIRST DEGREE AV BLOCK LEFT ATRIAL ABNORMALITY PROBABLE LVH WITH SECONDARY REPOL ABNRM PROLONGED QT INTERVAL : Confirmed by: Oanh Poe MD 12-Feb-2019 07:54:54
--- NOTE | 2019-02-12 07:55 | EKG REPORT ---
SEVERITY:- ABNORMAL ECG - SINUS RHYTHM LEFT ATRIAL ABNORMALITY PROBABLE LVH WITH SECONDARY REPOL ABNRM ANTERIOR Q WAVES, POSSIBLY DUE TO LVH PROLONGED QT INTERVAL : Confirmed by: Oanh Poe MD 12-Feb-2019 07:54:37
[2019-02-12] MEDS ORDERED: HYDRALAZINE HCL INJ/PF 20 MG/1 ML SDV ONE (08:20)
[2019-02-12] MEDS ORDERED: HYDRALAZINE HCL INJ/PF 20 MG/1 ML SDV IV PRN (08:36)
--- NOTE | 2019-02-12 09:56 | Progress Note ---
Provider Note Provider Note: 48 y.o. M with a PMH of hypertension, CHF, stage II chronic kidney disease, regular crack cocaine use presented to [facility] with chest pain. Admitted to hospitalist service for hypertensive emergency with BP 207/153 and creatinine 1.64. EKG shows evidence of LVH and T wave inversion in lateral leads. CXR demonstrates cardiomegaly and pulmonary vascular congestion. Agree with selling underwriter's efrain of care. Discussed case with roofer assistant, Dr. Hicks, who recommends obtaining an ECHOcardiogram. 1. HYPERTENSIVE EMERGENCY: secondary to anti-HTN medication noncompliance and cocaine use. Treated with Cardene gtt in ED, transitioned to PO clonidine, amlodipine, lisinopril. PRN IV hydralazine for SBP > 170. Avoid beta prema use in cocaine induced HTN. 2. CHF: secondary to cocaine use. patient has a known history of CHF, does not take medication for heart disease or see a roofer assistant. Plan to obtain an ECHOcardiogram. Currently on ACEI. CCB. Alpha agonist. Daily aspirin. Cardiology has been consulted. 3. NONCOMPLIANCE: Will consult discharge planning regarding prescription drug assistance upon discharge
--- NOTE | 2019-02-12 10:48 | PDOC CONSULTATION ---
Consultation Consult Date: 02/12/19 Provider Consulted: WALI RUELAS Consult reason:: Chest pain with elevated cardiac biomarker History of Present Illness Admission Date/PCP: 02/12/19 05:19 History of Present Illness: ANTHONY AMBRIZ is a 48 year old male With past medical history of hypertension and not on any medications, history of crack cocaine use and chronic cigarette smoking comes in with complaints of chest pain and shortness of breath which started last night. Patient claims that he uses crack cocaine and last use was around 2 days ago and since last night he developed chest discomfort/pain which shortness of breath on even mild exertion which brought him to the ER where he was found to have uncontrolled hypertension. He is not an elaborate historian but does admit to shortness of breath on exertion at times. He denies any previous chest pain though. He denies any dizziness but he did feel like his heart was racing yesterday. He is single and lives with his fiance. He smokes less than a pack of cigarettes a day and drinks alcohol occasionally. He admits to using crack cocaine frequently. He denies any family history of coronary artery disease. He does admit to having a history of hypertension but does not take any medications at home. He currently employed in a [employer] company. Past Medical History Cardiac Medical History: Reports: Congestive Heart Failure, Hypertension Endocrine Medical History: Denies: Diabetes Mellitus Type 1, Diabetes Mellitus Type 2 Renal/ Medical History: Reports: Chronic Kidney Disease Psychiatric Medical History: Reports: Depression, Substance Abuse Past Surgical History Past Surgical History: Reports: Herniorrhaphy Social History Smoking Status: Current Every Day Smoker Frequency of Alcohol Use: Social Hx Recreational Drug Use: Yes Drugs: Cocaine Hx Prescription Drug Abuse: No - Advance Directive Resuscitation Status: Full Code Family History Family History: Reviewed & Not Pertinent, DM, Hypertension, Malignancy Parental Family History Reviewed: Yes Children Family History Reviewed: No Sibling(s) Family History Reviewed.: No Medication/Allergy Home Medications: No Home Medications 02/12/19 Allergies/Adverse Reactions: No Known Drug Allergies Allergy (Verified 12/18/18 19:20) bees Allergy (Severe, Uncoded 12/18/18 19:20) Review of Systems Cardiovascular: PRESENT: chest pain, dyspnea on exertion Physical Exam Vital Signs: Temp Pulse Resp BP Pulse Ox 97.4 F 65 16 187/112 H 96 02/12/19 08:07 02/12/19 09:56 02/12/19 09:56 02/12/19 08:07 02/12/19 09:56 Intake & Output 02/11/19 02/12/19 02/13/19 06:59 06:59 06:59 Intake Total 236 Output Total 300 Balance -300 236 Weight 118.4 kg 118.4 kg General appearance: PRESENT: no acute distress Head exam: PRESENT: atraumatic, normocephalic Neck exam: PRESENT: full ROM Respiratory exam: PRESENT: clear to auscultation sandra, unlabored Cardiovascular exam: PRESENT: +S1, +S2 - Prominent apical impulse noted. Pulses: PRESENT: normal carotid pulses, +2 pedal pulses bilateral GI/Abdominal exam: PRESENT: normal bowel sounds, soft Extremities exam: PRESENT: full ROM Neurological exam: PRESENT: alert, oriented to person, oriented to place, oriented to time, oriented to situation, CN II-XII grossly intact Results Laboratory Results: 02/12/19 02:40 02/12/19 02:40 02/12/19 02/12/19 02/12/19 02:40 02:40 02:40 WBC 7.4 RBC 4.90 Hgb 13.7 Hct 41.2 MCV 84 MCH 28.0 MCHC 33.3 RDW 14.7 H Plt Count 282 Seg Neutrophils % Not Reportable Lymphocytes % Not Reportable Monocytes % Not Reportable Eosinophils % Not Reportable Basophils % Not Reportable Absolute Neutrophils Not Reportable Absolute Lymphocytes Not Reportable Absolute Monocytes Not Reportable Absolute Eosinophils Not Reportable Absolute Basophils Not Reportable Sodium 144.3 Potassium 3.6 Chloride 107 Carbon Dioxide 28 Anion Gap 9 BUN 15 Creatinine 1.64 H Est GFR ( Amer) 54 L Est GFR (Non-Af Amer) 45 L Glucose 107 Calcium 9.3 Magnesium 1.9 Total Bilirubin 0.3 AST 36 ALT 41 Alkaline Phosphatase 64 Total Protein 7.1 Albumin 3.7 02/12/19 02/12/19 02/12/19 02:40 02:40 02:40 Creatine Kinase 483 H CK-MB (CK-2) Troponin I 0.167 NT-Pro-B Natriuret Pep 811 H 02/12/19 02:40 Creatine Kinase CK-MB (CK-2) 3.52 Troponin I Cancelled NT-Pro-B Natriuret Pep Impressions: Chest X-Ray 02/12/19 02:38 IMPRESSION: No acute cardiopulmonary findings. Assessment & Plan - Diagnosis (1) Hypertensive emergency Is this a current diagnosis for this admission?: Yes (2) Elevated troponin Is this a current diagnosis for this admission?: Yes (3) Cocaine abuse Is this a current diagnosis for this admission?: Yes - Notes Notes: Reviewed labs, EKG and imaging tests done. Patient with recent cocaine use presented with hypertensive urgency with borderline elevated cardiac biomarkers and EKG suggestive of LVH with secondary repolarization changes. Mildly elevat ed troponin could be secondary to uncontrolled hypertension but in view of recent cocaine use will recommend monitoring of cardiac biomarkers and if there is significant elevation along with anginal sounding symptoms then patient will need to be transferred to facility with availability for invasive coronary work- up. Will recommend an echocardiogram to check for any wall motion abnormalities LV systolic dysfunction which will necessitate early invasive coronary work-up. If cardiac biomarkers trend down and echocardiogram shows no significant LV systolic dysfunction/wall motion abnormality then will recommend continuation of optimization of hypertensive therapy with calcium channel prema, JHON inhibitor and diuretic therapy and avoiding any beta-prema because of recent cocaine use. Spoke at length with patient regarding need for lifestyle change and cessation of smoking and substance abuse. Patient seems to be receptive. Plan of care discussed with primary team. Further recommendations based on echocardiogram results. Patient will need ischemia evaluation at some point when he is cocaine free. - Time Time Spent: 50 to 70 Minutes Smoking Education Provided: Over 3 minutes
[2019-02-12 11:15] LABS: CREATINE KINASE MB 5.09 ng/mL (<4.55)
[2019-02-12 11:17] LABS: TROPONIN I 0.559 ng/mL
[2019-02-12] MEDS: LISINOPRIL 10 MG TABLET PO SCH (11:26)
[2019-02-12] MEDS: DIAZEPAM 5 MG TABLET PO SCH ×4 (11:26→23:09)
[2019-02-12] MEDS: ENOXAPARIN SODIUM INJ 120 MG/0.8 ML DISP.SYRIN SUBCUT SCH ×2 (11:45→22:46)
[2019-02-12 17:03] LABS: CREATINE KINASE MB 4.32 ng/mL (<4.55); TROPONIN I 0.633 ng/mL
[2019-02-12] MEDS: FAMOTIDINE 20 MG TABLET PO SCH (22:49)
--- NOTE | 2019-02-12 23:26 | EKG REPORT ---
SEVERITY:- ABNORMAL ECG - SINUS RHYTHM PROBABLE LEFT ATRIAL ABNORMALITY PROBABLE LVH WITH SECONDARY REPOL ABNRM ANTERIOR Q WAVES, POSSIBLY DUE TO LVH PROLONGED QT INTERVAL : Confirmed by: Oanh Poe MD 12-Feb-2019 23:25:24
[2019-02-13 05:01] LABS: ABSOLUTE BASOPHILS # (AUTO) 0.1 10^3/uL (0.0-0.2); ABSOLUTE EOSINOPHILS # (AUTO) 0.2 10^3/uL (0.0-0.6); ABSOLUTE LYMPHOCYTES (AUTO) 1.9 10^3/uL (0.5-4.7); ABSOLUTE MONOCYTES (AUTO) 0.8 10^3/uL (0.1-1.4); ABSOLUTE NEUT (AUTO) 4.2 10^3/uL (1.7-8.2); BASOPHILS % (AUTO) 1.1 % (0-2); EOSINOPHILS % (AUTO) 2.7 % (0-6); HEMATOCRIT 36.3 % (37.9-51.0); LYMPHOCYTES % (AUTO) 26.8 % (13-45); MEAN CORPUSCULAR HEMOGLOBIN 27.8 pg (27.0-33.4); MEAN CORPUSCULAR VOLUME 84 fl (80-97); MONOCYTES % (AUTO) 10.5 % (3-13); PLATELET COUNT 254 10^3/uL (150-450); RED CELL DISTRIBUTION WIDTH 14.9 % (11.5-14.0); SEGMENTED NEUTROPHILS % (AUTO) 58.9 % (42-78); TOTAL CELLS COUNTED % (AUTO) 100 %; WHITE BLOOD COUNT 7.1 10^3/uL (4.0-10.5)
[2019-02-13 05:28] LABS: ANION GAP 10 (5-19); BLOOD UREA NITROGEN 15 mg/dL (7-20); CALCIUM 8.9 mg/dL (8.4-10.2); CARBON DIOXIDE 26 mmol/L (22-30); CHLORIDE 106 mmol/L (98-107); GLUCOSE 97 mg/dL (75-110); POTASSIUM 3.9 mmol/L (3.6-5.0); SODIUM 141.9 mmol/L (137-145)
[2019-02-13] MEDS: CLONIDINE HCL 0.2 MG TABLET PO SCH ×3 (06:04→18:09)
[2019-02-13] MEDS: DIAZEPAM 5 MG TABLET PO SCH ×2 (06:04→14:07)
[2019-02-13 07:27] LABS: APPEARANCE,URINE SLIGHTLY-CLOUDY; BILIRUBIN,URINE NEGATIVE (NEGATIVE); CALCIUM OXALATE CRYSTALS,URINE RARE /HPF; COLOR,URINE YELLOW; GLUCOSE, URINE NEGATIVE (NEGATIVE); KETONES,URINE NEGATIVE (NEGATIVE); LEUKOCYTE ESTERASE,URINE NEGATIVE (NEGATIVE); NITRITE,URINE NEGATIVE (NEGATIVE); PROTEIN,URINE NEGATIVE (NEGATIVE); URINE SPECIFIC GRAVITY 1.025; UROBILINOGEN,URINE NEGATIVE mg/dL (<2.0)
[2019-02-13 07:38] LABS: URINE AMPHETAMINES SCREEN NEGATIVE; URINE BARBITURATES SCREEN NEGATIVE; URINE MARIJUANA (THC) SCREEN NEGATIVE; URINE METHADONE SCREEN NEGATIVE; URINE PHENCYCLIDINE SCREEN NEGATIVE
[2019-02-13 08:15] LABS: URINE BENZODIAZEPINES SCREEN UNCONFIRMED POSITIVE; URINE COCAINE SCREEN UNCONFIRMED POSITIVE
--- NOTE | 2019-02-13 09:41 | EKG REPORT ---
SEVERITY:- ABNORMAL ECG - SINUS TACHYCARDIA PROBABLE LEFT ATRIAL ABNORMALITY PROBABLE LVH WITH SECONDARY REPOL ABNRM ANTERIOR Q WAVES, POSSIBLY DUE TO LVH BORDERLINE PROLONGED QT INTERVAL : Confirmed by: Oanh Poe MD 13-Feb-2019 09:41:00
--- NOTE | 2019-02-13 10:07 | PDOC PROGRESS REPORT ---
Subjective Progress Note for:: 02/13/19 Reason For Visit: HYPERTENSIVE EMERGENCY, COCAINE CHEST PAIN,ARF Patient seen at bedside and denies any complaints of chest pain or acute shortness of breath. He claims he feels better but has not been ambulating yet. Physical Exam Vital Signs: Temp Pulse Resp BP Pulse Ox 97.6 F 65 14 137/83 H 96 02/13/19 08:05 02/13/19 09:00 02/13/19 09:00 02/13/19 08:05 02/13/19 09:00 Intake & Output 02/12/19 02/13/19 02/14/19 06:59 06:59 06:59 Intake Total 1564 Output Total 300 550 Balance -300 1014 Weight 118.4 kg 117.3 kg General appearance: PRESENT: no acute distress Head exam: PRESENT: atraumatic, normocephalic Neck exam: PRESENT: full ROM Respiratory exam: PRESENT: clear to auscultation sandra, unlabored Cardiovascular exam: PRESENT: +S1, +S2, other - Prominent apical impulse. Pulses: PRESENT: +2 pedal pulses bilateral GI/Abdominal exam: PRESENT: normal bowel sounds, soft Neurological exam: PRESENT: alert, oriented to person, oriented to place, oriented to time, CN II-XII grossly intact Results Laboratory Results: 02/13/19 03:53 02/13/19 03:53 02/13/19 02/13/19 02/13/19 03:53 03:53 06:13 WBC 7.1 RBC 4.30 L Hgb 12.0 L Hct 36.3 L MCV 84 MCH 27.8 MCHC 33.0 RDW 14.9 H Plt Count 254 Seg Neutrophils % 58.9 Lymphocytes % 26.8 Monocytes % 10.5 Eosinophils % 2.7 Basophils % 1.1 Absolute Neutrophils 4.2 Absolute Lymphocytes 1.9 Absolute Monocytes 0.8 Absolute Eosinophils 0.2 Absolute Basophils 0.1 Sodium 141.9 Potassium 3.9 Chloride 106 Carbon Dioxide 26 Anion Gap 10 BUN 15 Creatinine 1.36 H Est GFR ( Amer) > 60 Est GFR (Non-Af Amer) 56 L Glucose 97 Calcium 8.9 Urine Color YELLOW Urine Appearance SLIGHTLY-CLOUDY Urine pH 5.0 Ur Specific [place] 1.025 Urine Protein NEGATIVE Urine Glucose (UA) NEGATIVE Urine Ketones NEGATIVE Urine Blood NEGATIVE Urine Nitrite NEGATIVE Ur Leukocyte Esterase NEGATIVE Urine WBC (Auto) 1 02/12/19 02/12/19 02/12/19 02:40 02:40 02:40 Creatine Kinase 483 H CK-MB (CK-2) Troponin I 0.167 NT-Pro-B Natriuret Pep 811 H 02/12/19 02/12/19 02/12/19 02:40 10:10 10:10 Creatine Kinase 338 H CK-MB (CK-2) 3.52 5.09 H Troponin I Cancelled 0.559 NT-Pro-B Natriuret Pep 02/12/19 02/12/19 02/12/19 16:14 16:14 22:05 Creatine Kinase 274 H CK-MB (CK-2) 4.32 Troponin I 0.633 0.529 NT-Pro-B Natriuret Pep 02/13/19 03:53 Creatine Kinase CK-MB (CK-2) Troponin I 0.403 NT-Pro-B Natriuret Pep Impressions: Chest X-Ray 02/12/19 02:38 IMPRESSION: No acute cardiopulmonary findings. Assessment & Plan - Diagnosis (1) Hypertensive emergency Is this a current diagnosis for this admission?: Yes (2) Elevated troponin Is this a current diagnosis for this admission?: Yes (3) Cocaine abuse Is this a current diagnosis for this admission?: Yes - Notes Notes: Review telemetry, labs, intake output and imaging test. Echocardiogram shows severe concentric LVH with diastolic dysfunction and preserved LV ejection fraction. Patient's cardiac biomarkers are trending down. Biomarker elevation likely secondary to hypertensive emergency but ischemia cannot be ruled out. Patient has been urged again to stay away from substance abuse and he will need ischemia evaluation in the next few weeks. Recommend continued observation as inpatient for now and Dr. Poe will assume cardiology care tomorrow. Continue patient on current medical therapy with aspirin, statin, calcium channel prema, JHON inhibitor and diuretic. Avoid beta-blockers. Smoking cessation and substance abuse cessation discussed with patient in detail. Recommend ambulation as tolerated today with continued telemetry monitoring. - Time Time with patient: Greater than 35 minutes Smoking Education Provided: Over 3 minutes
[2019-02-13] MEDS: FAMOTIDINE 20 MG TABLET PO SCH ×2 (10:19→22:12)
[2019-02-13] MEDS: AMLODIPINE BESYLATE 10 MG TABLET PO SCH (10:19)
[2019-02-13] MEDS: ENOXAPARIN SODIUM INJ 120 MG/0.8 ML DISP.SYRIN SUBCUT SCH ×2 (10:20→22:12)
[2019-02-13] MEDS: LISINOPRIL 10 MG TABLET PO SCH (10:20)
[2019-02-13] MEDS ORDERED: DIAZEPAM 5 MG TABLET ONE (14:05)
--- NOTE | 2019-02-13 15:36 | PDOC PROGRESS REPORT ---
Subjective Progress Note for:: 02/13/19 Subjective:: 48 y.o. M with a PMH of hypertension, CHF, stage II chronic kidney disease, regular crack cocaine use presented to [facility] with chest pain. Admitted to hospitalist service for hypertensive emergency with BP 207/153 and creatinine 1.64. EKG shows evidence of LVH and T wave inversion in lateral leads. CXR demonstrates cardiomegaly and pulmonary vascular congestion. Patient seen this morning on rounds, he is resting comfortably in bed on room air. He denies chest pain at this time. Cardiac enzymes peaked at 0.633, no longer trending. Echocardiogram shows severe concentric LVH with diastolic dysfunction and preserved LVEF. Plan to monitor for 24 hours, likely discharge home tomorrow. Reason For Visit: HYPERTENSIVE EMERGENCY, COCAINE CHEST PAIN,ARF Physical Exam Vital Signs: Temp Pulse Resp BP Pulse Ox 97.8 F 64 18 138/79 H 98 02/13/19 11:03 02/13/19 11:03 02/13/19 11:03 02/13/19 11:03 02/13/19 11:03 Intake & Output 02/12/19 02/13/19 02/14/19 06:59 06:59 06:59 Intake Total 1564 944 Output Total 300 550 300 Balance -300 1014 644 Weight 118.4 kg 117.3 kg General appearance: PRESENT: no acute distress, obese Head exam: PRESENT: atraumatic, normocephalic Eye exam: PRESENT: conjunctiva pink, EOMI, PERRLA. ABSENT: scleral icterus Ear exam: PRESENT: normal external ear exam Mouth exam: PRESENT: moist, tongue midline Neck exam: ABSENT: carotid bruit, JVD, lymphadenopathy, thyromegaly Respiratory exam: PRESENT: clear to auscultation sandra. ABSENT: rales, rhonchi, wheezes Cardiovascular exam: PRESENT: RRR. ABSENT: diastolic murmur, rubs, systolic murmur Pulses: PRESENT: normal dorsalis pedis pul Vascular exam: PRESENT: normal capillary refill GI/Abdominal exam: PRESENT: normal bowel sounds, soft. ABSENT: distended, guarding, mass, organolmegaly, rebound, tenderness Rectal exam: PRESENT: deferred Extremities exam: PRESENT: full ROM. ABSENT: calf tenderness, clubbing, pedal edema Neurological exam: PRESENT: alert, awake, oriented to person, oriented to place, oriented to time, oriented to situation Psychiatric exam: PRESENT: appropriate affect, normal mood Skin exam: PRESENT: dry, intact, warm. ABSENT: cyanosis, rash Results Laboratory Results: 02/13/19 03:53 02/13/19 03:53 02/13/19 02/13/19 02/13/19 03:53 03:53 06:13 WBC 7.1 RBC 4.30 L Hgb 12.0 L Hct 36.3 L MCV 84 MCH 27.8 MCHC 33.0 RDW 14.9 H Plt Count 254 Seg Neutrophils % 58.9 Lymphocytes % 26.8 Monocytes % 10.5 Eosinophils % 2.7 Basophils % 1.1 Absolute Neutrophils 4.2 Absolute Lymphocytes 1.9 Absolute Monocytes 0.8 Absolute Eosinophils 0.2 Absolute Basophils 0.1 Sodium 141.9 Potassium 3.9 Chloride 106 Carbon Dioxide 26 Anion Gap 10 BUN 15 Creatinine 1.36 H Est GFR ( Amer) > 60 Est GFR (Non-Af Amer) 56 L Glucose 97 Calcium 8.9 Urine Color YELLOW Urine Appearance SLIGHTLY-CLOUDY Urine pH 5.0 Ur Specific [place] 1.025 Urine Protein NEGATIVE Urine Glucose (UA) NEGATIVE Urine Ketones NEGATIVE Urine Blood NEGATIVE Urine Nitrite NEGATIVE Ur Leukocyte Esterase NEGATIVE Urine WBC (Auto) 1 02/12/19 02/12/19 02/12/19 02:40 02:40 02:40 Creatine Kinase 483 H CK-MB (CK-2) Troponin I 0.167 NT-Pro-B Natriuret Pep 811 H 02/12/19 02/12/19 02/12/19 02:40 10:10 10:10 Creatine Kinase 338 H CK-MB (CK-2) 3.52 5.09 H Troponin I Cancelled 0.559 NT-Pro-B Natriuret Pep 02/12/19 02/12/19 02/12/19 16:14 16:14 22:05 Creatine Kinase 274 H CK-MB (CK-2) 4.32 Troponin I 0.633 0.529 NT-Pro-B Natriuret Pep 02/13/19 02/13/19 03:53 10:00 Creatine Kinase CK-MB (CK-2) Troponin I 0.403 0.290 NT-Pro-B Natriuret Pep Impressions: Chest X-Ray 02/12/19 02:38 IMPRESSION: No acute cardiopulmonary findings. Status: Imported from PACS Assessment and Plan - Diagnosis (1) Hypertensive emergency Is this a current diagnosis for this admission?: Yes Plan: Resolved. BP now WNL Secondary to anti-HTN medication noncompliance and cocaine use. Treated with Cardene gtt in ED, transitioned to PO clonidine, amlodipine, lisinopril. PRN IV hydralazine for SBP > 170. Avoid beta prema use in cocaine induced HTN. (2) Acute renal failure Qualifiers: Acute renal failure type: unspecified Qualified Code(s): N17.9 - Acute kidney failure, unspecified Is this a current diagnosis for this admission?: Yes Plan: Secondary to HTN Now controlled with JHON-I, CCB, Alpha agonist (3) Cocaine abuse Is this a current diagnosis for this admission?: Yes Plan: Patient admits to history of cocaine use Utox positive for cocaine Extensive counseling regarding the use of cocaine and its association with CHF. Encouraged the patient to stop using illicit drugs. (4) Non compliance with medical treatment Is this a current diagnosis for this admission?: Yes Plan: Patient is without health insurance. Will likely require follow[facility]up at [facility] (5) Obesity (BMI 30-39.9) Is this a current diagnosis for this admission?: Yes Plan: Patient is obese, which adds to his heart disease risk factors. Continue cardiac diet Weight management via diet control only at this time - Time Time Spent with patient: 15-24 minutes Medications reviewed and adjusted accordingly: Yes Anticipated discharge: Home Within: within 24 hours - Inpatient Certification Based on my medical assessment, after consideration of the patient's comorbidi ties, presenting symptoms, or acuity I expect that the services needed warrant INPATIENT care.: Yes I certify that my determination is in accordance with my understanding of Kami siegel's requirements for reasonable and necessary INPATIENT services [42 CFR 412.3e].: Yes Medical Necessity: Need Close Monitoring Due to Risk of Patient Decompensation, Need For Continuous Telemetry Monitoring, Risk of Complication if Not Cared For in Hospital
--- NOTE | 2019-02-13 23:45 | EKG REPORT ---
SEVERITY:- ABNORMAL ECG - SINUS RHYTHM PROBABLE LVH WITH SECONDARY REPOL ABNRM PROLONGED QT INTERVAL : Confirmed by: Oanh Poe MD 13-Feb-2019 23:45:03
[2019-02-14] MEDS: CLONIDINE HCL 0.2 MG TABLET PO SCH ×4 (00:21→17:41)
[2019-02-14] MEDS: LISINOPRIL 10 MG TABLET PO SCH ×2 (09:31→21:34)
[2019-02-14] MEDS: FAMOTIDINE 20 MG TABLET PO SCH ×2 (09:31→21:34)
[2019-02-14] MEDS: AMLODIPINE BESYLATE 10 MG TABLET PO SCH (09:31)
[2019-02-14] MEDS: ENOXAPARIN SODIUM INJ 120 MG/0.8 ML DISP.SYRIN SUBCUT SCH ×2 (09:32→21:33)
[2019-02-14 15:00] LABS: ANION GAP 7 (5-19); BLOOD UREA NITROGEN 15 mg/dL (7-20); CALCIUM 8.8 mg/dL (8.4-10.2); CARBON DIOXIDE 29 mmol/L (22-30); CHLORIDE 106 mmol/L (98-107); GLUCOSE 114 mg/dL (75-110); SODIUM 141.9 mmol/L (137-145)
--- NOTE | 2019-02-14 16:28 | RADIOLOGY REPORT (SQ) ---
EXAM DESCRIPTION: CHEST 2 VIEWS COMPLETED DATE/TIME: 02/14/2019 4:20 pm REASON FOR STUDY: SOB (ALSO FOR NM VQ) COMPARISON: 02/12/2019. EXAM PARAMETERS: NUMBER OF VIEWS: two views TECHNIQUE: Digital Frontal and Lateral radiographic views of the chest acquired. RADIATION DOSE: NA LIMITATIONS: none FINDINGS: LUNGS AND PLEURA: No opacities, masses or pneumothorax. No pleural effusion. MEDIASTINUM AND HILAR STRUCTURES: No masses or contour abnormalities. HEART AND VASCULAR STRUCTURES: Heart upper limits of normal size. No evidence for failure. BONES: No acute findings. HARDWARE: None in the chest. OTHER: No other significant finding. IMPRESSION: NO ACUTE RADIOGRAPHIC FINDING IN THE CHEST. TECHNICAL DOCUMENTATION: JOB ID: [id number] [email or web address]- All Rights Reserved Reading location - IP/workstation name: [email or web address]
--- NOTE | 2019-02-14 17:06 | RADIOLOGY REPORT (SQ) ---
EXAM DESCRIPTION: NM LUNG VENT/PERF SCAN COMPLETED DATE/TIME: 02/14/2019 4:46 pm REASON FOR STUDY: sob COMPARISON: 04/28/2016. RADIONUCLIDE AND DOSE: 5.23 millicuries TC-99m MAA Intravenous 31.6 millicuries TC-99m DTPA Inhaled aerosol TECHNIQUE: Two views of the lungs acquired post ventilation of DTPA aerosol. Eight views of the cameron gs acquired following injection of MAA. LIMITATIONS: None. FINDINGS: VENTILATION: Symmetric and homogeneous distribution of DTPA aerosol during ventilatory pha se. No significant areas of photopenia. PERFUSION: Perfusion images with normal homogenous activity and no wedge-shaped or segmental defects. No ventilation-perfusion mismatches. OTHER: No other significant finding. IMPRESSION: NORMAL VENTILATION-PERFUSION LUNG SCAN. NEGATIVE FOR PULMONARY EMBOLI. TECHNICAL DOCUMENTATION: JOB ID: [id number] [email or web address]- All Rights Reserved Reading location - IP/workstation name: [email or web address]
--- NOTE | 2019-02-14 19:12 | Progress Note ---
Provider Note Provider Note: CARDIOLOGY PROGRESS NOTE by Dr. Oanh Howe on 02/14/2019. SUBJECTIVE: The patient denies any chest pain or discomfort. To me the patient denies any shortness of breath. There is no palpitations. There is no PND orthopnea. But after that infusion the patient did complain of shortness of breath on walking to the bathroom. Hence the patient had a VQ scan which is negative for pulmonary emboli. His troponin was trended down. The patient promises not to use substance such as cocaine or alcohol. There is no arrhythmia seen on the monitor. There is no TIA CVA symptoms. PHYSICAL EXAMINATION: The patient is moderate to morbidly obese. In no acute distress. He is well-groomed. Selected Entries 02/14/19 12:18 Temperature 98.0 F Temperature Oral Source Pulse Rate 64 Respiratory 18 Rate Blood Pressure 153/92 H Blood Pressure 112 Mean BP Location Right Arm BP Position Supine O2 Sat by Pulse 98 Oximetry Oxygen Delivery Room Air Method HEAD: Is atraumatic. Normocephalic. EYES: Pupils equal round regular reactive light accommodation. There is no conjunctival pallor there is no scleral icterus. ENT: Is negative for any acute process. SKIN: Is negative for skin rashes or skin lesions. There is no petechia or ecchymosis. NECK: Is supple. There is no JVD. Carotids are equal there is no bruits. There is no lymphadenopathy. There is no accessory muscles of respiration use. There is no goiter. Trachea is central. LUNGS: Is clear to auscultation percussion without any rhonchi rales or wheezing. On palpation there is no chest wall tenderness. HEART: S1-S2 is heard. There is no S4 gallop present. There is no S3 gallop. There is no rub. There is systolic murmur left sternal border and the apex. ABDOMEN: Is is obese. There is no hepatospleno megaly. Bowel sounds are well heard. EXTREMITIES femorals are deep. Femorals are diminished. Leg pulses of well felt. There is no pedal edema. There is no DVT or cellulitis. There is no calf tenderness. There is no cyanosis or clubbing. Capillary refill is normal. HVAC MECHANIC: The patient is conscious awake alert oriented x3 with no focal deficits. PSYCHIATRIC: The patient judgment insight are intact his affect is normal. 02/13/19 02/14/19 10:00 14:25 Sodium 141.9 Potassium 4.0 Chloride 106 Carbon Dioxide 29 Anion Gap 7 BUN 15 Creatinine 1.49 H Est GFR ( Amer) > 60 Glucose 114 H Calcium 8.8 Troponin I 0.290 IMPRESSION/RECOMMENDATION: 1. Elevated troponin I secondary to hypertensive crisis and the patient's substance abuse. The patient's echo shows preserved left ventricle ejection fraction with severe concentric LVH and diastolic dysfunction. This is a type II supply demand mismatch OR and not a non-ST relation OR. In spite of this ischemia cannot be entirely excluded given the patient's hypertension patient's age. Hence would recommend an outpatient IV Lexiscan Cardiolite oral treadmill stress Cardiolite to assess for underlying ischemia/coronary artery disease. This has been discussed with the patient in detail. 2. Dyspnea on exertion: Most likely secondary to the patient's severe concentric LVH and LV diastolic dysfunction. There is no evidence of pulmonary emboli by ventilation/perfusion scan need for aggressive control of the patient's blood pressure discussed with the patient. The patient has promised to avoid any use of substances such as cocaine. 3. Hypertensive emergency on admission. At present blood pressure is much improved, but still not optimal. Will increase the patient's antihypertensives. The importance of taking blood pressure medication has been discussed with pat fatount detail. In view of the patient's recent cocaine usage would recommend not to use beta-blockers at this time. 4. History of congestive heart failure: Most likely secondary to severe hypertension in the patient with severe LVH and LV diastolic dysfunction. No evidence of systolic heart failure. At present examination does not show acute CHF. 5. History of acute renal failure on admission: At present GFR improved. Agree with having gotten a lung VQ scan instead of a CT of the chest. 6. Substance abuse: Patient counseled to stop using cocaine and ill effects of cocaine apparent discussed with the patient detail. MEDICATIONS reviewed management plan discussed with the attending physician on the case. Medication dose increased by me 40 minutes prior to placement of the patient more than 50% of time spent in direct patient care. At present medical decision making is of moderate complexity. The patient is asked to follow-up with me in the office contact numbers given. The patient is a full code. His mother Ms. Farnaz Castillo, is his surrogate healthcare decision maker. Will sign off.
[2019-02-14] MEDS ORDERED: ONDANSETRON 4 MG TAB.RAPDIS PO PRN (21:30)
--- NOTE | 2019-02-14 21:37 | PDOC PROGRESS REPORT ---
Subjective Progress Note for:: 02/14/19 Subjective:: 48 y.o. M with a PMH of hypertension, CHF, stage II chronic kidney disease, regular crack cocaine use presented to [facility] with chest pain. Admitted to hospitalist service for hypertensive emergency with BP 207/153 and creatinine 1.64. EKG shows evidence of LVH and T wave inversion in lateral leads. CXR demonstrates cardiomegaly and pulmonary vascular congestion. Echocardiogram shows severe concentric LVH with diastolic dysfunction and preserved LVEF. The patient was seen on rounds. Was planning to discharge today but the patient reports nausea and SOB with exertion. Vital signs are all stable but will obtain VQ scan to evaluate for PE. Clinical exam is relatively benign, no significant findings. Likely discharge home in 24 hours. Reason For Visit: HYPERTENSIVE EMERGENCY, COCAINE CHEST PAIN,ARF Physical Exam Vital Signs: Temp Pulse Resp BP Pulse Ox 97.4 F 67 16 150/97 H 98 02/14/19 19:55 02/14/19 19:55 02/14/19 19:55 02/14/19 19:55 02/14/19 19:55 Intake & Output 02/13/19 02/14/19 02/15/19 06:59 06:59 06:59 Intake Total 1564 1300 1325 Output Total 550 1000 Balance 1138 425 4202 Weight 117.3 kg 120.9 kg General appearance: PRESENT: no acute distress, well-developed, well-nourished Head exam: PRESENT: atraumatic, normocephalic Eye exam: PRESENT: conjunctiva pink, EOMI, PERRLA. ABSENT: scleral icterus Ear exam: PRESENT: normal external ear exam Mouth exam: PRESENT: moist, tongue midline Neck exam: ABSENT: carotid bruit, JVD, lymphadenopathy, thyromegaly Respiratory exam: PRESENT: clear to auscultation sandra. ABSENT: rales, rhonchi, wheezes Cardiovascular exam: PRESENT: RRR. ABSENT: diastolic murmur, rubs, systolic murmur Pulses: PRESENT: normal radial pulses, normal dorsalis pedis pul Vascular exam: PRESENT: normal capillary refill GI/Abdominal exam: PRESENT: normal bowel sounds, soft. ABSENT: distended, guarding, mass, organolmegaly, rebound, tenderness Rectal exam: PRESENT: deferred Extremities exam: PRESENT: full ROM. ABSENT: calf tenderness, clubbing, pedal edema Musculoskeletal exam: PRESENT: ambulatory, full ROM Neurological exam: PRESENT: alert, awake, oriented to person, oriented to place, oriented to time, oriented to situation Psychiatric exam: PRESENT: appropriate affect, normal mood Skin exam: PRESENT: dry, intact, warm. ABSENT: cyanosis, rash Results Laboratory Results: 02/13/19 03:53 02/14/19 14:25 02/14/19 14:25 Sodium 141.9 Potassium 4.0 Chloride 106 Carbon Dioxide 29 Anion Gap 7 BUN 15 Creatinine 1.49 H Est GFR ( Amer) > 60 Est GFR (Non-Af Amer) 50 L Glucose 114 H Calcium 8.8 02/12/19 02/12/19 02/12/19 02:40 02:40 02:40 Creatine Kinase 483 H CK-MB (CK-2) Troponin I 0.167 NT-Pro-B Natriuret Pep 811 H 02/12/19 02/12/19 02/12/19 02:40 10:10 10:10 Creatine Kinase 338 H CK-MB (CK-2) 3.52 5.09 H Troponin I Cancelled 0.559 NT-Pro-B Natriuret Pep 02/12/19 02/12/19 02/12/19 16:14 16:14 22:05 Creatine Kinase 274 H CK-MB (CK-2) 4.32 Troponin I 0.633 0.529 NT-Pro-B Natriuret Pep 02/13/19 02/13/19 03:53 10:00 Creatine Kinase CK-MB (CK-2) Troponin I 0.403 0.290 NT-Pro-B Natriuret Pep Impressions: Chest X-Ray 02/14/19 00:00 IMPRESSION: NO ACUTE RADIOGRAPHIC FINDING IN THE CHEST. Lung Scan-VQ NM 02/14/19 00:00 IMPRESSION: NORMAL VENTILATION-PERFUSION LUNG SCAN. NEGATIVE FOR PULMONARY EMBOLI. Status: Imported from PACS Assessment and Plan - Diagnosis (1) Hypertensive emergency Is this a current diagnosis for this admission?: Yes Plan: Resolved. BP now WNL Secondary to anti-HTN medication noncompliance and cocaine use. Treated with Cardene gtt in ED, transitioned to PO clonidine, amlodipine, lisinopril. PRN IV hydralazine for SBP > 170. Avoid beta prema use in cocaine induced HTN. (2) Acute renal failure Qualifiers: Acute renal failure type: unspecified Qualified Code(s): N17.9 - Acute kidney failure, unspecified Is this a current diagnosis for this admission?: Yes Plan: Secondary to HTN Now controlled with JHON-I, CCB, Alpha agonist (3) Cocaine abuse Is this a current diagnosis for this admission?: Yes Plan: Patient admits to history of cocaine use Utox positive for cocaine Extensive counseling regarding the use of cocaine and its association with CHF. Encouraged the patient to stop using illicit drugs. (4) Non compliance with medical treatment Is this a current diagnosis for this admission?: Yes Plan: Patient is without health insurance. Will likely require follow-up at the [facility] (5) Obesity (BMI 30-39.9) Is this a current diagnosis for this admission?: Yes Plan: Patient is obese, which adds to his heart disease risk factors. Continue cardiac diet Weight management via diet control only at this time (6) Dyspnea Qualifiers: Dyspnea type: dyspnea on exertion Qualified Code(s): R06.09 - Other forms of dyspnea Is this a current diagnosis for this admission?: Yes Plan: On exertion Possibly related to CHF or maybe PE Plan to obtain VQ scan to evaluate for PE (7) Elevated troponin Is this a current diagnosis for this admission?: Yes Plan: Secondary to hypertensive crisis and the patient's substance abuse. Echo shows preserved left ventricle ejection fraction with severe concentric LVH and diastolic dysfunction. According to Dr. Lu, this is a type II supply demand mismatch ND and not a non-ST relation ND. Dr Lu recommends an outpatient IV Lexiscan Cardiolite oral treadmill stress Cardiolite to assess for underlying ischemia/coronary artery disease. - Time Time Spent with patient: 15-24 minutes Medications reviewed and adjusted accordingly: Yes Anticipated discharge: Home Within: within 24 hours - Inpatient Certification Based on my medical assessment, after consideration of the patient's comorbidities, presenting symptoms, or acuity I expect that the services needed warrant INPATIENT care.: Yes I certify that my determination is in accordance with my understanding of Medicare's requirements for reasonable and necessary INPATIENT services [42 CFR 412.3e].: Yes Medical Necessity: Risk of Complication if Not Cared For in Hospital
[2019-02-15] MEDS: CLONIDINE HCL 0.2 MG TABLET PO SCH ×2 (01:33→06:18)
[2019-02-15] MEDS: FAMOTIDINE 20 MG TABLET PO SCH (09:04)
[2019-02-15] MEDS: AMLODIPINE BESYLATE 10 MG TABLET PO SCH (09:05)
[2019-02-15] MEDS: LISINOPRIL 10 MG TABLET PO SCH (09:05)
[2019-02-15] MEDS: ENOXAPARIN SODIUM INJ 120 MG/0.8 ML DISP.SYRIN SUBCUT SCH (09:08)
[2019-02-15 12:42] VITALS: BP 144/102
[2019-02-15] MEDS ORDERED: CLONIDINE HCL 0.2 MG TABLET PO SCH (14:00)
--- NOTE | 2019-02-24 09:23 | PDOC DISCHARGE SUMMARY ---
General - Admit/Disc Date/PCP Admission Date/Primary Care Provider: 02/12/19 05:19 Discharge Date: 02/15/19 - Discharge Diagnosis (1) Hypertensive emergency Is this a current diagnosis for this admission?: Yes (2) Acute renal failure Is this a current diagnosis for this admission?: Yes (3) Cocaine abuse Is this a current diagnosis for this admission?: Yes (4) Non compliance with medical treatment Is this a current diagnosis for this admission?: Yes (5) Obesity (BMI 30-39.9) Is this a current diagnosis for this admission?: Yes (6) Dyspnea Is this a current diagnosis for this admission?: Yes (7) Elevated troponin Is this a current diagnosis for this admission?: Yes - Additional Information Resuscitation Status: Full Code Discharge Diet: Cardiac Discharge Activity: Activity As Tolerated, Weigh Daily Prescriptions: Amlodipine Besylate [Norvasc 10 mg Tablet] 10 mg PO DAILY #30 tablet Clonidine HCl [Catapres 0.2 mg Tablet] 0.2 mg PO Q6 #160 tablet Clonidine HCl [Catapres 0.2 mg Tablet] 0.3 mg PO Q8 #90 tablet Lisinopril [Prinivil 10 mg Tablet] 20 mg PO DAILY #30 tablet Lisinopril [Prinivil 10 mg Tablet] 20 mg PO Q12 #60 tablet Ondansetron [Zofran Odt 4 mg Tablet] 4 mg PO Q8HP PRN #15 tab.rapdis PRN Reason: Home Medications: Amlodipine Besylate [Norvasc 10 mg Tablet] 10 mg PO DAILY #30 tablet 02/14/19 Clonidine HCl [Catapres 0.2 mg Tablet] 0.2 mg PO Q6 #160 tablet 02/14/19 Lisinopril [Prinivil 10 mg Tablet] 20 mg PO DAILY #30 tablet 02/14/19 Clonidine HCl [Catapres 0.2 mg Tablet] 0.3 mg PO Q8 #90 tablet 02/15/19 Lisinopril [Prinivil 10 mg Tablet] 20 mg PO Q12 #60 tablet 02/15/19 Ondansetron [Zofran Odt 4 mg Tablet] 4 mg PO Q8HP PRN #15 tab.rapdis 02/15/19 History of Present Illness History of Present Illness: ANTHONY AMBRIZ is a 48 year old male with a past medical history of hypertension, stage II chronic kidney disease, regular crack cocaine use with a blood pressure of 240/120, tachypnea, complaining of shortness of breath and ch est pain. Use and medication noncompliance. He receives nicardipine referred to the hospitalist for admission. Patient is currently pain-free Hospital Course Hospital Course: 48 y.o. M with a PMH of hypertension, CHF, stage II chronic kidney disease, re gular crack cocaine use presented to [facility] with chest pain. Admitted to hospitalist service for hypertensive emergency with BP 207/153 and creatinine 1.64. EKG shows evidence of LVH and T wave inversion in lateral leads. CXR demonstrates cardiomegaly and pulmonary vascular congestion. Troponin peaked at 0.633. According to Dr. Lu, this is a type II supply demand mismatch NM and not a non-ST relation NM. Echocardiogram shows severe concentric LVH with diastolic dysfunction and preserved LVEF. The patient was initially treated with a nicardipine gtt in the ED, transitioned to PO clonidine, amlodipine, lisinopril. The patient continued to complain of shortness of breath, a VQ scan was done to evaluate for PE, the results were negative. The patient was treated with supportive care (supplemental O2, inhalers, pain medication, etc). On hospital day #3 the patient was deemed safe for discharge. He was sent home with prescriptions for his anti-HTN medications and a follow up appointment at the [facility]. Dr Lu recommends an outpatient IV Lexiscan Cardiolite oral treadmill stress Cardiolite to assess for underlying ischemia/coronary artery disease. Physical Exam Vital Signs: Temp Pulse Resp BP Pulse Ox 97.7 F 59 L 16 170/94 H 97 02/15/19 08:42 02/15/19 08:42 02/15/19 08:42 02/15/19 08:42 02/15/19 08:42 Intake & Output 02/14/19 02/15/19 02/16/19 06:59 06:59 06:59 Intake Total 1300 1325 Output Total 1000 275 Balance 300 1050 Weight 120.9 kg 118.9 kg General appearance: PRESENT: no acute distress, well-developed, well-nourished Head exam: PRESENT: atraumatic, normocephalic Eye exam: PRESENT: conjunctiva pink, EOMI, PERRLA. ABSENT: scleral icterus Ear exam: PRESENT: normal external ear exam Mouth exam: PRESENT: moist, tongue midline Neck exam: ABSENT: carotid bruit, JVD, lymphadenopathy, thyromegaly Respiratory exam: PRESENT: clear to auscultation sandra, symmetrical, unlabored. ABSENT: rales, rhonchi, wheezes Cardiovascular exam: PRESENT: RRR, systolic murmur. ABSENT: diastolic murmur, rubs Pulses: PRESENT: normal radial pulses, normal dorsalis pedis pul Vascular exam: PRESENT: normal capillary refill GI/Abdominal exam: PRESENT: normal bowel sounds, soft. ABSENT: distended, guarding, mass, organolmegaly, rebound, tenderness Rectal exam: PRESENT: deferred Extremities exam: PRESENT: full ROM. ABSENT: calf tenderness, clubbing, pedal edema Neurological exam: PRESENT: alert, awake, oriented to person, oriented to place, oriented to time, oriented to situation Psychiatric exam: PRESENT: appropriate affect, normal mood Skin exam: PRESENT: dry, intact, warm. ABSENT: cyanosis, rash Results Laboratory Results: 02/13/19 03:53 02/14/19 14:25 02/14/19 14:25 Sodium 141.9 Potassium 4.0 Chloride 106 Carbon Dioxide 29 Anion Gap 7 BUN 15 Creatinine 1.49 H Est GFR ( Amer) > 60 Est GFR (Non-Af Amer) 50 L Glucose 114 H Calcium 8.8 02/12/19 02/12/19 02/12/19 02:40 02:40 02:40 Creatine Kinase 483 H CK-MB (CK-2) Troponin I 0.167 NT-Pro-B Natriuret Pep 811 H 02/12/19 02/12/19 02/12/19 02:40 10:10 10:10 Creatine Kinase 338 H CK-MB (CK-2) 3.52 5.09 H Troponin I Cancelled 0.559 NT-Pro-B Natriuret Pep 02/12/19 02/12/19 02/12/19 16:14 16:14 22:05 Creatine Kinase 274 H CK-MB (CK-2) 4.32 Troponin I 0.633 0.529 NT-Pro-B Natriuret Pep 02/13/19 02/13/19 03:53 10:00 Creatine Kinase CK-MB (CK-2) Troponin I 0.403 0.290 NT-Pro-B Natriuret Pep Impressions: Chest X-Ray 02/14/19 00:00 IMPRESSION: NO ACUTE RADIOGRAPHIC FINDING IN THE CHEST. Lung Scan-VQ NM 02/14/19 00:00 IMPRESSION: NORMAL VENTILATION-PERFUSION LUNG SCAN. NEGATIVE FOR PULMONARY EMBOLI. Status: Imported from PACS Qualifiers - * PATIENT BEING DISCHARGED WITH ANY OF THE FOLLOWING DIAGNOSIS: No Acute Heart Failure Is this a Heart Failure Patient?: Yes Documentation of LVEF assessment?: Yes
== END 2019-02-15 15:13 | disposition home or self-care (01) | DRG 281 ==
LOC: ER 02:24 → EH 05:19 → 3W 08:09
PROVIDERS: ADMIT Internal Medicine; ATTEND Internal Medicine
DX: I21.A1 Myocardial infarction type 2 (principal); I16.1 Hypertensive emergency; N17.9 Acute kidney failure, unspecified; I50.30 Unspecified diastolic (congestive) heart failure; I13.0 Hypertensive heart and chronic kidney disease with heart failure and stage 1 through stage 4 chronic kidney disease, or unspecified chronic kidney disease; E66.01 Morbid (severe) obesity due to excess calories; N18.2 Chronic kidney disease, stage 2 (mild); F32.9 Major depressive disorder, single episode, unspecified; F14.10 Cocaine abuse, uncomplicated; F17.210 Nicotine dependence, cigarettes, uncomplicated; F12.10 Cannabis abuse, uncomplicated; I44.0 Atrioventricular block, first degree; Z91.19 Patient's noncompliance with other medical treatment and regimen; Z68.39 Body mass index [BMI] 39.0-39.9, adult; Z91.030 Bee allergy status; Z71.6 Tobacco abuse counseling; Z71.51 Drug abuse counseling and surveillance of drug abuser; Z91.14 Patient's other noncompliance with medication regimen; Z82.49 Family history of ischemic heart disease and other diseases of the circulatory system
CPT/HCPCS: 36415; 71045; 71046; 78582; 80048; 80053; 80307; 81001; 82550; 82553; 83735; 83880; 84484; 85025; 93005; 93010; 93306; 96374; 99291; A9540; A9567; J0360; J1644; J1650; J2270; J3360; J3490; Q9969

== ENCOUNTER 2019-05-07 16:59 | Emergency (ER) | payer SELFPAY ==
--- NOTE | 2019-05-07 17:28 | ER Document Report ---
ED Medical Screen (RME) - General Chief Complaint: Medical Complaint Stated Complaint: WITHDRAWAL Time Seen by Provider: 05/07/19 17:14 Mode of Arrival: Ambulatory Information source: Patient Notes: This 48-year-old male presents emergency department for medical clearance for [facility]. He reports he went there today to be treated for his crack abuse. Patient reports he last used crack at oh 6:00 this morning. Patient reports he has a history of a heart attack 10 weeks ago which was treated here at [facility]. Also has a history of high blood pressure. So they sent him over here. Patient reports he is feeling very tired with depressed denies suicidal ideations. No other complaints such as fever vomiting diarrhea. I have greeted and performed a rapid initial assessment of this patient. A comprehensive ED assessment and evaluation of the patient, analysis of test results and completion of the medical decision making process will be conducted by additional ED providers. Dictation of this chart was performed using voice recognition software; therefore, there may be some unintended grammatical errors. TRAVEL OUTSIDE OF THE [place] IN LAST 30 DAYS: No - Related Data Allergies/Adverse Reactions: No Known Drug Allergies Allergy (Verified 05/07/19 17:00) bees Allergy (Severe, Uncoded 05/07/19 17:00) Past Medical History - Social History Chew tobacco use (# tins/day): No Frequency of alcohol use: Heavy Drug Abuse: Cocaine, Other Family history: Reviewed & Not Pertinent - Past Medical History Cardiac Medical History: Reports: Hx Congestive Heart Failure, Hx Hypertension Endocrine Medical History: Denies: Hx Diabetes Mellitus Type 1, Hx Diabetes Mellitus Type 2 Renal/ Medical History: Denies: Hx Peritoneal Dialysis Psychiatric Medical History: Reports: Hx Depression Past Surgical History: Reports: Hx Abdominal Surgery - hernia repair, Hx Herniorrhaphy - Immunizations Hx Diphtheria, Pertussis, Tetanus Vaccination: Yes History of Influenza Vaccine for 07/2017 - 12/2017 Season: Unknown Physical Exam - Vital signs Vitals: Temp Pulse Resp BP Pulse Ox 97.9 F 94 18 185/116 H 95 05/07/19 17:03 05/07/19 17:03 05/07/19 17:03 05/07/19 17:03 05/07/19 17:03 Course - Vital Signs Vital signs: Temp Pulse Resp BP Pulse Ox 97.9 F 94 18 185/116 H 95 05/07/19 17:03 05/07/19 17:03 05/07/19 17:03 05/07/19 17:03 05/07/19 17:03
[2019-05-07 18:21] LABS: HEMATOCRIT 43.5 % (37.9-51.0); HEMOGLOBIN 14.5 g/dL (13.5-17.0); MEAN CORPUSCULAR HEMOGLOBIN 28.5 pg (27.0-33.4); MEAN CORPUSCULAR HGB CONC 33.3 g/dL (32.0-36.0); MEAN CORPUSCULAR VOLUME 86 fl (80-97); PLATELET COUNT 373 10^3/uL (150-450); RED BLOOD COUNT 5.08 10^6/uL (4.35-5.55); RED CELL DISTRIBUTION WIDTH 15.3 % (11.5-14.0); WHITE BLOOD COUNT 9.1 10^3/uL (4.0-10.5)
[2019-05-07 18:36] LABS: ALBUMIN 3.9 g/dL (3.5-5.0); ALKALINE PHOSPHATASE 76 U/L (38-126); ANION GAP 7 (5-19); ASPARTATE AMINO TRANSFERASE 27 U/L (17-59); BILIRUBIN,DIRECT 0.2 mg/dL (0.0-0.4); BILIRUBIN,TOTAL 0.6 mg/dL (0.2-1.3); BLOOD UREA NITROGEN 20 mg/dL (7-20); CALCIUM 9.8 mg/dL (8.4-10.2); CARBON DIOXIDE 28 mmol/L (22-30); CHLORIDE 105 mmol/L (98-107); GLUCOSE 138 mg/dL (75-110); TOTAL PROTEIN 7.2 g/dL (6.3-8.2)
[2019-05-07 18:41] LABS: ABSOLUTE LYMPHOCYTES# (MANUAL) 2.1 10^3/uL (0.5-4.7); ABSOLUTE MONOCYTES # (MANUAL) 0.3 10^3/uL (0.1-1.4); BASOPHILS % (MANUAL) 2 % (0-2); EOSINOPHILS % (MANUAL) 0 % (0-6); LYMPHOCYTES % (MANUAL) 23 % (13-45); MONOCYTES % (MANUAL) 3 % (3-13); SEGMENTED NEUTROPHILS % (MAN) 72 % (42-78); TOTAL CELLS COUNTED 100
[2019-05-07 18:42] LABS: ANISOCYTOSIS SLIGHT; PLATELET COMMENT ADEQUATE; POLYCHROMASIA SLIGHT; TOXIC GRANULATION 1+; TOXIC VACUOLATION PRESENT
[2019-05-07 21:08] LABS: APPEARANCE,URINE CLOUDY; BILIRUBIN,URINE NEGATIVE (NEGATIVE); CALCIUM OXALATE CRYSTALS,URINE FEW /HPF; COLOR,URINE YELLOW; GLUCOSE, URINE NEGATIVE (NEGATIVE); KETONES,URINE TRACE mg/dL (NEGATIVE); LEUKOCYTE ESTERASE,URINE NEGATIVE (NEGATIVE); NITRITE,URINE NEGATIVE (NEGATIVE); PROTEIN,URINE 30 mg/dL (NEGATIVE); URINE SPECIFIC GRAVITY 1.031
[2019-05-07 21:30] LABS: URINE AMPHETAMINES SCREEN NEGATIVE; URINE BARBITURATES SCREEN NEGATIVE; URINE BENZODIAZEPINES SCREEN NEGATIVE; URINE COCAINE SCREEN UNCONFIRMED POSITIVE; URINE MARIJUANA (THC) SCREEN NEGATIVE; URINE METHADONE SCREEN NEGATIVE; URINE PHENCYCLIDINE SCREEN NEGATIVE
--- NOTE | 2019-05-08 01:54 | EKG REPORT ---
SEVERITY:- ABNORMAL ECG - SINUS RHYTHM XIAO, CONSIDER BIATRIAL ABNORMALITIES LVH WITH SECONDARY REPOLARIZATION ABNORMALITY ANTERIOR Q WAVES, POSSIBLY DUE TO LVH PROLONGED QT INTERVAL : Confirmed by: Oanh Poe MD 08-May-2019 01:53:33
[2019-05-08] MEDS ORDERED: LISINOPRIL 10 MG TABLET PO ONE (03:44)
[2019-05-08] MEDS ORDERED: AMLODIPINE BESYLATE 10 MG TABLET PO ONE (03:44)
--- NOTE | 2019-05-08 03:56 | ER Document Report ---
ED General - General Chief Complaint: Medical Complaint Stated Complaint: WITHDRAWAL Time Seen by Provider: 05/07/19 17:14 Mode of Arrival: Ambulatory Notes: Patient is a pleasant 48-year-old male who presents with complaint of needing medical clearance for [facility]. [facility] for medical clearance. Patient says he has no symptoms. Says he feels well. He says he uses cocaine on a regular basis and that is why he wants to go to rehab. He does have a long history of poorly controlled hypertension and admits he has not been taking his medications. He supposed to be on clonidine, lisinopril, and amlodipine. He says he has not had these medications for some time now. He denies any current chest pain. No current shortness of breath. No current headache. No abdominal pain. No other complaints at this time. TRAVEL OUTSIDE OF THE [place] IN LAST 30 DAYS: No - Related Data Allergies/Adverse Reactions: No Known Drug Allergies Allergy (Verified 05/07/19 17:00) bees Allergy (Severe, Uncoded 05/07/19 17:00) Past Medical History - General Information source: Patient - Social History Smoking Status: Current Every Day Smoker Chew tobacco use (# tins/day): No Frequency of alcohol use: Heavy Drug Abuse: Cocaine, Other Family History: Reviewed & Not Pertinent, DM, Hypertension, Malignancy Patient has suicidal ideation: No Patient has homicidal ideation: No - Past Medical History Cardiac Medical History: Reports: Hx Congestive Heart Failure, Hx Hypertension Endocrine Medical History: Denies: Hx Diabetes Mellitus Type 1, Hx Diabetes Mellitus Type 2 Renal/ Medical History: Denies: Hx Peritoneal Dialysis Psychiatric Medical History: Reports: Hx Depression Past Surgical History: Reports: Hx Abdominal Surgery - hernia repair, Hx Herniorrhaphy - Immunizations Hx Diphtheria, Pertussis, Tetanus Vaccination: Yes Review of Systems - Review of Systems Notes: My Normal Review Basic REVIEW OF SYSTEMS: CONSTITUTIONAL : Denies fever, chills, or sweats. Denies recent illness. EENT: Denies eye, ear, throat, or mouth pain or symptoms. Denies nasal or sinus congestion. CARDIOVASCULAR: Denies chest pain. RESPIRATORY: Denies cough, cold, or chest congestion. Denies shortness of breath, difficulty breathing, or wheezing. GASTROINTESTINAL: Denies abdominal pain. Denies nausea, vomiting, or diarrhea. MUSCULOSKELETAL: Denies neck or back pain or joint pain or swelling. SKIN: Denies rash or skin lesions. NEUROLOGICAL: Denies altered mental status or loss of consciousness. Denies headache. Denies weakness or paralysis or loss of use of either side. Denies problems with gait or speech. Denies sensory or motor loss. PSYCHIATRIC: Denies anxiety or stress or depression. ALL OTHER SYSTEMS REVIEWED AND NEGATIVE. Physical Exam - Vital signs Vitals: Temp Pulse Resp BP Pulse Ox 97.9 F 94 18 185/116 H 95 05/07/19 17:03 05/07/19 17:03 05/07/19 17:03 05/07/19 17:03 05/07/19 17:03 - Notes Notes: General Appearance: Well nourished, alert, cooperative, no acute distress, no obvious discomfort. Well appearing. Vitals: reviewed, See vital signs table. Head: no swelling or tenderness to the head Eyes: PERRL, EOMI, Conjuctiva clear Mouth: No decreasd moisture Lungs: No wheezing, No rales, No rhonci, No accessory muscle use, good air e xchange bilaterally. Heart: Normal rate, Regular rythm, No murmur, no rub Abdomen: Normal BS, soft, No rigidity, No abdominal tenderness, No guarding, no rebound, no abdominal masses, no organomegaly Extremities: strength 5/5 in all extremities, good pulses in all extremities, no swelling or tenderness in the extremities, no edema. Skin: warm, dry, appropriate color, no rash Neuro: speech clear, oriented x 3, normal affect, responds appropriately to questions. Cranial nerves II through XII are intact. Distal sensation intact. Patient was all extremities without difficulty. Course - Re-evaluation Re-evalutation: 05/08/19 06:14 Patient is currently asymptomatic and well-appearing. He has no complaints at this time. He is here for medical clearance for rehab facility. His labs did not show any concerning findings. He has some chronic mild renal sufficiency which is not worsening. The main thing is that he needs better blood pressure control in the first place him back on his blood pressure medications. I did gi ve him dosages of his blood pressure medications here and his blood pressure is trending down appropriately. I informed him the importance of taking his medications. I informed him not to use cocaine anymore. I encouraged him to follow back up with [facility] for admission to rehab. Patient is medically stable from my standpoint for the rehab facility as long as he continues to take his blood pressure medications. Dictation of this chart was performed using voice recognition software; therefore, there may be some unintended grammatical errors. - Vital Signs Vital signs: Temp Pulse Resp BP Pulse Ox 97.7 F 76 18 173/88 H 98 05/08/19 02:58 05/08/19 02:58 05/08/19 02:58 05/08/19 06:02 05/08/19 02:58 - Laboratory Result Diagrams: 05/07/19 18:00 05/07/19 18:00 Laboratory results interpreted by me: 05/07/19 05/07/19 05/07/19 18:00 18:00 18:00 RDW 15.3 H Creatinine 1.63 H Est GFR ( Amer) 55 L Est GFR (Non-Af Amer) 45 L Glucose 138 H Urine Protein 30 H Urine Ketones TRACE H Urine Urobilinogen 4.0 H - EKG Interpretation by Me Additional EKG results interpreted by me: 05/08/19 03:55 EKG is reviewed and interpreted by me. EKG shows sinus rhythm with a rate of [address] segment elevation. Patient does have some T wave inversions in the lateral precordial leads which are little more pronounced in comparison to his previous EKG from February 13, 2019. LA interval, QRS duration are within normal range. QTc interval is prolonged. Discharge - Discharge Clinical Impression: Cocaine abuse Hypertension Qualifiers: Hypertension type: unspecified Qualified Code(s): I10 - Essential (primary) hypertension Condition: Good Disposition: HOME, SELF-CARE Additional Instructions: We will place you back on your high blood pressure medications. Please get your prescriptions filled today and continue to take them. Your labs did not show any other concerning findings and therefore you are medically stable for evaluation at [facility] as long as you are taking your blood pressure medications. Please avoid any cocaine use. Please return to the ER if you have chest pain, severe headache, vomiting, or feel unwell. Do not take cocaine when taking your blood pressure medications as this can cause a bad interaction. Prescriptions: Amlodipine Besylate [Norvasc 10 mg Tablet] 10 mg PO DAILY #30 tablet Clonidine HCl [Catapres] 0.2 mg PO Q8 #30 tablet Lisinopril 20 mg PO DAILY #30 tablet Forms: Return to Work
[2019-05-08] MEDS ORDERED: CLONIDINE HCL 0.2 MG TABLET PO ONE (05:05)
[2019-05-08 06:28] VITALS: BP 175/88
== END 2019-05-08 06:28 | disposition home or self-care (01) ==
LOC: ER 16:59
DX: F14.10 Cocaine abuse, uncomplicated (principal); I10 Essential (primary) hypertension; Z79.899 Other long term (current) drug therapy
CPT/HCPCS: 36415; 80053; 80307; 81001; 85025; 93005; 93010; 99283

== ENCOUNTER 2019-07-04 11:46 | Inpatient (IN) | payer SELFPAY ==
--- NOTE | 2019-07-04 12:08 | ER Document Report ---
ED Medical Screen (RME) - General Stated Complaint: DIFFICULTY BREATHING Time Seen by Provider: 07/04/19 12:08 TRAVEL OUTSIDE OF THE [place] IN LAST 30 DAYS: No - HPI Notes: 07/04/19 12:09 Patient is a 48-year-old male with a history of hypertension, CHF, stage II chronic kidney disease, regular crack cocaine who presents complaining of swelling to his legs along with feeling short of breath over the past couple days. Last use of cocaine was 3 days ago. Patient states that he was admitted in February for similar symptoms. That visit he was admitted for hypertensive emergency with lab changes. Denies any prolonged immobilization, distance travel, recent surgery/trauma, personal cancer history, hormone use, or previous DVT/PE. Denies LANDA, fever, neck pain, URI, n/v/d, Abd pain, dysuria, back pain, or rash. I have treated and performed a rapid initial assessment of this patient. A comprehensive ED assessment and evaluation of the patient, analysis of test results and completion of medical decision making process will be conducted by additional ED providers. PHYSICAL EXAMINATION: GENERAL: Well-appearing, well-nourished and in no acute distress. A&Ox4. Answers questions appropriately. LUNGS: Breath sounds clear to auscultation bilaterally and equal. No wheezes rales or rhonchi. HEART: Regular rate and rhythm without murmurs, rubs, gallops. Extremities: 1-2+ pitting edema b/l LE's. Sera negative bilaterally. No lower extremity asymmetry. NEUROLOGICAL: Normal speech, normal gait. PSYCH: Normal mood, normal affect. - Related Data Allergies/Adverse Reactions: No Known Drug Allergies Allergy (Verified 05/07/19 17:00) bees Allergy (Severe, Uncoded 05/07/19 17:00) Past Medical History - Social History Family history: Reviewed & Not Pertinent - Past Medical History Cardiac Medical History: Reports: Hx Congestive Heart Failure, Hx Hypertension Endocrine Medical History: Denies: Hx Diabetes Mellitus Type 1, Hx Diabetes Mellitus Type 2 Renal/ Medical History: Denies: Hx Peritoneal Dialysis Psychiatric Medical History: Reports: Hx Depression Past Surgical History: Reports: Hx Abdominal Surgery - hernia repair, Hx Herniorrhaphy - Immunizations Hx Diphtheria, Pertussis, Tetanus Vaccination: Yes History of Influenza Vaccine for 07/2017 - 12/2017 Season: Unknown Physical Exam - Vital signs Vitals: Temp Pulse Resp BP Pulse Ox 97.8 F 84 22 H 221/118 H 97 07/04/19 12:01 07/04/19 12:01 07/04/19 12:01 07/04/19 12:01 07/04/19 12:01 Course - Vital Signs Vital signs: Temp Pulse Resp BP Pulse Ox 97.8 F 84 22 H 221/118 H 97 07/04/19 12:01 07/04/19 12:01 07/04/19 12:01 07/04/19 12:01 07/04/19 12:01
[2019-07-04 12:45] LABS: ABSOLUTE BASOPHILS # (AUTO) 0.1 10^3/uL (0.0-0.2); ABSOLUTE EOSINOPHILS # (AUTO) 0.1 10^3/uL (0.0-0.6); ABSOLUTE LYMPHOCYTES (AUTO) 1.2 10^3/uL (0.5-4.7); ABSOLUTE MONOCYTES (AUTO) 0.6 10^3/uL (0.1-1.4); ABSOLUTE NEUT (AUTO) 6.3 10^3/uL (1.7-8.2); BASOPHILS % (AUTO) 1.5 % (0-2); EOSINOPHILS % (AUTO) 0.9 % (0-6); HEMATOCRIT 39.4 % (37.9-51.0); HEMOGLOBIN 12.8 g/dL (13.5-17.0); LYMPHOCYTES % (AUTO) 14.6 % (13-45); MEAN CORPUSCULAR HEMOGLOBIN 27.7 pg (27.0-33.4); MEAN CORPUSCULAR HGB CONC 32.4 g/dL (32.0-36.0); MEAN CORPUSCULAR VOLUME 85 fl (80-97); MONOCYTES % (AUTO) 7.7 % (3-13); PLATELET COUNT 329 10^3/uL (150-450); RED BLOOD COUNT 4.62 10^6/uL (4.35-5.55); RED CELL DISTRIBUTION WIDTH 15.1 % (11.5-14.0); SEGMENTED NEUTROPHILS % (AUTO) 75.3 % (42-78); TOTAL CELLS COUNTED % (AUTO) 100 %; WHITE BLOOD COUNT 8.3 10^3/uL (4.0-10.5)
--- NOTE | 2019-07-04 12:50 | RADIOLOGY REPORT (SQ) ---
EXAM DESCRIPTION: CHEST 2 VIEWS COMPLETED DATE/TIME: 07/04/2019 12:25 pm REASON FOR STUDY: sob COMPARISON: None. EXAM PARAMETERS: NUMBER OF VIEWS: two views TECHNIQUE: Digital Frontal and Lateral radiographic views of the chest acquired. RADIATION DOSE: NA LIMITATIONS: none FINDINGS: LUNGS AND PLEURA: No opacities, masses or pneumothorax. No pleural effusion. MEDIASTINUM AND HILAR STRUCTURES: No masses or contour abnormalities. HEART AND VASCULAR STRUCTURES: Enlarged cardiac silhouette, stable. Central vascular congestion. No overt edema. BONES: No acute findings. HARDWARE: None in the chest. OTHER: No other significant finding. IMPRESSION: Stable enlarged cardiac silhouette without overt edema. TECHNICAL DOCUMENTATION: JOB ID: [id number] [employer]- All Rights Reserved Reading location - IP/workstation name: [email or web address]
[2019-07-04 13:01] LABS: ALBUMIN 3.7 g/dL (3.5-5.0); ALKALINE PHOSPHATASE 60 U/L (38-126); ANION GAP 10 (5-19); ASPARTATE AMINO TRANSFERASE 30 U/L (17-59); BILIRUBIN,DIRECT 0.2 mg/dL (0.0-0.4); BILIRUBIN,TOTAL 0.6 mg/dL (0.2-1.3); BLOOD UREA NITROGEN 15 mg/dL (7-20); CALCIUM 8.9 mg/dL (8.4-10.2); CARBON DIOXIDE 26 mmol/L (22-30); CHLORIDE 105 mmol/L (98-107); GLUCOSE 150 mg/dL (75-110); POTASSIUM 3.3 mmol/L (3.6-5.0); TOTAL PROTEIN 6.9 g/dL (6.3-8.2)
[2019-07-04 13:22] LABS: TROPONIN I 0.061 ng/mL
[2019-07-04] MEDS ORDERED: ASPIRIN 325 MG TABLET PO ONE (13:32)
[2019-07-04] MEDS ORDERED: FUROSEMIDE INJ/PF 40 MG/4 ML SDV IV ONE (13:32)
[2019-07-04] MEDS ORDERED: LABETALOL HCL INJ 20 MG/4 ML DISP.SYRIN IV ONE (13:35)
[2019-07-04 13:40] LABS: URINE AMPHETAMINES SCREEN NEGATIVE; URINE BARBITURATES SCREEN NEGATIVE; URINE BENZODIAZEPINES SCREEN NEGATIVE; URINE COCAINE SCREEN UNCONFIRMED POSITIVE; URINE MARIJUANA (THC) SCREEN NEGATIVE; URINE METHADONE SCREEN NEGATIVE; URINE PHENCYCLIDINE SCREEN NEGATIVE
--- NOTE | 2019-07-04 13:41 | ER Document Report ---
ED General - General Chief Complaint: Breathing Difficulty Stated Complaint: DIFFICULTY BREATHING Time Seen by Provider: 07/04/19 12:08 Notes: 48-year-old male presents emergency department complaining of dyspnea on exertion, chest pain on exertion, shortness of breath and increasing swelling in his legs and his abdomen for the past 3 days. Patient states he last used cocaine 3 days ago, stopped taking his Lasix 3 months ago. Has a history of a heart attack 3 months ago that was treated with medications. Denies any stress test or heart catheterization. Denies any current chest pain or chest pain at rest. TRAVEL OUTSIDE OF THE [place] IN LAST 30 DAYS: No - Related Data Allergies/Adverse Reactions: No Known Drug Allergies Allergy (Verified 07/04/19 12:13) bees Allergy (Severe, Uncoded 07/04/19 12:13) Past Medical History - General Information source: Patient, Friend - Social History Smoking Status: Current Every Day Smoker Chew tobacco use (# tins/day): No Frequency of alcohol use: Occasional Drug Abuse: Cocaine - Last used 3 days ago. Family History: DM, Hypertension, Malignancy Patient has suicidal ideation: No Patient has homicidal ideation: No - Past Medical History Cardiac Medical History: Reports: Hx Congestive Heart Failure, Hx Hypertension Endocrine Medical History: Denies: Hx Diabetes Mellitus Type 1, Hx Diabetes Mellitus Type 2 Renal/ Medical History: Denies: Hx Peritoneal Dialysis Psychiatric Medical History: Reports: Hx Depression Past Surgical History: Reports: Hx Abdominal Surgery - hernia repair, Hx Herniorrhaphy - Immunizations Hx Diphtheria, Pertussis, Tetanus Vaccination: Yes Review of Systems - Review of Systems Constitutional: No symptoms reported EENT: No symptoms reported Cardiovascular: See HPI Respiratory: See HPI Gastrointestinal: See HPI, Abdomen distended Musculoskeletal: See HPI, Leg swelling, Ankle swelling -: Yes All other systems reviewed and negative Physical Exam - Vital signs Vitals: Temp Pulse Resp BP Pulse Ox 97.8 F 84 22 H 221/118 H 97 07/04/19 12:01 07/04/19 12:01 07/04/19 12:01 07/04/19 12:01 07/04/19 12:01 Interpretation: Hypertensive - Notes Notes: GENERAL: Alert, interacts well. No acute distress. HEAD: Normocephalic, atraumatic EYES: Pupils equal, round and reactive to light, extraocular movements intact. ENT: Oral mucosa moist, tongue midline. NECK: Full range of motion, supple, trachea midline. LUNGS: Crackles at the bases, otherwise clear, no wheezing, no respiratory dis tress. HEART: Regular rate and rhythm, no murmurs, gallops, rubs. ABDOMEN: Soft, nontender, nondistended, bowel sounds present in all 4 quadrants. EXTREMITIES: Moves all 4 extremities spontaneously, 3+ pitting edema bilateral lower extremities to the level of the knee, radial and dorsalis pedis pulses 2/4 bilaterally. No cyanosis. NEUROLOGICAL: Alert and oriented x3, normal speech, biceps and patellar DTRs 2+ bilaterally. PSYCH: Normal mood, normal affect. SKIN: Warm, Dry, no rashes or lesions noted. Course - Re-evaluation Re-evalutation: 07/04/19 13:39 CBC shows mild anemia with hemoglobin 12.8, no leukocytosis, CMP shows slight low potassium at 3.3, slightly elevated creatinine at 1.36, elevated glucose of 150, this is nonfasting, troponin is indeterminate at 0.061, proBNP rather elevated at 2020, urine drug screen is still pending. Chest x-ray does not show any fluid. EKG does show some ischemic changes with T wave inversions though he is not having any active chest pain at this point. As patient is still quite hypertensive I am going to give him IV labetalol in addition to IV Lasix to help bring down his blood pressure and diurese him. Discussed the patient with Dr. Paredes who states the patient should have an IMCU bed and that I should discuss the patient with Bessy Burk. Attempted to call her but she did not answer her phone at this time. I will call her again in a few minutes. - Vital Signs Vital signs: Temp Pulse Resp BP Pulse Ox 97.8 F 84 22 H 221/118 H 100 07/04/19 12:01 07/04/19 12:01 07/04/19 12:01 07/04/19 12:07/04/19 13:06 - Laboratory Result Diagrams: 07/04/19 12:27 07/04/19 12:27 Laboratory results interpreted by me: 07/04/19 07/04/19 07/04/19 12:27 12:27 12:27 Hgb 12.8 L RDW 15.1 H Potassium 3.3 L Creatinine 1.36 H Est GFR (MDRD) Non-Af 56 L Glucose 150 H NT-Pro-B Natriuret Pep 2020 H - EKG Interpretation by Me Additional EKG results interpreted by me: 07/04/19 13:41 EKG shows sinus rhythm at a rate of 83, left axis deviation, prolonged QT interval, LVH, T wave inversions noted in V3 through V6, no ST segment elevations or depressions per my interpretation. Discharge - Discharge Clinical Impression: Elevated troponin, Cocaine abuse, Obesity (BMI 30-39.9), Tobacco abuse, Non compliance with medical treatment Congestive heart failure Qualifiers: Heart failure type: unspecified Heart failure chronicity: acute Qualified Code(s): I50.9 - Heart failure, unspecified Chest pain Qualifiers: Chest pain type: precordial pain Qualified Code(s): R07.2 - Precordial pain Disposition: ADMITTED INPATIENT Admitting Provider: Reggie (Hospitalist) Unit Admitted: [facility]
[2019-07-04] MEDS ORDERED: POTASSIUM CHLORIDE 10 MEQ CAPSULE.ER PO ONE (14:33)
[2019-07-04] MEDS ORDERED: MAG HYDROX/AL HYDROX/SIMETH SUSP 30 ML UDCUP PO PRN (15:08)
[2019-07-04] MEDS ORDERED: ONDANSETRON HCL INJ/PF 4 MG/2 ML SDV IV PRN (15:08)
[2019-07-04] MEDS ORDERED: PROMETHAZINE HCL INJ 25 MG/1 ML VIAL IV PRN (15:08)
[2019-07-04] MEDS ORDERED: ACETAMINOPHEN 325 MG TABLET PO PRN (15:08)
[2019-07-04] MEDS ORDERED: ALBUTEROL SULFATE 0.083% NEB 2.5 MG/3 ML AMPUL NEB PRN (15:08)
[2019-07-04] MEDS ORDERED: HYDRALAZINE HCL INJ/PF 20 MG/1 ML SDV IV PRN (15:20)
[2019-07-04] MEDS ORDERED: NITROGLYCERIN 2% OINTMENT 1 GM PACKET TP ONE (15:31)
--- NOTE | 2019-07-04 15:45 | PDOC H&P ---
History of Present Illness Admission Date/PCP: 07/04/19 14:01 Patient complains of: generalized edema, dyspnea on exertion History of Present Illness: ANTHONY AMBRIZ is a 48 year old male with a past medical history of hypertension, NSTEMI, CHF, Severe LVH, CKD 3, regular crack cocaine use, with medication noncompliance who presented emergency department today with a complaint of generalized edema and shortness of breath with minimal activity that has been present for 2 days. He does note that he last used cocaine 3 days ago. The patient was discharged from our facility in February following admission for similar complaints. He does report that he did not follow-up with primary care provider or cardiology as instructed following that discharge. He ran out of his medications once his discharge prescriptions were completed; he has been without medication since early April. Evaluation in the emergency department revealed hypertensive urgency with blood pressure of 229/122, tachypnea, unremarkable CBC, baseline renal function (creatinine 1.36) elevated proBNP 2020, indeterminately elevated troponin 0 0.061 (decreased from previously), and UDS positive for cocaine. EKG demonstrates sinus tachycardia with LVH and inverted T waves. Chest x-ray re veals cardiomegaly without overt pulmonary edema. The patient was provided IV Lopressor by the ED provider and referred to the hospitalist service for admission and management of the above-stated complaints. Past Medical History Cardiac Medical History: Reports: Congestive Heart Failure, Hypertension Denies: Myocardial Infarction Pulmonary Medical History: Reports: None EENT Medical History: Reports: None Neurological Medical History: Denies: Ischemic CVA Endocrine Medical History: Reports: Obesity Denies: Diabetes Mellitus Type 1, Diabetes Mellitus Type 2, Hypothyroidism Renal/ Medical History: Reports: None Malignancy Medical History: Reports: None GI Medical History: Reports: None Musculoskeltal Medical History: Reports: None Skin Medical History: Reports: None Psychiatric Medical History: Reports: Depression Traumatic Medical History: Reports: None Hematology: Reports: None Infectious Medical History: Reports: None Past Surgical History Past Surgical History: Reports: Herniorrhaphy Social History Information Source: Patient Lives with: Friend Smoking Status: Current Every Day Smoker Frequency of Alcohol Use: Social Hx Recreational Drug Use: Yes Drugs: Cocaine Hx Prescription Drug Abuse: No - Advance Directive Resuscitation Status: Full Code Family History Family History: DM, Hypertension, Malignancy Parental Family History Reviewed: Yes Children Family History Reviewed: Yes Sibling(s) Family History Reviewed.: Yes Medication/Allergy Home Medications: No Home Medications 07/04/19 Allergies/Adverse Reactions: No Known Drug Allergies Allergy (Verified 07/04/19 12:13) bees Allergy (Severe, Uncoded 07/04/19 12:13) Review of Systems Constitutional: ABSENT: chills, fever(s), headache(s), weight gain, weight loss Eyes: ABSENT: visual disturbances Ears: ABSENT: hearing changes Cardiovascular: PRESENT: dyspnea on exertion, edema, orthropnea, other - Generalized edema. ABSENT: chest pain, palpitations Respiratory: ABSENT: cough, hemoptysis Gastrointestinal: ABSENT: abdominal pain, constipation, diarrhea, hematemesis, hematochezia, nausea, vomiting Genitourinary: ABSENT: dysuria, hematuria Musculoskeletal: ABSENT: joint swelling Integumentary: ABSENT: rash, wounds Neurological: ABSENT: abnormal gait, abnormal speech, confusion, dizziness, focal weakness, syncope Psychiatric: ABSENT: anxiety, depression, homidical ideation, suicidal ideation Endocrine: ABSENT: cold intolerance, heat intolerance, polydipsia, polyuria Hematologic/Lymphatic: ABSENT: easy bleeding, easy bruising Physical Exam Vital Signs: Temp Pulse Resp BP Pulse Ox 97.8 F 84 17 232/128 H 99 07/04/19 12:01 07/04/19 12:01 07/04/19 14:41 07/04/19 14:41 07/04/19 14:41 Intake & Output 07/03/19 07/04/19 07/05/19 06:59 06:59 06:59 Weight 120.6 kg General appearance: PRESENT: no acute distress, cooperative, morbidly obese, well-developed, well-nourished Head exam: PRESENT: atraumatic, normocephalic Eye exam: PRESENT: conjunctiva pink, EOMI, PERRLA. ABSENT: scleral icterus Ear exam: PRESENT: normal external ear exam Mouth exam: PRESENT: moist, tongue midline Neck exam: ABSENT: carotid bruit, JVD, lymphadenopathy, thyromegaly Respiratory exam: PRESENT: clear to auscultation sandra, symmetrical, unlabored. ABSENT: rales, rhonchi, wheezes Cardiovascular exam: PRESENT: RRR, +S1, +S2. ABSENT: diastolic murmur, rubs, systolic murmur Pulses: PRESENT: normal dorsalis pedis pul Vascular exam: PRESENT: normal capillary refill GI/Abdominal exam: PRESENT: normal bowel sounds, soft, other - Rotund. ABSENT: distended, guarding, mass, organolmegaly, rebound, tenderness Rectal exam: PRESENT: deferred Extremities exam: PRESENT: full ROM, pedal edema - BLE pitting edema, +2 edema. ABSENT: calf tenderness, clubbing Neurological exam: PRESENT: alert, awake, oriented to person, oriented to place, oriented to time, oriented to situation, CN II-XII grossly intact. ABSENT: motor sensory deficit Psychiatric exam: PRESENT: appropriate affect, normal mood. ABSENT: homicidal ideation, suicidal ideation Skin exam: PRESENT: dry, intact, warm. ABSENT: cyanosis, rash Results Laboratory Results: 07/04/19 12:27 07/04/19 12:27 07/04/19 07/04/19 12:27 12:27 WBC 8.3 RBC 4.62 Hgb 12.8 L Hct 39.4 MCV 85 MCH 27.7 MCHC 32.4 RDW 15.1 H Plt Count 329 Seg Neutrophils % 75.3 Sodium 141.4 Potassium 3.3 L Chloride 105 Carbon Dioxide 26 Anion Gap 10 BUN 15 Creatinine 1.36 H Est GFR ( Amer) > 60 Glucose 150 H Calcium 8.9 Total Bilirubin 0.6 AST 30 Alkaline Phosphatase 60 Total Protein 6.9 Albumin 3.7 07/04/19 12:27 Troponin I 0.061 NT-Pro-B Natriuret Pep 2020 H Impressions: Chest X-Ray 07/04/19 12:17 IMPRESSION: Stable enlarged cardiac silhouette without overt edema. Assessment and Plan - Diagnosis (1) Hypertensive emergency Is this a current diagnosis for this admission?: Yes Plan: Secondary to acute on chronic CHF exacerbation, continue cocaine use, and medication/dietary noncompliance. The patient was provided IV Lopressor by the ED provider without much effect. Blood pressures on admission 220/120 with evidence of acute CHF exacerbation. We will resume the outpatient medication regiment patient should have previously been on: Amlodipine 10 mg nightly, clonidine 0.2 mill grams p.o. every 8, lisinopril 20 mg p.o. daily. Avoid beta-prema secondary to recent and continued cocaine use Nitropaste ointment now. IV hydralazine as needed for blood pressure control. Cardiac diet. (2) Congestive heart failure Qualifiers: Heart failure type: diastolic Heart failure chronicity: acute on chronic Qualified Code(s): I50.33 - Acute on chronic diastolic (congestive) heart failure Is this a current diagnosis for this admission?: Yes Plan: Chest x-ray reveals cardiomegaly. proBNP elevated to 2019 We will diurese with IV furosemide 40 mg twice daily. We will resume the outpatient medication regiment the patient was discharged on previously; amlodipine 10 mg nightly, clonidine 0.2 mg p.o. every 8, lisinopril 20 mg daily. Avoiding beta blockers secondary to recent and continued cocaine use Nitropaste now for hypertensive emergency as above. Daily aspirin therapy. Cardiac diet. Daily weights and strict I&O's. Registered dietitian and patient educator consulted. (3) Non compliance with medical treatment Is this a current diagnosis for this admission?: Yes Plan: Medication and diet recommendations reinforced. (4) Obesity (BMI 30-39.9) Is this a current diagnosis for this admission?: Yes Plan: BMI 38.1. Dietary and lifestyle modification are encouraged. Registered dietitian is consulted. (5) Tobacco abuse Is this a current diagnosis for this admission?: Yes Plan: Smoking cessation encouraged. Nicotine replacement therapies provided. (6) Cocaine abuse Is this a current diagnosis for this admission?: Yes Plan: Cessation encouraged. Discharge planning consulted. - Time Time Spent with patient: 35 or more minutes Smoking Cessation Education: 3 to 10 minutes Medications reviewed and adjusted accordingly: Yes Anticipated discharge: Home Within: within 48 hours
[2019-07-04] MEDS: CLONIDINE HCL 0.2 MG TABLET PO SCH ×2 (16:12→21:34)
[2019-07-04] MEDS: LISINOPRIL 10 MG TABLET PO SCH (16:12)
[2019-07-04] MEDS: FAMOTIDINE 20 MG TABLET PO SCH (21:34)
[2019-07-04] MEDS: HEPARIN SOD (PORCINE) 5,000 UNIT/ML 1 ML VIAL SUBCUT SCH (21:34)
[2019-07-04] MEDS: AMLODIPINE BESYLATE 10 MG TABLET PO SCH (21:34)
[2019-07-04] MEDS: FUROSEMIDE INJ/PF 40 MG/4 ML SDV IV SCH (21:34)
--- NOTE | 2019-07-05 00:29 | EKG REPORT ---
SEVERITY:- ABNORMAL ECG - SINUS RHYTHM PROBABLE LEFT ATRIAL ABNORMALITY PROBABLE LVH WITH SECONDARY REPOL ABNRM PROLONGED QT INTERVAL : Confirmed by: Oanh Poe MD 05-Jul-2019 00:28:12
[2019-07-05 04:45] LABS: HEMATOCRIT 37.4 % (37.9-51.0); HEMOGLOBIN 12.2 g/dL (13.5-17.0); MEAN CORPUSCULAR HEMOGLOBIN 27.5 pg (27.0-33.4); MEAN CORPUSCULAR HGB CONC 32.6 g/dL (32.0-36.0); MEAN CORPUSCULAR VOLUME 85 fl (80-97); PLATELET COUNT 327 10^3/uL (150-450); RED BLOOD COUNT 4.43 10^6/uL (4.35-5.55); WHITE BLOOD COUNT 8.5 10^3/uL (4.0-10.5)
[2019-07-05 05:07] LABS: ANION GAP 9 (5-19); BLOOD UREA NITROGEN 17 mg/dL (7-20); CALCIUM 8.8 mg/dL (8.4-10.2); CARBON DIOXIDE 27 mmol/L (22-30); CHLORIDE 104 mmol/L (98-107); CHOLESTEROL 179.51 mg/dL (0-200); GLUCOSE 105 mg/dL (75-110); POTASSIUM 3.7 mmol/L (3.6-5.0); TRIGLYCERIDES 83 mg/dL (<150)
[2019-07-05 05:17] LABS: DIRECT LDL 148 mg/dL (<100)
[2019-07-05] MEDS: CLONIDINE HCL 0.2 MG TABLET PO SCH ×3 (05:43→21:26)
[2019-07-05] MEDS: HEPARIN SOD (PORCINE) 5,000 UNIT/ML 1 ML VIAL SUBCUT SCH ×3 (05:43→21:26)
[2019-07-05] MEDS ORDERED: DEXTROSE 50%-WATER 25 GM/50 ML DISP.SYRIN IV PRN ×2 (07:52)
[2019-07-05] MEDS ORDERED: GLUCAGON,HUMAN RECOMB 1 MG INJ IM PRN (07:52)
[2019-07-05] MEDS ORDERED: DEXTROSE 40% GEL 15 GM TUBE PO PRN ×2 (07:52)
--- NOTE | 2019-07-05 07:54 | PDOC PROGRESS REPORT ---
Subjective Progress Note for:: 07/05/19 Subjective:: 07/05/2019-no complaints this a.m. Reason For Visit: HYPERTENSIVE URGENCY Physical Exam Vital Signs: Temp Pulse Resp BP Pulse Ox 97.7 F 65 22 H 178/110 H 97 07/05/19 04:00 07/05/19 07:00 07/05/19 04:00 07/05/19 04:00 07/05/19 04:00 Intake & Output 07/04/19 07/05/19 07/06/19 06:59 06:59 06:59 Intake Total 700 Output Total 2750 Balance -2049 Weight 118.8 kg General appearance: PRESENT: no acute distress, well-developed, well-nourished Head exam: PRESENT: atraumatic, normocephalic Eye exam: PRESENT: conjunctiva pink, EOMI, PERRLA. ABSENT: scleral icterus Ear exam: PRESENT: normal external ear exam Mouth exam: PRESENT: moist, tongue midline Neck exam: ABSENT: carotid bruit, JVD, lymphadenopathy, thyromegaly Respiratory exam: PRESENT: clear to auscultation sandra. ABSENT: rales, rhonchi, wheezes Cardiovascular exam: PRESENT: RRR. ABSENT: diastolic murmur, rubs, systolic murmur Pulses: PRESENT: normal dorsalis pedis pul Vascular exam: PRESENT: normal capillary refill GI/Abdominal exam: PRESENT: normal bowel sounds, soft. ABSENT: distended, guarding, mass, organolmegaly, rebound, tenderness Rectal exam: PRESENT: deferred Extremities exam: PRESENT: full ROM. ABSENT: calf tenderness, clubbing, pedal edema Neurological exam: PRESENT: alert, awake, oriented to person, oriented to place, oriented to time, oriented to situation, CN II-XII grossly intact. ABSENT: motor sensory deficit Psychiatric exam: PRESENT: appropriate affect, normal mood. ABSENT: homicidal ideation, suicidal ideation Skin exam: PRESENT: dry, intact, warm. ABSENT: cyanosis, rash Results Laboratory Results: 07/05/19 03:54 07/05/19 03:54 07/04/19 07/04/19 07/05/19 12:27 12:27 03:54 WBC 8.3 8.5 RBC 4.62 4.43 Hgb 12.8 L 12.2 L Hct 39.4 37.4 L MCV 85 85 MCH 27.7 27.5 MCHC 32.4 32.6 RDW 15.1 H 15.0 H Plt Count 329 327 Seg Neutrophils % 75.3 Sodium 141.4 Potassium 3.3 L Chloride 105 Carbon Dioxide 26 Anion Gap 10 BUN 15 Creatinine 1.36 H Est GFR ( Amer) > 60 Glucose 150 H Calcium 8.9 Magnesium Total Bilirubin 0.6 AST 30 Alkaline Phosphatase 60 Total Protein 6.9 Albumin 3.7 Triglycerides Cholesterol LDL Cholesterol Direct VLDL Cholesterol HDL Cholesterol TSH 07/05/19 07/05/19 03:54 03:54 WBC RBC Hgb Hct MCV MCH MCHC RDW Plt Count Seg Neutrophils % Sodium 139.7 Potassium 3.7 Chloride 104 Carbon Dioxide 27 Anion Gap 9 BUN 17 Creatinine 1.38 H Est GFR ( Amer) > 60 Glucose 105 Calcium 8.8 Magnesium 2.0 Total Bilirubin AST Alkaline Phosphatase Total Protein Albumin Triglycerides 83 Cholesterol 179.51 LDL Cholesterol Direct 148 H VLDL Cholesterol 17.0 HDL Cholesterol 30 L TSH 2.72 07/04/19 07/04/19 07/04/19 12:27 18:00 21:10 Troponin I 0.061 0.059 0.060 NT-Pro-B Natriuret Pep 2020 H 07/05/19 03:54 Troponin I 0.066 NT-Pro-B Natriuret Pep Impressions: Chest X-Ray 07/04/19 12:17 IMPRESSION: Stable enlarged cardiac silhouette without overt edema. Assessment and Plan - Diagnosis (1) Hypertensive emergency Is this a current diagnosis for this admission?: Yes Plan: Secondary to acute on chronic CHF exacerbation, continue cocaine use, and medication/dietary noncompliance. The patient was provided IV Lopressor by the ED provider without much effect. Blood pressures on admission 220/120 with evidence of acute CHF exacerbation. We will resume the outpatient medication regiment patient should have previously been on: Amlodipine 10 mg nightly, clonidine 0.2 mill grams p.o. every 8, lisinopril 20 mg p.o. daily. Avoid beta-prema secondary to recent and continued cocaine use Nitropaste ointment now. IV hydralazine as needed for blood pressure control. Cardiac diet. 07/05/2019-etiology unknown at this time. Patient continues on Norvasc, clonidine, and lisinopril at this time. Have added hydralazine 50 mg p.o. every 8 hours. We will titrate these medications to further effect. Patient does have a history of congestive heart failure diastolic in nature he continues on Lasix 40 g p.o. twice daily. (2) Congestive heart failure Qualifiers: Heart failure type: diastolic Heart failure chronicity: acute on chronic Qualified Code(s): I50.33 - Acute on chronic diastolic (congestive) heart failure Is this a current diagnosis for this admission?: Yes Plan: Chest x-ray reveals cardiomegaly. proBNP elevated to 2019 We will diurese with IV furosemide 40 mg twice daily. We will resume the outpatient medication regiment the patient was discharged on previously; amlodipine 10 mg nightly, clonidine 0.2 mg p.o. every 8, lisinopril 20 mg daily. Avoiding beta blockers secondary to recent and continued cocaine use Nitropaste now for hypertensive emergency as above. Daily aspirin therapy. Cardiac diet. Daily weights and strict I&O's. Registered dietitian and patient educator consulted. 07/05/2019-lungs clear but decreased at this time. Lasix 40 mg IV twice daily at this time. We will continue daily weights and strict I&O's. Cardiac diet. (3) Non compliance with medical treatment Is this a current diagnosis for this admission?: Yes Plan: Medication and diet recommendations reinforced. 07/05/2019-continue to educate about the importance of medical compliance (4) Obesity (BMI 30-39.9) Is this a current diagnosis for this admission?: Yes Plan: BMI 38.1. Dietary and lifestyle modification are encouraged. Registered dietitian is consulted. 07/05/2019-educate about dietary modifications (5) Tobacco abuse Is this a current diagnosis for this admission?: Yes Plan: Smoking cessation encouraged. Nicotine replacement therapies provided. 07/05/2019-continue to educate about the importance of smoking cessation (6) Cocaine abuse Is this a current diagnosis for this admission?: Yes Plan: Cessation encouraged. Discharge planning consulted. 07/05/2019-continue educated about the importance of cocaine cessation (7) Dyslipidemia Is this a current diagnosis for this admission?: Yes Plan: 07/05/2019-atorvastin 40mg po daily hs. (8) Diabetes mellitus type 2 in obese Is this a current diagnosis for this admission?: Yes Plan: 07/05/2019-sliding scale insulin before meals and at bedtime. I will monitor his blood sugars and add appropriate p.o. medications. - Time Time Spent with patient: 15-24 minutes - Inpatient Certification Based on my medical assessment, after consideration of the patient's comorbidities, presenting symptoms, or acuity I expect that the services needed warrant INPATIENT care.: Yes I certify that my determination is in accordance with my understanding of Medicare's requirements for reasonable and necessary INPATIENT services [42 CFR 412.3e].: Yes Medical Necessity: Other - Hypertensive urgency
[2019-07-05] MEDS: INSULIN REG, HUMAN 100 UNIT/ML 3 ML VIAL (PYX) SUBCUT SCH ×4 (08:43→21:37)
[2019-07-05] MEDS ORDERED: INFLUENZA QUAD (6MOS+) 2019-20 VAC 0.5 ML SYR IM ONE (09:13)
[2019-07-05] MEDS: DOCUSATE SODIUM 100 MG CAPSULE PO SCH (09:16)
[2019-07-05] MEDS: HYDRALAZINE HCL 50 MG TABLET PO SCH ×3 (09:16→21:26)
[2019-07-05] MEDS: ASPIRIN 81 MG TABLET, CHEWABLE PO SCH (09:16)
[2019-07-05] MEDS: LISINOPRIL 10 MG TABLET PO SCH (09:17)
[2019-07-05] MEDS: FAMOTIDINE 20 MG TABLET PO SCH ×2 (09:17→21:26)
[2019-07-05] MEDS: FUROSEMIDE INJ/PF 40 MG/4 ML SDV IV SCH ×2 (09:17→21:26)
[2019-07-05] MEDS: NICOTINE 7 MG/24 HR PATCH.TD24 TD SCH (09:17)
--- NOTE | 2019-07-05 20:55 | EKG REPORT ---
SEVERITY:- ABNORMAL ECG - SINUS RHYTHM LEFT ATRIAL ABNORMALITY PROBABLE LVH WITH SECONDARY REPOL ABNRM PROLONGED QT INTERVAL : Confirmed by: Oanh Poe MD 05-Jul-2019 20:54:21
[2019-07-05] MEDS: ATORVASTATIN CALCIUM 40 MG TABLET PO SCH (21:26)
[2019-07-05] MEDS: AMLODIPINE BESYLATE 10 MG TABLET PO SCH (21:26)
[2019-07-06 04:40] LABS: MEAN CORPUSCULAR HEMOGLOBIN 27.8 pg (27.0-33.4); MEAN CORPUSCULAR HGB CONC 32.6 g/dL (32.0-36.0); MEAN CORPUSCULAR VOLUME 85 fl (80-97); PLATELET COUNT 372 10^3/uL (150-450); RED BLOOD COUNT 4.68 10^6/uL (4.35-5.55); RED CELL DISTRIBUTION WIDTH 14.8 % (11.5-14.0); WHITE BLOOD COUNT 8.3 10^3/uL (4.0-10.5)
[2019-07-06 05:03] LABS: ANION GAP 7 (5-19); BLOOD UREA NITROGEN 18 mg/dL (7-20); CALCIUM 9.6 mg/dL (8.4-10.2); CARBON DIOXIDE 33 mmol/L (22-30); CHLORIDE 100 mmol/L (98-107); GLUCOSE 112 mg/dL (75-110); POTASSIUM 4.5 mmol/L (3.6-5.0)
[2019-07-06] MEDS: HYDRALAZINE HCL 50 MG TABLET PO SCH ×3 (05:22→21:43)
[2019-07-06] MEDS: HEPARIN SOD (PORCINE) 5,000 UNIT/ML 1 ML VIAL SUBCUT SCH ×3 (05:22→21:45)
[2019-07-06] MEDS: CLONIDINE HCL 0.2 MG TABLET PO SCH ×3 (05:22→21:43)
[2019-07-06] MEDS ORDERED: DOXAZOSIN MESYLATE 2 MG TABLET PO ONE (07:42)
--- NOTE | 2019-07-06 08:08 | PDOC PROGRESS REPORT ---
Subjective Progress Note for:: 07/06/19 Subjective:: 07/05/2019-no complaints this a.m. 07/06/2019-no complaints Reason For Visit: HYPERTENSIVE URGENCY Physical Exam Vital Signs: Temp Pulse Resp BP Pulse Ox 98.2 F 68 24 H 171/97 H 97 07/06/19 03:15 07/06/19 03:15 07/06/19 03:15 07/06/19 03:15 07/06/19 03:15 Intake & Output 07/05/19 07/06/19 07/07/19 06:59 06:59 06:59 Intake Total 700 1535 Output Total 2750 5000 Balance -2050 -3465 Weight 118.8 kg 118.3 kg General appearance: PRESENT: no acute distress, well-developed, well-nourished Head exam: PRESENT: atraumatic, normocephalic Eye exam: PRESENT: conjunctiva pink, EOMI, PERRLA. ABSENT: scleral icterus Ear exam: PRESENT: normal external ear exam Mouth exam: PRESENT: moist, tongue midline Neck exam: ABSENT: carotid bruit, JVD, lymphadenopathy, thyromegaly Respiratory exam: PRESENT: clear to auscultation sandra. ABSENT: rales, rhonchi, wheezes Cardiovascular exam: PRESENT: RRR. ABSENT: diastolic murmur, rubs, systolic mu rmur Pulses: PRESENT: normal dorsalis pedis pul Vascular exam: PRESENT: normal capillary refill GI/Abdominal exam: PRESENT: normal bowel sounds, soft. ABSENT: distended, guarding, mass, organolmegaly, rebound, tenderness Rectal exam: PRESENT: deferred Extremities exam: PRESENT: full ROM. ABSENT: calf tenderness, clubbing, pedal edema Neurological exam: PRESENT: alert, awake, oriented to person, oriented to place, oriented to time, oriented to situation, CN II-XII grossly intact. ABSENT: motor sensory deficit Psychiatric exam: PRESENT: appropriate affect, normal mood. ABSENT: homicidal ideation, suicidal ideation Skin exam: PRESENT: dry, intact, warm. ABSENT: cyanosis, rash Results Laboratory Results: 07/06/19 03:46 07/06/19 03:46 07/06/19 07/06/19 03:46 03:46 WBC 8.3 RBC 4.68 Hgb 13.0 L Hct 40.0 MCV 85 MCH 27.8 MCHC 32.6 RDW 14.8 H Plt Count 372 Sodium 140.4 Potassium 4.5 Chloride 100 Carbon Dioxide 33 H Anion Gap 7 BUN 18 Creatinine 1.54 H Est GFR ( Amer) 58 L Glucose 112 H Calcium 9.6 07/04/19 07/04/19 07/04/19 12:27 18:00 21:10 Troponin I 0.061 0.059 0.060 NT-Pro-B Natriuret Pep 2020 H 07/05/19 03:54 Troponin I 0.066 NT-Pro-B Natriuret Pep Impressions: Chest X-Ray 07/04/19 12:17 IMPRESSION: Stable enlarged cardiac silhouette without overt edema. Assessment and Plan - Diagnosis (1) Hypertensive emergency Is this a current diagnosis for this admission?: Yes (2) Congestive heart failure Qualifiers: Heart failure type: diastolic Heart failure chronicity: acute on chronic Qualified Code(s): I50.33 - Acute on chronic diastolic (congestive) heart failure Is this a current diagnosis for this admission?: Yes (3) Non compliance with medical treatment Is this a current diagnosis for this admission?: Yes (4) Obesity (BMI 30-39.9) Is this a current diagnosis for this admission?: Yes (5) Tobacco abuse Is this a current diagnosis for this admission?: Yes (6) Cocaine abuse Is this a current diagnosis for this admission?: Yes (7) Dyslipidemia Is this a current diagnosis for this admission?: Yes (8) Diabetes mellitus type 2 in obese Is this a current diagnosis for this admission?: Yes - Summary Assessment: 07/2019 hypertensive urgency-patient remains on Norvasc, clonidine and lisinopril at this time. Hydralazine was added yesterday today I will add doxazosin 2 mg p.o. x1 and see if this helps his blood pressure issues. If so I will continue on this daily. Patient need to be checked for primary hyperaldosteronism or other causative agent for his hypertension. Congestive heart failure-lungs remain clear but decreased at this time. Lasix 40 mg IV twice daily remains. Continue strict I/O's. Medical noncompliance-continue to educate about importance of medical compliance. Obesity-continue to educate about the importance of dietary modifications Tobacco abuse-continue to educate about the importance of tobacco cessation Cocaine abuse-continue to educate about the importance of cocaine cessation throughout hospital stay. Dyslipidemia-continue atorvastatin Diabetes mellitus type 2 obese-continue sliding scale insulin at this time. Have added glipizide 5 mg p.o. daily - Time Time Spent with patient: 15-24 minutes - Inpatient Certification Based on my medical assessment, after consideration of the patient's comorbidities, presenting symptoms, or acuity I expect that the services needed warrant INPATIENT care.: Yes I certify that my determination is in accordance with my understanding of Medicare's requirements for reasonable and necessary INPATIENT services [42 CFR 412.3e].: Yes Medical Necessity: Other - Continue to titrate hypertensive medications
[2019-07-06] MEDS: INSULIN REG, HUMAN 100 UNIT/ML 3 ML VIAL (PYX) SUBCUT SCH ×4 (08:38→21:45)
[2019-07-06] MEDS: GLIPIZIDE 5 MG TABLET PO SCH (08:48)
[2019-07-06] MEDS: ASPIRIN 81 MG TABLET, CHEWABLE PO SCH (11:18)
[2019-07-06] MEDS: FUROSEMIDE INJ/PF 40 MG/4 ML SDV IV SCH ×2 (11:18→21:44)
[2019-07-06] MEDS: NICOTINE 7 MG/24 HR PATCH.TD24 TD SCH (11:18)
[2019-07-06] MEDS: FAMOTIDINE 20 MG TABLET PO SCH ×2 (11:18→21:43)
[2019-07-06] MEDS: LISINOPRIL 10 MG TABLET PO SCH (11:18)
[2019-07-06] MEDS: DOCUSATE SODIUM 100 MG CAPSULE PO SCH (11:18)
[2019-07-06] MEDS: ATORVASTATIN CALCIUM 40 MG TABLET PO SCH (21:43)
[2019-07-06] MEDS: AMLODIPINE BESYLATE 10 MG TABLET PO SCH (21:44)
[2019-07-07] MEDS: CLONIDINE HCL 0.2 MG TABLET PO SCH (05:07)
[2019-07-07] MEDS: HYDRALAZINE HCL 50 MG TABLET PO SCH (05:07)
[2019-07-07] MEDS: HEPARIN SOD (PORCINE) 5,000 UNIT/ML 1 ML VIAL SUBCUT SCH (05:08)
[2019-07-07 06:08] LABS: ANION GAP 7 (5-19); BLOOD UREA NITROGEN 24 mg/dL (7-20); CALCIUM 9.5 mg/dL (8.4-10.2); CARBON DIOXIDE 33 mmol/L (22-30); CHLORIDE 99 mmol/L (98-107); GLUCOSE 105 mg/dL (75-110); POTASSIUM 4.6 mmol/L (3.6-5.0)
[2019-07-07] MEDS: INSULIN REG, HUMAN 100 UNIT/ML 3 ML VIAL (PYX) SUBCUT SCH (07:44)
[2019-07-07] MEDS: GLIPIZIDE 5 MG TABLET PO SCH (07:46)
--- NOTE | 2019-07-07 08:14 | PDOC DISCHARGE SUMMARY ---
Impression - Admit/DC Date/PCP Admission Date/Primary Care Provider: 07/06/19 15:25 No primary care Discharge Date: 07/07/19 - Discharge Diagnosis (1) Hypertensive emergency Is this a current diagnosis for this admission?: Yes (2) Congestive heart failure Is this a current diagnosis for this admission?: Yes (3) Non compliance with medical treatment Is this a current diagnosis for this admission?: Yes (4) Obesity (BMI 30-39.9) Is this a current diagnosis for this admission?: Yes (5) Tobacco abuse Is this a current diagnosis for this admission?: Yes (6) Cocaine abuse Is this a current diagnosis for this admission?: Yes (7) Dyslipidemia Is this a current diagnosis for this admission?: Yes (8) Diabetes mellitus type 2 in obese Is this a current diagnosis for this admission?: Yes - Assessment Summary: 07/2019 hypertensive urgency-patient remains on Norvasc, clonidine and lisinopril at this time. Hydralazine was added yesterday today I will add doxazosin 2 mg p.o. x1 and see if this helps his blood pressure issues. If so I will continue on this daily. Patient need to be checked for primary hyperaldosteronism or other causative agent for his hypertension. Congestive heart failure-lungs remain clear but decreased at this time. Lasix 40 mg IV twice daily remains. Continue strict I/O's. Medical noncompliance-continue to educate about importance of medical compliance. Obesity-continue to educate about the importance of dietary modifications Tobacco abuse-continue to educate about the importance of tobacco cessation Cocaine abuse-continue to educate about the importance of cocaine cessation throughout hospital stay. Dyslipidemia-continue atorvastatin Diabetes mellitus type 2 obese-continue sliding scale insulin at this time. Have added glipizide 5 mg p.o. daily - Additional Information Resuscitation Status: Full Code Discharge Diet: As Tolerated, Cardiac, Diabetic Discharge Activity: Activity As Tolerated, Balance Activity w/Rest, Weigh Daily Referrals: [facility] [Provider Group] - 07/11/19 3:30 pm Prescriptions: Hydralazine HCl [Apresoline 50 mg Tablet] 50 mg PO Q8 #90 tablet Doxazosin Mesylate [Cardura 2 mg Tablet] 2 mg PO DAILY #30 tablet Clonidine HCl [Catapres 0.2 mg Tablet] 0.2 mg PO Q8 #90 tablet Glipizide [Glucotrol 5 mg Tablet] 5 mg PO QAM #30 tablet Atorvastatin Calcium [Lipitor 40 mg Tablet] 40 mg PO QHS #30 tablet Lisinopril 20 mg PO DAILY #30 tablet Amlodipine Besylate [Norvasc 10 mg Tablet] 10 mg PO QHS #30 tablet Home Medications: Amlodipine Besylate [Norvasc 10 mg Tablet] 10 mg PO QHS #30 tablet 07/07/19 Atorvastatin Calcium [Lipitor 40 mg Tablet] 40 mg PO QHS #30 tablet 07/07/19 Clonidine HCl [Catapres 0.2 mg Tablet] 0.2 mg PO Q8 #90 tablet 07/07/19 Doxazosin Mesylate [Cardura 2 mg Tablet] 2 mg PO DAILY #30 tablet 07/07/19 Glipizide [Glucotrol 5 mg Tablet] 5 mg PO QAM #30 tablet 07/07/19 Hydralazine HCl [Apresoline 50 mg Tablet] 50 mg PO Q8 #90 tablet 07/07/19 Lisinopril 20 mg PO DAILY #30 tablet 07/07/19 History of Present Illiness History of Present Illness: ANTHONY AMBRIZ is a 48 year old male who presented to the ER with medical noncompliance, hypertension, diastolic congestive heart failure, severe LVH, chronic kidney disease, crack cocaine abuse, and a non-STEMI. Hospital Course Hospital Course: Patient was admitted and placed on IMCU. Throughout his hospital stay patient had blood pressure medications titrated and was found to have type 2 diabetes mellitus. Patient was placed on oral medications for his type 2 diabetes mellitus and multiple medications for his hypertension. Patient was started on Lasix 40 mg IV twice daily however he did not show overt pulmonary edema but did have cardiomegaly on chest x-ray. Patient showed subsequent improvement throughout his hospital stay and as needed today he has improved sufficiently return home. Patient set up with primary care within 1 week. I will continue all blood pressure medication including lisinopril, Norvasc, doxazosin, Lasix. Patient has been educated about tobacco and cocaine abuse cessation patient is in agreement with plan of care at this time. Physical Exam Vital Signs: Temp Pulse Resp BP Pulse Ox 97.7 F 66 16 135/82 H 96 07/07/19 07:26 07/07/19 07:26 07/07/19 07:26 07/07/19 07:26 07/07/19 07:26 Intake & Output 07/06/19 07/07/19 07/08/19 06:59 06:59 06:59 Intake Total 1535 1640 Output Total 7822 1325 Balance -3465 315 Weight 118.3 kg 118 kg General appearance: PRESENT: no acute distress, well-developed, well-nourished Head exam: PRESENT: atraumatic, normocephalic Eye exam: PRESENT: conjunctiva pink, EOMI, PERRLA. ABSENT: scleral icterus Ear exam: PRESENT: normal external ear exam Mouth exam: PRESENT: moist, tongue midline Neck exam: ABSENT: carotid bruit, JVD, lymphadenopathy, thyromegaly Respiratory exam: PRESENT: clear to auscultation sandra. ABSENT: rales, rhonchi, wheezes Cardiovascular exam: PRESENT: RRR. ABSENT: diastolic murmur, rubs, systolic murmur Pulses: PRESENT: normal dorsalis pedis pul Vascular exam: PRESENT: normal capillary refill GI/Abdominal exam: PRESENT: normal bowel sounds, soft. ABSENT: distended, guarding, mass, organolmegaly, rebound, tenderness Rectal exam: PRESENT: deferred Extremities exam: PRESENT: full ROM. ABSENT: calf tenderness, clubbing, pedal edema Neurological exam: PRESENT: alert, awake, oriented to person, oriented to place, oriented to time, oriented to situation, CN II-XII grossly intact. ABSENT: motor sensory deficit Psychiatric exam: PRESENT: appropriate affect, normal mood. ABSENT: homicidal ideation, suicidal ideation Skin exam: PRESENT: dry, intact, warm. ABSENT: cyanosis, rash Results Laboratory Results: WBC 8.3 10^3/uL (4.0-10.5) 07/06/19 03:46 RBC 4.68 10^6/uL (4.35-5.55) 07/06/19 03:46 Hgb 13.0 g/dL (13.5-17.0) L 07/06/19 03:46 Hct 40.0 % (37.9-51.0) 07/06/19 03:46 MCV 85 fl (80-97) 07/06/19 03:46 MCH 27.8 pg (27.0-33.4) 07/06/19 03:46 MCHC 32.6 g/dL (32.0-36.0) 07/06/19 03:46 RDW 14.8 % (11.5-14.0) H 07/06/19 03:46 Plt Count 372 10^3/uL (150-450) 07/06/19 03:46 Lymph % (Auto) 14.6 % (13-45) 07/04/19 12:27 [place] % (Auto) 7.7 % (3-13) 07/04/19 12:27 Eos % (Auto) 0.9 % (0-6) 07/04/19 12:27 Baso % (Auto) 1.5 % (0-2) 07/04/19 12:27 Absolute Neuts (auto) 6.3 10^3/uL (1.7-8.2) 07/04/19 12:27 Absolute Lymphs (auto) 1.2 10^3/uL (0.5-4.7) 07/04/19 12:27 Absolute Monos (auto) 0.6 10^3/uL (0.1-1.4) 07/04/19 12:27 Absolute Eos (auto) 0.1 10^3/uL (0.0-0.6) 07/04/19 12:27 Absolute Basos (auto) 0.1 10^3/uL (0.0-0.2) 07/04/19 12:27 Seg Neutrophils % 75.3 % (42-78) 07/04/19 12:27 Sodium 138.8 mmol/L (137-145) 07/07/19 04:48 Potassium 4.6 mmol/L (3.6-5.0) 07/07/19 04:48 Chloride 99 mmol/L (98-107) 07/07/19 04:48 Carbon Dioxide 33 mmol/L (22-30) H 07/07/19 04:48 Anion Gap 7 (5-19) 07/07/19 04:48 BUN 24 mg/dL (7-20) H 07/07/19 04:48 Creatinine 1.52 mg/dL (0.52-1.25) H 07/07/19 04:48 Est GFR ( Amer) 59 (>60) L 07/07/19 04:48 Est GFR (MDRD) Non-Af 49 (>60) L 07/07/19 04:48 Glucose 105 mg/dL (75-110) 07/07/19 04:48 POC Glucose 106 mg/dL (70-110) 07/07/19 07:24 Hemoglobin A1c % 6.9 % (4.7-6.0) H 07/05/19 03:54 Calcium 9.5 mg/dL (8.4-10.2) 07/07/19 04:48 Magnesium 2.0 mg/dL (1.6-2.3) 07/05/19 03:54 Total Bilirubin 0.6 mg/dL (0.2-1.3) 07/04/19 12:27 Direct Bilirubin 0.2 mg/dL (0.0-0.4) 07/04/19 12:27 Neonat Total Bilirubin Not Reportable 07/04/19 12:27 Neonat Direct Bilirubin Not Reportable 07/04/19 12:27 Neonat Indirect Bili Not Reportable 07/04/19 12:27 AST 30 U/L (17-59) 07/04/19 12:27 ALT 35 U/L (<50) 07/04/19 12:27 Alkaline Phosphatase 60 U/L (38-126) 07/04/19 12:27 Troponin I 0.066 ng/mL 07/05/19 03:54 NT-Pro-B Natriuret Pep 2020 pg/mL (<125) H 07/04/19 12:27 Total Protein 6.9 g/dL (6.3-8.2) 07/04/19 12:27 Albumin 3.7 g/dL (3.5-5.0) 07/04/19 12:27 Triglycerides 83 mg/dL (<150) 07/05/19 03:54 Cholesterol 179.51 mg/dL (0-200) 07/05/19 03:54 LDL Cholesterol Direct 148 mg/dL (<100) H 07/05/19 03:54 VLDL Cholesterol 17.0 mg/dL (10-31) 07/05/19 03:54 HDL Cholesterol 30 mg/dL (>40) L 07/05/19 03:54 TSH 2.72 uIU/mL (0.47-4.68) 07/05/19 03:54 Urine Opiates Screen NEGATIVE 07/04/19 13:07 Urine Methadone Screen NEGATIVE 07/04/19 13:07 Ur Barbiturates Screen NEGATIVE 07/04/19 13:07 Ur Phencyclidine Scrn NEGATIVE 07/04/19 13:07 Ur Amphetamines Screen NEGATIVE 07/04/19 13:07 U Benzodiazepines Scrn NEGATIVE 07/04/19 13:07 Urine Cocaine Screen UNCONFIRMED POSITIVE 07/04/19 13:07 U Marijuana (THC) Screen NEGATIVE 07/04/19 13:07 07/04/19 07/04/19 07/04/19 12:27 18:00 21:10 Troponin I 0.061 0.059 0.060 NT-Pro-B Natriuret Pep 2020 H 07/05/19 03:54 Troponin I 0.066 NT-Pro-B Natriuret Pep Impressions: Chest X-Ray 07/04/19 12:17 IMPRESSION: Stable enlarged cardiac silhouette without overt edema. Plan Time Spent: Greater than 30 Minutes Stroke Is this a Stroke Patient?: No Acute Heart Failure - Is this a Heart Failure Patient?: No
[2019-07-07 08:35] VITALS: BP 221/118
[2019-07-07] MEDS: LISINOPRIL 10 MG TABLET PO SCH (09:26)
[2019-07-07] MEDS: DOCUSATE SODIUM 100 MG CAPSULE PO SCH (09:27)
[2019-07-07] MEDS: FUROSEMIDE INJ/PF 40 MG/4 ML SDV IV SCH (09:27)
[2019-07-07] MEDS: FAMOTIDINE 20 MG TABLET PO SCH (09:27)
[2019-07-07] MEDS: ASPIRIN 81 MG TABLET, CHEWABLE PO SCH (09:27)
[2019-07-07] MEDS: NICOTINE 7 MG/24 HR PATCH.TD24 TD SCH (09:27)
== END 2019-07-07 10:05 | disposition home or self-care (01) | DRG 291 ==
LOC: ER 11:46 → INTOOBSV 14:01 → EH 14:01 → 3N 15:33 → OBSVTOIN 07-06 15:25
PROVIDERS: ADMIT Internal Medicine; ATTEND Internal Medicine
DX: I13.0 Hypertensive heart and chronic kidney disease with heart failure and stage 1 through stage 4 chronic kidney disease, or unspecified chronic kidney disease (principal); I50.33 Acute on chronic diastolic (congestive) heart failure; I16.1 Hypertensive emergency; I25.2 Old myocardial infarction; N18.3 Chronic kidney disease, stage 3 (moderate); T50.1X6A Underdosing of loop [high-ceiling] diuretics, initial encounter; E66.9 Obesity, unspecified; F14.10 Cocaine abuse, uncomplicated; E11.22 Type 2 diabetes mellitus with diabetic chronic kidney disease; E78.5 Hyperlipidemia, unspecified; F32.9 Major depressive disorder, single episode, unspecified; F17.200 Nicotine dependence, unspecified, uncomplicated; Z83.3 Family history of diabetes mellitus; Z91.128 Patient's intentional underdosing of medication regimen for other reason; Z82.49 Family history of ischemic heart disease and other diseases of the circulatory system; Z91.11 Patient's noncompliance with dietary regimen; Z68.38 Body mass index [BMI] 38.0-38.9, adult; Z71.6 Tobacco abuse counseling; Z79.84 Long term (current) use of oral hypoglycemic drugs; Z91.030 Bee allergy status; Z79.899 Other long term (current) drug therapy
CPT/HCPCS: 36415; 71046; 80048; 80053; 80061; 80307; 82962; 83036; 83735; 83880; 84443; 84484; 85025; 85027; 93005; 93010; 96374; 96375; 99285; G0378; J1644; J1815; J1940; J3490

== ENCOUNTER 2019-07-11 17:17 | Emergency (ER) | payer SELFPAY ==
[2019-07-11] MEDS ORDERED: AMLODIPINE BESYLATE 10 MG TABLET PO ONE ×2 (18:54→20:42)
[2019-07-11] MEDS ORDERED: HYDRALAZINE HCL 50 MG TABLET PO ONE ×2 (18:54→20:41)
[2019-07-11] MEDS ORDERED: CLONIDINE HCL 0.1 MG TABLET PO ONE (18:54)
--- NOTE | 2019-07-11 18:56 | ER Document Report ---
ED Medical Screen (RME) - General Chief Complaint: High Blood Pressure Stated Complaint: BLOOD PRESSURE Time Seen by Provider: 07/11/19 18:39 Mode of Arrival: Ambulatory Information source: Patient Notes: Patient presents with asymptomatic hypertension. Patient denies any headache, chest pain, blurred vision, abdominal or back pain. Patient denies any urinary symptoms. Patient states that he went to the [facility] to get his medications refilled after he was discharged from the hospital this past Thursday. Patient states they checked his blood pressure and it was elevated so they gave him one tab of .1 Catapres and advised him to come here for further management. I have greeted and performed a rapid initial assessment of this patient. A comprehensive ED assessment and evaluation of the patient, analysis of test results and completion of the medical decision making process will be conducted by additional ED providers. TRAVEL OUTSIDE OF THE [place] IN LAST 30 DAYS: No - Related Data Allergies/Adverse Reactions: No Known Drug Allergies Allergy (Verified 07/04/19 12:13) bees Allergy (Severe, Uncoded 07/04/19 12:13) Past Medical History - Social History Frequency of alcohol use: None Drug Abuse: Cocaine Family history: Reviewed & Not Pertinent - Past Medical History Cardiac Medical History: Reports: Hx Congestive Heart Failure, Hx Hypertension Denies: Hx Heart Attack Endocrine Medical History: Denies: Hx Diabetes Mellitus Type 1, Hx Diabetes Mellitus Type 2, Hx Hypothyroidism Renal/ Medical History: Denies: Hx Peritoneal Dialysis Psychiatric Medical History: Reports: Hx Depression Past Surgical History: Reports: Hx Abdominal Surgery - hernia repair, Hx Herniorrhaphy - Immunizations Hx Diphtheria, Pertussis, Tetanus Vaccination: Yes Physical Exam - Vital signs Vitals: Temp Pulse Resp BP Pulse Ox 98.2 F 79 16 224/135 H 98 07/11/19 18:02 07/11/19 18:02 07/11/19 18:02 07/11/19 18:02 07/11/19 18:02 - General General appearance: Appears well, Alert In distress: None - Respiratory Respiratory status: No respiratory distress Breath sounds: Normal Course - Re-evaluation Re-evalutation: 07/11/19 18:[address] Chew who does not recommend doing any diagnostic test as patient has asymptomatic hypertension. Advises giving patient medication to bring his blood pressure down or offering patient a weekly Catapres patch so that he can get his medications filled this week. - Vital Signs Vital signs: Temp Pulse Resp BP Pulse Ox 98.2 F 79 16 224/135 H 98 07/11/19 18:02 07/11/19 18:02 07/11/19 18:02 07/11/19 18:02 07/11/19 18:02
[2019-07-11 20:18] VITALS: BP 221/110
[2019-07-11] MEDS ORDERED: LISINOPRIL 10 MG TABLET PO ONE (20:41)
[2019-07-11] MEDS ORDERED: FUROSEMIDE 40 MG TABLET PO ONE (20:41)
--- NOTE | 2019-07-11 20:45 | ER Document Report ---
HPI - HPI Time Seen by Provider: 07/11/19 18:39 Pain Level: Denies Notes: Patient presents with asymptomatic hypertension. Patient denies any headache, chest pain, blurred vision, abdominal or back pain. Patient denies any urinary symptoms. Patient states that he went to the [facility] to get his medications refilled after he was discharged from the hospital this past Thursday. Patient states they checked his blood pressure and it was elevated so they gave him one tab of .1 Catapres and advised him to come here for further management. - REPRODUCTIVE Reproductive: DENIES: : Past Medical History - General Information source: Patient - Social History Smoking Status: Current Some Day Smoker Frequency of alcohol use: None Drug Abuse: Cocaine Family History: DM, Hypertension, Malignancy Patient has suicidal ideation: No Patient has homicidal ideation: No - Past Medical History Cardiac Medical History: Reports: Hx Congestive Heart Failure, Hx Hypertension Denies: Hx Heart Attack Endocrine Medical History: Reports: Hx Diabetes Mellitus Type 2. Denies: Hx Diabetes Mellitus Type 1, Hx Hypothyroidism Renal/ Medical History: Denies: Hx Peritoneal Dialysis Psychiatric Medical History: Reports: Hx Depression Past Surgical History: Reports: Hx Abdominal Surgery - hernia repair, Hx Herniorrhaphy - Immunizations Hx Diphtheria, Pertussis, Tetanus Vaccination: Yes Vertical Provider Document - CONSTITUTIONAL Notes: PHYSICAL EXAMINATION: GENERAL: Well-appearing, well-nourished and in no acute distress. HEAD: Atraumatic, normocephalic. EYES: Pupils equal round extraocular movements intact, conjunctiva are normal. ENT: Nares patent NECK: Normal range of motion LUNGS: No respiratory distress Musculoskeletal: Normal range of motion NEUROLOGICAL: Normal speech, normal gait. PSYCH: Normal mood, normal affect. SKIN: Warm, Dry, normal turgor, no rashes or lesions noted. - INFECTION CONTROL TRAVEL OUTSIDE OF THE [place] IN LAST 30 DAYS: No Course - Re-evaluation Re-evalutation: Patient presenting with asymptomatic hypertension. Pressure has come down some after administration of medications here in the emergency department patient will be given additional dose of blood pressure medications so that he can take these in the morning. 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 Patient verbalizes understanding and agreement with this plan. Patient given strict ED return precautions. - Vital Signs Vital signs: Temp Pulse Resp BP Pulse Ox 97.2 F 75 20 221/110 H 98 07/11/19 20:18 07/11/19 20:18 07/11/19 20:18 07/11/19 20:18 07/11/19 20:18 Discharge - Discharge Clinical Impression: Hypertension Qualifiers: Hypertension type: unspecified Qualified Code(s): I10 - Essential (primary) hypertension Condition: Stable Disposition: HOME, SELF-CARE Additional Instructions: Please take the dose of medications that we sent you home with first thing in the morning. Please go to the [facility] so that they can help you get your medications refilled through the [facility]. For any additional concerns please return to the emergency department.
== END 2019-07-11 20:54 | disposition home or self-care (01) ==
LOC: ER 17:17
DX: I11.0 Hypertensive heart disease with heart failure (principal); I50.9 Heart failure, unspecified; E11.9 Type 2 diabetes mellitus without complications; F14.10 Cocaine abuse, uncomplicated; F17.200 Nicotine dependence, unspecified, uncomplicated
CPT/HCPCS: 99283

== ENCOUNTER 2019-08-25 19:10 | Inpatient (IN) | payer OTHER ==
[2019-08-25] MEDS ORDERED: ACETAMINOPHEN 325 MG TABLET PO ONE (19:55)
[2019-08-25] MEDS ORDERED: CLONIDINE HCL 0.1 MG TABLET PO ONE (19:56)
[2019-08-25] MEDS ORDERED: IPRATROPIUM/ALBUTEROL 0.5-2.5 MG/3 ML AMPUL NEB ONE (19:57)
--- NOTE | 2019-08-25 19:57 | ER Document Report ---
ED Medical Screen (RME) - General Stated Complaint: TROUBLE BREATHING Time Seen by Provider: 08/25/19 19:52 TRAVEL OUTSIDE OF THE [place] IN LAST 30 DAYS: No - HPI Notes: 08/25/19 19:53 Patient is a 49-year-old male with a history of hypertension, CHF, stage II chronic kidney disease, regular crack cocaine who presents complaining of swelling to his legs along with nasal congestion/discharge, semi-productive cough, chest soreness mostly with cough, shortness of breath at rest and dyspnea on exertion for the past 1.5 weeks. Last use of cocaine was 4 days ago. Patient did have to be admitted a little over a month ago for hypertensive urgency. Denies any prolonged immobilization, distance travel, recent surgery/trauma, personal cancer history, hormone use, or previous DVT/PE. Denies LANDA, fever, neck pain, n/v/d, Abd pain, dysuria, back pain, or rash. I have treated and performed a rapid initial assessment of this patient. A comprehensive ED assessment and evaluation of the patient, analysis of test results and completion of medical decision making process will be conducted by additional ED providers. PHYSICAL EXAMINATION: GENERAL: Well-appearing, well-nourished and in no acute distress. A&Ox4. Answers questions appropriately. LUNGS: somewhat diminished at base b/l. no retractions. HEART: Regular rate and rhythm without murmurs, rubs, gallops. Extremities: 1-2+ pitting edema b/l LE's. Sera negative bilaterally. No lower extremity asymmetry. NEUROLOGICAL: Normal speech, normal gait. PSYCH: Normal mood, normal affect. - Related Data Allergies/Adverse Reactions: No Known Drug Allergies Allergy (Verified 08/25/19 19:47) bees Allergy (Severe, Uncoded 08/25/19 19:47) Past Medical History - Social History Family history: Reviewed & Not Pertinent - Past Medical History Cardiac Medical History: Reports: Hx Congestive Heart Failure, Hx Hypertension Denies: Hx Heart Attack Endocrine Medical History: Reports: Hx Diabetes Mellitus Type 2. Denies: Hx Diabetes Mellitus Type 1, Hx Hypothyroidism Renal/ Medical History: Denies: Hx Peritoneal Dialysis Psychiatric Medical History: Reports: Hx Depression Past Surgical History: Reports: Hx Abdominal Surgery - hernia repair, Hx Herniorrhaphy - Immunizations Hx Diphtheria, Pertussis, Tetanus Vaccination: Yes Physical Exam - Vital signs Vitals: Temp Pulse Resp BP Pulse Ox 99.1 F 102 H 24 H 194/103 H 98 08/25/19 19:34 08/25/19 19:34 08/25/19 19:34 08/25/19 19:34 08/25/19 19:34 Course - Vital Signs Vital signs: Temp Pulse Resp BP Pulse Ox 99.1 F 102 H 24 H 194/103 H 98 08/25/19 19:34 08/25/19 19:34 08/25/19 19:34 08/25/19 19:34 08/25/19 19:34
--- NOTE | 2019-08-25 20:27 | RADIOLOGY REPORT (SQ) ---
EXAM DESCRIPTION: XR CHEST 2 VIEWS COMPLETED DATE/TME: 08/25/2019 19:55 CLINICAL HISTORY: 49 years, Male, cough/cp COMPARISON: Multiple priors, most recent from 07/04/2019 NUMBER OF VIEWS: Two TECHNIQUE: Frontal and lateral radiographs of the chest were obtained LIMITATIONS: None. FINDINGS: Cardiopericardial silhouette is enlarged. Mediastinal contours are stable. Patchy right basilar opacity is evident. No pleural effusion or pneumothorax. IMPRESSION: Patchy right basilar opacity. Consider atelectasis or pneumonia to include aspiration. Stable cardiomegaly. copyright 2010 [email or web address]- All Rights Reserved
[2019-08-25 20:54] LABS: ABSOLUTE BASOPHILS # (AUTO) 0.1 10^3/uL (0.0-0.2); ABSOLUTE EOSINOPHILS # (AUTO) 0.1 10^3/uL (0.0-0.6); EOSINOPHILS % (AUTO) 1.4 % (0-6); MEAN CORPUSCULAR HEMOGLOBIN 27.5 pg (27.0-33.4); MEAN CORPUSCULAR VOLUME 83 fl (80-97); PLATELET COUNT 234 10^3/uL (150-450); TOTAL CELLS COUNTED % (AUTO) 100 %; WHITE BLOOD COUNT 4.9 10^3/uL (4.0-10.5)
[2019-08-25 21:00] LABS: ABSOLUTE LYMPHOCYTES (AUTO) 0.9 10^3/uL (0.5-4.7); ABSOLUTE MONOCYTES (AUTO) 0.7 10^3/uL (0.1-1.4); ABSOLUTE NEUT (AUTO) 3.2 10^3/uL (1.7-8.2); BASOPHILS % (AUTO) 1.1 % (0-2); HEMATOCRIT 44.6 % (37.9-51.0); HEMOGLOBIN 14.7 g/dL (13.5-17.0); LYMPHOCYTES % (AUTO) 17.6 % (13-45); MEAN CORPUSCULAR HGB CONC 33.1 g/dL (32.0-36.0); MONOCYTES % (AUTO) 14.4 % (3-13); RED BLOOD COUNT 5.37 10^6/uL (4.35-5.55); RED CELL DISTRIBUTION WIDTH 15.6 % (11.5-14.0); SEGMENTED NEUTROPHILS % (AUTO) 65.5 % (42-78)
[2019-08-25 21:11] LABS: ALBUMIN 4.1 g/dL (3.5-5.0); ALKALINE PHOSPHATASE 64 U/L (38-126); ANION GAP 10 (5-19); ASPARTATE AMINO TRANSFERASE 50 U/L (17-59); BILIRUBIN,DIRECT 0.1 mg/dL (0.0-0.4); BILIRUBIN,TOTAL 0.4 mg/dL (0.2-1.3); BLOOD UREA NITROGEN 19 mg/dL (7-20); CALCIUM 9.4 mg/dL (8.4-10.2); CARBON DIOXIDE 34 mmol/L (22-30); CHLORIDE 97 mmol/L (98-107); GLUCOSE 169 mg/dL (75-110); POTASSIUM 3.6 mmol/L (3.6-5.0); TOTAL PROTEIN 7.7 g/dL (6.3-8.2)
[2019-08-25 21:27] LABS: TROPONIN I 0.115 ng/mL
--- NOTE | 2019-08-25 21:57 | ER Document Report ---
ED General - General Chief Complaint: Cold Symptoms Stated Complaint: TROUBLE BREATHING Time Seen by Provider: 08/25/19 19:52 Notes: Patient is a 49-year-old male that comes to the emergency department for chief complaint of coughing, sneezing, congestion, pain in his chest with cough, and swelling in both of his legs over the past 2 to 3 days. He states he is coughing so much she is having trouble sleeping. He denies fever, he does state occasionally feels short of breath at rest. Past medical history includes hypertension, chronic kidney disease, CHF on Lasix 40/60 daily, and regular cocaine use. Patient states that he has not used cocaine since Thursday (about 4 days now). Patient also states that he has not had his Lasix today and he has not had his blood pressure medications this afternoon/evening. TRAVEL OUTSIDE OF THE [place] IN LAST 30 DAYS: No - Related Data Allergies/Adverse Reactions: No Known Drug Allergies Allergy (Verified 08/25/19 19:47) bees Allergy (Severe, Uncoded 08/25/19 19:47) Home Medications: 5 blood pressure medications Past Medical History - General Information source: Patient - Social History Smoking Status: Current Every Day Smoker Frequency of alcohol use: None Drug Abuse: Cocaine Lives with: Alone Family History: DM, Hypertension, Malignancy Patient has suicidal ideation: No Patient has homicidal ideation: No - Past Medical History Cardiac Medical History: Reports: Hx Congestive Heart Failure, Hx Hypertension Denies: Hx Heart Attack Endocrine Medical History: Reports: Hx Diabetes Mellitus Type 2. Denies: Hx Diabetes Mellitus Type 1, Hx Hypothyroidism Renal/ Medical History: Denies: Hx Peritoneal Dialysis Psychiatric Medical History: Reports: Hx Depression Past Surgical History: Reports: Hx Abdominal Surgery - hernia repair, Hx Herniorrhaphy - Immunizations Hx Diphtheria, Pertussis, Tetanus Vaccination: Yes Review of Systems - Review of Systems Constitutional: See HPI EENT: See HPI Cardiovascular: See HPI Respiratory: See HPI Gastrointestinal: No symptoms reported Genitourinary: No symptoms reported Male Genitourinary: No symptoms reported Musculoskeletal: No symptoms reported Skin: No symptoms reported Hematologic/Lymphatic: No symptoms reported Neurological/Psychological: No symptoms reported Physical Exam - Vital signs Vitals: Temp Pulse BP Pulse Ox 99.7 F 102 H 194/103 H 96 08/25/19 19:33 08/25/19 19:33 08/25/19 19:33 08/25/19 19:33 - Notes Notes: GENERAL: Alert, interacts well. HEAD: Normocephalic, atraumatic. EYES: Pupils equal, round, and reactive to light. Extraocular movements intact. ENT: Oral mucosa moist, tongue midline. Oropharynx unremarkable. Airway patent. Minimal congestion, no nasal septal hematoma, TM's intact. NECK: Full range of motion. Supple. Trachea midline. LUNGS: Frequent nonproductive coughing episodes and occasional sneezing, no respiratory distress, clear lungs HEART: Borderline tachycardia, no murmur, normal rhythm ABDOMEN: Soft, non-tender. Non-distended. Bowel sounds present in all 4 quadrants. GENITOURINARY: Deferred EXTREMITIES: Moves all 4 extremities spontaneously. Borderline bilateral lower extremity edema without significant pitting. Normal radial and dorsalis pedis pulses bilaterally. No cyanosis. BACK: no cervical, thoracic, lumbar midline tenderness. No saddle anesthesia, normal distal neurovascular exam. Moves all extremities in full range of motion. NEUROLOGICAL: Alert and oriented x3. Normal speech. Cranial nerves II through XII grossly intact. PSYCH: Slightly restless SKIN: Warm, dry, normal turgor. No rashes or lesions noted. Course - Re-evaluation Re-evalutation: CBC unremarkable, chemistry nonspecific with chronic kidney disease which is approximately patient's baseline. Troponin is elevated at 0.1, however this is comparable to prior and patient has a history of cocaine abuse and was very hypertensive on arrival. He is only reporting chest pain with cough to me. Chest x-ray suggestive of pneumonia, started on antibiotics, blood cultures pe nding. EKG does show some T wave inversions but this is similar to prior as well. Troponin repeated and unfortunately is uptrending. In addition to this despite patient getting his blood pressure medications that he missed from home patient's blood pressure is now trending upwards into the 190 systolic. Also patient has bilateral edema of the lower extremities and BNP is somewhat elevated. I discussed with Dr. Shields. He recommends admission for hypertensive urgency, uptrending troponin, possible pneumonia versus pulmonary edema. I discussed with Dr. Akbar, Dr. Akbar except for IMCU full admission. Patient does state appreciation and agreement with this plan. - Vital Signs Vital signs: Temp Pulse Resp BP Pulse Ox 98.6 F 85 16 163/89 H 98 08/26/19 03:48 08/26/19 03:48 08/26/19 03:48 08/26/19 03:48 08/26/19 03:48 - Laboratory Result Diagrams: 08/25/19 20:24 08/25/19 20:24 Laboratory results interpreted by me: 08/25/19 08/25/19 08/25/19 20:24 20:24 20:24 RDW 15.6 H Swain % (Auto) 14.4 H Chloride 97 L Carbon Dioxide 34 H Creatinine 1.77 H Est GFR ( Amer) 50 L Est GFR (MDRD) Non-Af 41 L Glucose 169 H NT-Pro-B Natriuret Pep 744 H Discharge - Discharge Clinical Impression: Cough, Uncontrolled hypertension, Elevated troponin, Non compliance w medication regimen, Cocaine abuse Condition: Stable Disposition: ADMITTED INPATIENT Admitting Provider: Raffy (Hospitalist) Unit Admitted: [facility]
[2019-08-25] MEDS ORDERED: AMLODIPINE BESYLATE 10 MG TABLET PO ONE (22:01)
[2019-08-25] MEDS ORDERED: HYDRALAZINE HCL 50 MG TABLET PO ONE (22:01)
[2019-08-25] MEDS ORDERED: CEFTRIAXONE 1 GM/D5W RTU 1 GM/50 ML RTUPB IV ONE (22:41)
[2019-08-25] MEDS ORDERED: DOXYCYCLINE HYCLATE 100 MG TABLET PO ONE (22:42)
--- NOTE | 2019-08-25 23:52 | EKG REPORT ---
SEVERITY:- ABNORMAL ECG - SINUS RHYTHM PROBABLE LEFT ATRIAL ABNORMALITY PROBABLE LVH WITH SECONDARY REPOL ABNRM BORDERLINE PROLONGED QT INTERVAL : Confirmed by: Angel Moura MD 25-Aug-2019 23:51:19
[2019-08-26] MEDS ORDERED: DIAZEPAM INJ 10 MG/2 ML DISP.SYRIN ONE (01:43)
[2019-08-26] MEDS ORDERED: DIAZEPAM INJ 10 MG/2 ML DISP.SYRIN IV ONE (01:43)
[2019-08-26] MEDS ORDERED: HYDRALAZINE HCL INJ/PF 20 MG/1 ML SDV ONE (01:43)
[2019-08-26] MEDS ORDERED: CLONIDINE HCL 0.2 MG TABLET ONE (01:44)
[2019-08-26] MEDS ORDERED: HYDRALAZINE HCL INJ/PF 20 MG/1 ML SDV IV ONE (01:46)
[2019-08-26] MEDS ORDERED: CLONIDINE HCL 0.2 MG TABLET PO ONE (01:47)
[2019-08-26] MEDS ORDERED: MAG HYDROX/AL HYDROX/SIMETH SUSP 30 ML UDCUP PO PRN (01:51)
[2019-08-26] MEDS ORDERED: NITROGLYCERIN 2% OINTMENT 1 GM PACKET TP ONE (01:51)
[2019-08-26] MEDS ORDERED: ACETAMINOPHEN 325 MG TABLET PO PRN (01:51)
[2019-08-26 04:33] LABS: URINE AMPHETAMINES SCREEN NEGATIVE; URINE BARBITURATES SCREEN NEGATIVE; URINE BENZODIAZEPINES SCREEN NEGATIVE; URINE MARIJUANA (THC) SCREEN NEGATIVE; URINE METHADONE SCREEN NEGATIVE; URINE PHENCYCLIDINE SCREEN NEGATIVE
[2019-08-26] MEDS ORDERED: INFLUENZA QUAD (6MOS+) 2019-20 VAC 0.5 ML SYR IM ONE (04:33)
[2019-08-26 04:34] LABS: URINE COCAINE SCREEN UNCONFIRMED POSITIVE
[2019-08-26] MEDS: HEPARIN SOD (PORCINE) 5,000 UNIT/ML 1 ML VIAL SUBCUT SCH ×3 (05:11→21:13)
--- NOTE | 2019-08-26 05:55 | PDOC H&P ---
History of Present Illness Admission Date/PCP: 08/26/19 02:10 Patient complains of: Shortness of breath History of Present Illness: ANTHONY AMBRIZ is a 49 year old male with a past medical history of hypertension, morbid obesity, obstructive sleep apnea, stage II chronic kidney disease, regular crack cocaine use, cocaine induced NE and ongoing noncompliance. He presents with 2 days of shortness of breath after admitted use of crack cocaine in the emergency room is found to have hypertensive urgency with a systolic pressure of 222 with pulmonary vascular congestion. He receives hydralazine, clonidine and referred to the hospitalist for admission. Patient denies chest pain. Past Medical History Cardiac Medical History: Reports: Congestive Heart Failure, Hypertension Denies: Myocardial Infarction Pulmonary Medical History: Reports: Bronchitis Endocrine Medical History: Reports: Diabetes Mellitus Type 2 Denies: Diabetes Mellitus Type 1, Hypothyroidism Psychiatric Medical History: Reports: Depression, Substance Abuse, Tobacco De pendency Past Surgical History Past Surgical History: Reports: Herniorrhaphy Social History Information Source: Patient, [facility] Records Smoking Status: Current Every Day Smoker Electronic Cigarette use?: No Last Time Smoked: 08/25/19 Frequency of Alcohol Use: Social Hx Recreational Drug Use: Yes Drugs: Cocaine, Marijuana Hx Prescription Drug Abuse: No - Advance Directive Resuscitation Status: Full Code Family History Family History: DM, Hypertension, Malignancy Parental Family History Reviewed: Yes Children Family History Reviewed: Yes Sibling(s) Family History Reviewed.: Yes Medication/Allergy Home Medications: Amlodipine Besylate [Norvasc 10 mg Tablet] 10 mg PO QHS #30 tablet 07/07/19 Atorvastatin Calcium [Lipitor 40 mg Tablet] 40 mg PO QHS #30 tablet 07/07/19 Clonidine HCl [Catapres 0.2 mg Tablet] 0.2 mg PO Q8 #90 tablet 07/07/19 Doxazosin Mesylate [Cardura 2 mg Tablet] 2 mg PO DAILY #30 tablet 07/07/19 Furosemide [Lasix 40 mg Tablet] 40 mg PO QAM #30 tablet 07/07/19 Glipizide [Glucotrol 5 mg Tablet] 5 mg PO QAM #30 tablet 07/07/19 Hydralazine HCl [Apresoline 50 mg Tablet] 50 mg PO Q8 #90 tablet 07/07/19 Lisinopril 20 mg PO DAILY #30 tablet 07/07/19 Allergies/Adverse Reactions: No Known Drug Allergies Allergy (Verified 08/25/19 19:47) bees Allergy (Severe, Uncoded 08/25/19 19:47) Review of Systems ROS unobtainable: Due to mental status Constitutional: PRESENT: as per HPI. ABSENT: chills, fever(s), headache(s), aaron ght gain, weight loss Eyes: ABSENT: visual disturbances Ears: ABSENT: hearing changes Cardiovascular: PRESENT: as per HPI, dyspnea on exertion, edema, orthropnea, palpitations Respiratory: ABSENT: cough, hemoptysis Gastrointestinal: ABSENT: abdominal pain, constipation, diarrhea, hematemesis, hematochezia, nausea, vomiting Genitourinary: ABSENT: dysuria, hematuria Musculoskeletal: ABSENT: joint swelling Integumentary: ABSENT: rash, wounds Neurological: ABSENT: abnormal gait, abnormal speech, confusion, dizziness, focal weakness, syncope Psychiatric: ABSENT: anxiety, depression, homidical ideation, suicidal ideation Endocrine: ABSENT: cold intolerance, heat intolerance, polydipsia, polyuria Hematologic/Lymphatic: ABSENT: easy bleeding, easy bruising Physical Exam Vital Signs: Temp Pulse Resp BP Pulse Ox 98.6 F 85 16 163/89 H 98 08/26/19 03:48 08/26/19 03:48 08/26/19 03:48 08/26/19 03:48 08/26/19 03:48 Intake & Output 08/24/19 08/25/19 08/26/19 11:59 11:59 11:59 Intake Total 50 Balance 50 Weight 112.1 kg General appearance: PRESENT: cooperative, morbidly obese, severe distress, well- developed, well-nourished Head exam: PRESENT: atraumatic, normocephalic Eye exam: PRESENT: conjunctival injection, EOMI, PERRLA. ABSENT: scleral icterus Ear exam: PRESENT: normal external ear exam Mouth exam: PRESENT: moist, tongue midline Neck exam: ABSENT: carotid bruit, JVD, lymphadenopathy, thyromegaly Respiratory exam: PRESENT: accessory muscle use, crackles, prolonged expiratory phas, symmetrical, tachypnea. ABSENT: rhonchi Cardiovascular exam: PRESENT: gallop, +S1, +S2, systolic murmur, tachycardia Pulses: PRESENT: normal dorsalis pedis pul Vascular exam: PRESENT: normal capillary refill GI/Abdominal exam: PRESENT: normal bowel sounds, soft. ABSENT: distended, guarding, mass, organolmegaly, rebound, tenderness Rectal exam: PRESENT: deferred Extremities exam: PRESENT: full ROM, +1 edema. ABSENT: calf tenderness, clubbing, pedal edema Neurological exam: PRESENT: alert, awake, oriented to person, oriented to place, oriented to time, oriented to situation, CN II-XII grossly intact. ABSENT: motor sensory deficit Psychiatric exam: PRESENT: anxious Skin exam: PRESENT: dry, intact, warm. ABSENT: cyanosis, rash Results Laboratory Results: 08/25/19 20:24 08/25/19 20:24 08/25/19 08/25/19 20:24 20:24 WBC 4.9 RBC 5.37 Hgb 14.7 Hct 44.6 MCV 83 MCH 27.5 MCHC 33.1 RDW 15.6 H Plt Count 234 Seg Neutrophils % 65.5 Sodium 140.5 Potassium 3.6 Chloride 97 L Carbon Dioxide 34 H Anion Gap 10 BUN 19 Creatinine 1.77 H Est GFR ( Amer) 50 L Glucose 169 H Calcium 9.4 Total Bilirubin 0.4 AST 50 Alkaline Phosphatase 64 Total Protein 7.7 Albumin 4.1 08/25/19 08/25/19 20:24 23:16 Troponin I 0.115 0.133 NT-Pro-B Natriuret Pep 744 H Impressions: Chest X-Ray 08/25/19 19:55 IMPRESSION: Patchy right basilar opacity. Consider atelectasis or pneumonia to include aspiration. Stable cardiomegaly. copyright 2010 [employer]- All Rights Reserved Assessment and Plan - Diagnosis (1) Hypertensive emergency Is this a current diagnosis for this admission?: Yes Plan: Secondary to cocaine abuse, clonidine, Valium, hydralazine, nitrates ordered (2) Cocaine abuse Is this a current diagnosis for this admission?: Yes Plan: Supportive measures, clonidine, Valium, avoid beta-prema, education (3) Chronic kidney disease (CKD) Is this a current diagnosis for this admission?: Yes Plan: At baseline, avoid nephrotoxic meds and doses follow-up chemistry (4) Congestive heart failure Qualifiers: Is this a current diagnosis for this admission?: Yes Plan: Secondary to cocaine abuse and diastolic heart failure, optimize volume and pressure. Encourage BiPAP and cocaine cessation (5) ELIU (obstructive sleep apnea) Is this a current diagnosis for this admission?: Yes Plan: Education and BiPAP as tolerated - Time Time Spent with patient: 25-34 minutes - Inpatient Certification Medical Necessity: Need Close Monitoring Due to Risk of Patient Decompensation
[2019-08-26 06:51] LABS: ANION GAP 6 (5-19); BLOOD UREA NITROGEN 17 mg/dL (7-20); CALCIUM 8.7 mg/dL (8.4-10.2); CARBON DIOXIDE 33 mmol/L (22-30); CHLORIDE 98 mmol/L (98-107); GLUCOSE 139 mg/dL (75-110)
[2019-08-26 06:55] LABS: POTASSIUM 2.8 mmol/L (3.6-5.0)
[2019-08-26] MEDS ORDERED: POTASSIUM CHLORIDE 10 MEQ CAPSULE.ER PO ONE (08:16)
[2019-08-26] MEDS: POTASSIUM CHLORIDE 10 MEQ CAPSULE.ER PO SCH (10:00)
[2019-08-26] MEDS: AMLODIPINE BESYLATE 10 MG TABLET PO SCH (11:12)
[2019-08-26] MEDS: ENALAPRIL MALEATE 5 MG TABLET PO SCH ×2 (11:12→21:19)
[2019-08-26] MEDS: FUROSEMIDE INJ/PF 40 MG/4 ML SDV IV SCH (11:13)
[2019-08-26] MEDS: POTASSI CL 20 MEQ/50 ML RIDER 20 MEQ/50 ML RTUPB IV SCH ×3 (11:20→19:01)
[2019-08-26] MEDS ORDERED: HYDRALAZINE HCL INJ/PF 20 MG/1 ML SDV IV PRN (11:20)
[2019-08-26 17:31] LABS: ANION GAP 11 (5-19); BLOOD UREA NITROGEN 18 mg/dL (7-20); CALCIUM 9.3 mg/dL (8.4-10.2); CARBON DIOXIDE 32 mmol/L (22-30); CHLORIDE 97 mmol/L (98-107); GLUCOSE 134 mg/dL (75-110); POTASSIUM 3.5 mmol/L (3.6-5.0)
[2019-08-26] MEDS: GUAIFENESIN 600 MG TABLET.SA PO SCH ×2 (19:03→21:13)
[2019-08-26] MEDS: LEVOFLOXACIN 500 MG TABLET PO SCH (21:13)
[2019-08-27] MEDS ORDERED: HYDRALAZINE HCL 50 MG TABLET PO ONE (01:45)
[2019-08-27] MEDS ORDERED: NITROGLYCERIN 2% OINTMENT 1 GM PACKET TP ONE (03:30)
[2019-08-27] MEDS: CLONIDINE HCL 0.2 MG TABLET PO SCH ×4 (03:38→21:07)
[2019-08-27] MEDS: DIAZEPAM INJ 10 MG/2 ML DISP.SYRIN IV PRN ×2 (03:54→20:45)
[2019-08-27] MEDS: HEPARIN SOD (PORCINE) 5,000 UNIT/ML 1 ML VIAL SUBCUT SCH ×3 (05:24→21:07)
[2019-08-27] MEDS: HYDRALAZINE HCL 50 MG TABLET PO SCH ×3 (05:24→21:07)
[2019-08-27 06:02] LABS: ANION GAP 9 (5-19); BLOOD UREA NITROGEN 18 mg/dL (7-20); CALCIUM 9.1 mg/dL (8.4-10.2); CARBON DIOXIDE 33 mmol/L (22-30); CHLORIDE 101 mmol/L (98-107); GLUCOSE 120 mg/dL (75-110); POTASSIUM 3.7 mmol/L (3.6-5.0)
[2019-08-27] MEDS: AMLODIPINE BESYLATE 10 MG TABLET PO SCH (09:46)
[2019-08-27] MEDS: POTASSIUM CHLORIDE 10 MEQ CAPSULE.ER PO SCH (09:46)
[2019-08-27] MEDS: GUAIFENESIN 600 MG TABLET.SA PO SCH ×2 (09:47→21:07)
[2019-08-27] MEDS: ENALAPRIL MALEATE 5 MG TABLET PO SCH ×2 (09:47→21:06)
[2019-08-27] MEDS: LEVOFLOXACIN 500 MG TABLET PO SCH (09:47)
[2019-08-27] MEDS: FUROSEMIDE INJ/PF 40 MG/4 ML SDV IV SCH (09:47)
--- NOTE | 2019-08-27 11:34 | RADIOLOGY REPORT (SQ) ---
EXAM DESCRIPTION: CHEST 2 VIEWS COMPLETED DATE/TIME: 08/27/2019 9:17 am REASON FOR STUDY: congestion COMPARISON: 08/24/2019 NUMBER OF VIEWS: Two view. TECHNIQUE: Frontal and lateral radiographic views of the chest acquired. LIMITATIONS: None. FINDINGS: LUNGS AND PLEURA: No opacities, masses or pneumothorax. No pleural effusion. MEDIASTINUM AND HILAR STRUCTURES: No masses. No contour abnormalities. HEART AND VASCULAR STRUCTURES: Heart enlarged without failure. Aorta normal for age. BONES: No acute findings. HARDWARE: None in the chest. OTHER: No other significant finding. IMPRESSION: CARDIAC ENLARGEMENT WITHOUT FAILURE. TECHNICAL DOCUMENTATION: JOB ID: [id number] [employer]- All Rights Reserved Reading location - IP/workstation name: [email or web address]
--- NOTE | 2019-08-27 14:10 | PDOC PROGRESS REPORT ---
Subjective Progress Note for:: 08/27/19 Subjective:: This is a 49-year-old male with past medical history of hypertension, morbid obesity, ELIU, noncompliance to medications, CKD 2 and cocaine abuse who was admitted for hypertensive emergency likely related to recent cocaine use and noncompliance to antihypertensives. No acute event overnight. Blood pressures have improved. He had chest pain yesterday but has been chest pain-free this morning. He says his shortness of breath has also significantly improved. Reason For Visit: PULMONARY EDEMA, HTN EMERGENCY, COCAINE, ARF Physical Exam Vital Signs: Temp Pulse Resp BP Pulse Ox 97.7 F 73 16 134/88 H 99 08/27/19 07:44 08/27/19 07:44 08/27/19 07:44 08/27/19 07:44 08/27/19 07:44 Intake & Output 08/26/19 08/27/19 08/28/19 06:59 06:59 06:59 Intake Total 490 2130 480 Output Total 400 1625 500 Balance 90 505 -20 Weight 247 lb 2.211 oz 254 lb 10.142 oz General appearance: PRESENT: no acute distress, well-developed, well-nourished Head exam: PRESENT: atraumatic, normocephalic Eye exam: PRESENT: conjunctiva pink, EOMI, PERRLA. ABSENT: scleral icterus Ear exam: PRESENT: normal external ear exam Mouth exam: PRESENT: moist, tongue midline Neck exam: ABSENT: carotid bruit, JVD, lymphadenopathy, thyromegaly Respiratory exam: PRESENT: rhonchi. ABSENT: rales, wheezes Cardiovascular exam: PRESENT: RRR. ABSENT: diastolic murmur, rubs, systolic murmur Pulses: PRESENT: normal dorsalis pedis pul Vascular exam: PRESENT: normal capillary refill GI/Abdominal exam: PRESENT: normal bowel sounds, soft. ABSENT: distended, guarding, mass, organolmegaly, rebound, tenderness Rectal exam: PRESENT: deferred Neurological exam: PRESENT: alert, awake, oriented to person, oriented to place, oriented to time, oriented to situation, CN II-XII grossly intact. ABSENT: motor sensory deficit Results Laboratory Results: 08/25/19 20:24 08/27/19 05:19 08/26/19 08/27/19 17:00 05:19 Sodium 140.0 143.2 Potassium 3.5 L 3.7 Chloride 97 L 101 Carbon Dioxide 32 H 33 H Anion Gap 11 9 BUN 18 18 Creatinine 1.72 H 1.67 H Est GFR ( Amer) 51 L 53 L Glucose 134 H 120 H Calcium 9.3 9.1 08/25/19 08/25/19 08/27/19 20:24 23:16 09:45 Troponin I 0.115 0.133 0.054 NT-Pro-B Natriuret Pep 744 H Impressions: Chest X-Ray 08/27/19 08:48 IMPRESSION: CARDIAC ENLARGEMENT WITHOUT FAILURE. Assessment and Plan - Diagnosis (1) Hypertensive emergency Is this a current diagnosis for this admission?: Yes Plan: Blood pressures improved. Continue amlodipine, enalapril and clonidine. Patient also has a nitro patch. (2) Cocaine abuse Is this a current diagnosis for this admission?: Yes Plan: Counseled in length. Patient says that he is determined to stop using cocaine and is awaiting a bed at a voluntary substance abuse rehab facility. (3) Elevated troponin Is this a current diagnosis for this admission?: Yes Plan: Deemed to be from demand ischemia related to hypertensive emergency and cocaine use. EKG changes are chronic when compared to his previous EKGs on record. Troponin has significantly trended down. He has been chest pain-free. Recommend outpatient stress testing. - Time Time Spent with patient: 25-34 minutes
--- NOTE | 2019-08-27 17:29 | EKG REPORT ---
SEVERITY:- ABNORMAL ECG - SINUS RHYTHM LEFT ATRIAL ABNORMALITY PROBABLE LVH WITH SECONDARY REPOL ABNRM ANTERIOR ST ELEVATION, PROBABLY DUE TO LVH PROLONGED QT INTERVAL : Confirmed by: Angel Moura MD 27-Aug-2019 17:28:56
[2019-08-28] MEDS: CLONIDINE HCL 0.2 MG TABLET PO SCH ×2 (04:14→10:21)
[2019-08-28] MEDS: HYDRALAZINE HCL 50 MG TABLET PO SCH (05:30)
[2019-08-28] MEDS: HEPARIN SOD (PORCINE) 5,000 UNIT/ML 1 ML VIAL SUBCUT SCH (05:31)
[2019-08-28 08:46] VITALS: BP 142/77
[2019-08-28] MEDS: POTASSIUM CHLORIDE 10 MEQ CAPSULE.ER PO SCH (10:21)
[2019-08-28] MEDS: LEVOFLOXACIN 500 MG TABLET PO SCH (10:21)
[2019-08-28] MEDS: AMLODIPINE BESYLATE 10 MG TABLET PO SCH (10:21)
[2019-08-28] MEDS: GUAIFENESIN 600 MG TABLET.SA PO SCH (10:21)
[2019-08-28] MEDS: FUROSEMIDE INJ/PF 40 MG/4 ML SDV IV SCH (10:22)
[2019-08-28] MEDS: ENALAPRIL MALEATE 5 MG TABLET PO SCH (10:22)
[2019-08-28 11:43] LABS: ANION GAP 11 (5-19); BLOOD UREA NITROGEN 23 mg/dL (7-20); CALCIUM 10.1 mg/dL (8.4-10.2); CARBON DIOXIDE 28 mmol/L (22-30); CHLORIDE 103 mmol/L (98-107); GLUCOSE 100 mg/dL (75-110); POTASSIUM 4.3 mmol/L (3.6-5.0)
--- NOTE | 2019-08-28 15:49 | PDOC DISCHARGE SUMMARY ---
Impression - Admit/DC Date/PCP Admission Date/Primary Care Provider: 08/26/19 02:10 Discharge Date: 08/28/19 - Discharge Diagnosis (1) Hypertensive emergency Is this a current diagnosis for this admission?: Yes (2) Cocaine abuse Is this a current diagnosis for this admission?: Yes (3) Elevated troponin Is this a current diagnosis for this admission?: Yes - Additional Information Resuscitation Status: Full Code Discharge Diet: Cardiac Discharge Activity: Activity As Tolerated, Balance Activity w/Rest, Weigh Daily Referrals: [facility] [Provider Group] - 09/05/19 1:30 pm MIHIR CASILLAS MD [ACTIVE STAFF] - Prescriptions: Hydralazine HCl [Apresoline 50 mg Tablet] 50 mg PO Q8 #90 tablet Hydrochlorothiazide [Hydrodiuril 25 mg Tablet] 25 mg PO DAILY #60 tab Furosemide [Lasix 20 mg Tablet] 20 mg PO QAM #30 tablet Levofloxacin [Levaquin 250 mg Tablet] 250 mg PO DAILY 3 Days #3 tablet Atorvastatin Calcium [Lipitor 40 mg Tablet] 40 mg PO QHS 30 Days #30 tablet Lisinopril [Prinivil 5 mg Tablet] 5 mg PO DAILY #30 tablet Metoprolol Succinate [Toprol Xl 25 mg Tab.sr] 25 mg PO DAILY #30 tab.sr.24h Home Medications: Amlodipine Besylate [Norvasc 10 mg Tablet] 10 mg PO QHS #30 tablet 07/07/19 Doxazosin Mesylate [Cardura 2 mg Tablet] 2 mg PO DAILY #30 tablet 07/07/19 Glipizide [Glucotrol 5 mg Tablet] 5 mg PO QAM #30 tablet 07/07/19 Atorvastatin Calcium [Lipitor 40 mg Tablet] 40 mg PO QHS 30 Days #30 tablet 08/28/19 Furosemide [Lasix 20 mg Tablet] 20 mg PO QAM #30 tablet 08/28/19 Hydralazine HCl [Apresoline 50 mg Tablet] 50 mg PO Q8 #90 tablet 08/28/19 Hydrochlorothiazide [Hydrodiuril 25 mg Tablet] 25 mg PO DAILY #60 tab 08/28/19 Levofloxacin [Levaquin 250 mg Tablet] 250 mg PO DAILY 3 Days #3 tablet 08/28/19 Lisinopril [Prinivil 5 mg Tablet] 5 mg PO DAILY #30 tablet 08/28/19 Metoprolol Succinate [Toprol Xl 25 mg Tab.sr] 25 mg PO DAILY #30 tab.sr.24h 08/28/19 History of Present Illiness History of Present Illness: Admitting hospitalist's H&P: ANTHONY AMBRIZ is a 49 year old male with a past medical history of hypertension, morbid obesity, obstructive sleep apnea, stage II chronic kidney disease, regular crack cocaine use, cocaine induced RI and ongoing noncompliance. He presents with 2 days of shortness of breath after admitted use of crack cocaine in the emergency room is found to have hypertensive urgency with a systolic pressure of 222 with pulmonary vascular congestion. He receives hydralazine, clonidine and referred to the hospitalist for admission. Patient denies chest pain. Hospital Course Hospital Course: This is a 49-year-old male with past medical history of hypertension, severe LVH, morbid obesity, ELIU, noncompliance to medications, CKD 2 and cocaine abuse who was admitted for hypertensive emergency likely related to recent cocaine use and noncompliance to antihypertensives. He was initially given IV Lasix and IV antihypertensives. His antihypertensive regimen was modified. Blood pressure control was optimized. He was counseled in length about his cocaine abuse. Patient says that he is determined to stop using cocaine and is awaiting a bed at a voluntary substance abuse rehab facility. He was also started on Levaquin as his chest x-ray showed possible aspiration pneumonia. He did return to his baseline. He was able to ambulate the hallways on room air without any acute issues. He did have elevated troponin on presentation deemed to be from demand ischemia related to hypertensive emergency and cocaine use in the setting of severe LVH. EKG changes are chronic when compared to his previous EKGs on record. Troponin significantly trended down. He has been chest pain-free. He was given outpatient stress testing referral with Dr. Lu. Physical Exam Vital Signs: Temp Pulse Resp BP Pulse Ox 97.7 F 73 17 142/77 H 95 08/28/19 08:17 08/28/19 08:17 08/28/19 08:17 08/28/19 08:17 08/28/19 08:17 Intake & Output 08/27/19 08/28/19 08/29/19 06:59 06:59 06:59 Intake Total 2130 916 Output Total 1625 500 Balance 505 416 Weight 254 lb 10.142 oz 251 lb 12.286 oz General appearance: PRESENT: no acute distress, well-developed, well-nourished Head exam: PRESENT: atraumatic, normocephalic Eye exam: PRESENT: conjunctiva pink, EOMI, PERRLA. ABSENT: scleral icterus Ear exam: PRESENT: normal external ear exam Mouth exam: PRESENT: moist, tongue midline Neck exam: ABSENT: carotid bruit, JVD, lymphadenopathy, thyromegaly Respiratory exam: PRESENT: clear to auscultation sandra. ABSENT: rales, rhonchi, wheezes Cardiovascular exam: PRESENT: RRR. ABSENT: diastolic murmur, rubs, systolic murmur Pulses: PRESENT: normal dorsalis pedis pul Rectal exam: PRESENT: deferred Extremities exam: PRESENT: full ROM. ABSENT: calf tenderness, clubbing, pedal edema Neurological exam: PRESENT: alert, awake, oriented to person, oriented to place, oriented to time, oriented to situation, CN II-XII grossly intact. ABSENT: motor sensory deficit Results Laboratory Results: WBC 4.9 10^3/uL (4.0-10.5) 08/25/19 20:24 RBC 5.37 10^6/uL (4.35-5.55) 08/25/19 20:24 Hgb 14.7 g/dL (13.5-17.0) 08/25/19 20:24 Hct 44.6 % (37.9-51.0) 08/25/19 20:24 MCV 83 fl (80-97) 08/25/19 20:24 MCH 27.5 pg (27.0-33.4) 08/25/19 20:24 MCHC 33.1 g/dL (32.0-36.0) 08/25/19 20:24 RDW 15.6 % (11.5-14.0) H 08/25/19 20:24 Plt Count 234 10^3/uL (150-450) 08/25/19 20:24 Lymph % (Auto) 17.6 % (13-45) 08/25/19 20:24 Baldwin % (Auto) 14.4 % (3-13) H 08/25/19 20:24 Eos % (Auto) 1.4 % (0-6) 08/25/19 20:24 Baso % (Auto) 1.1 % (0-2) 08/25/19 20:24 Absolute Neuts (auto) 3.2 10^3/uL (1.7-8.2) 08/25/19 20:24 Absolute Lymphs (auto) 0.9 10^3/uL (0.5-4.7) 08/25/19 20:24 Absolute Monos (auto) 0.7 10^3/uL (0.1-1.4) 08/25/19 20:24 Absolute Eos (auto) 0.1 10^3/uL (0.0-0.6) 08/25/19 20:24 Absolute Basos (auto) 0.1 10^3/uL (0.0-0.2) 08/25/19 20:24 Seg Neutrophils % 65.5 % (42-78) 08/25/19 20:24 Sodium 143.2 mmol/L (137-145) 08/27/19 05:19 Potassium 3.7 mmol/L (3.6-5.0) 08/27/19 05:19 Chloride 101 mmol/L (98-107) 08/27/19 05:19 Carbon Dioxide 33 mmol/L (22-30) H 08/27/19 05:19 Anion Gap 9 (5-19) 08/27/19 05:19 BUN 18 mg/dL (7-20) 08/27/19 05:19 Creatinine 1.67 mg/dL (0.52-1.25) H 08/27/19 05:19 Est GFR ( Amer) 53 (>60) L 08/27/19 05:19 Est GFR (MDRD) Non-Af 44 (>60) L 08/27/19 05:19 Glucose 120 mg/dL (75-110) H 08/27/19 05:19 POC Glucose 155 mg/dL (70-110) H 08/26/19 17:07 Hemoglobin A1c % 6.9 % (4.7-6.0) H 08/26/19 06:15 Calcium 9.1 mg/dL (8.4-10.2) 08/27/19 05:19 Magnesium 2.1 mg/dL (1.6-2.3) 08/26/19 06:15 Total Bilirubin 0.4 mg/dL (0.2-1.3) 08/25/19 20:24 Direct Bilirubin 0.1 mg/dL (0.0-0.4) 08/25/19 20:24 Neonat Total Bilirubin Not Reportable 08/25/19 20:24 Neonat Direct Bilirubin Not Reportable 08/25/19 20:24 Neonat Indirect Bili Not Reportable 08/25/19 20:24 AST 50 U/L (17-59) 08/25/19 20:24 ALT 30 U/L (<50) 08/25/19 20:24 Alkaline Phosphatase 64 U/L (38-126) 08/25/19 20:24 Troponin I 0.054 ng/mL 08/27/19 09:45 NT-Pro-B Natriuret Pep 744 pg/mL (<125) H 08/25/19 20:24 Total Protein 7.7 g/dL (6.3-8.2) 08/25/19 20:24 Albumin 4.1 g/dL (3.5-5.0) 08/25/19 20:24 Urine Opiates Screen NEGATIVE 08/26/19 03:45 Urine Methadone Screen NEGATIVE 08/26/19 03:45 Ur Barbiturates Screen NEGATIVE 08/26/19 03:45 Ur Phencyclidine Scrn NEGATIVE 08/26/19 03:45 Ur Amphetamines Screen NEGATIVE 08/26/19 03:45 U Benzodiazepines Scrn NEGATIVE 08/26/19 03:45 Urine Cocaine Screen UNCONFIRMED POSITIVE 08/26/19 03:45 U Marijuana (THC) Screen NEGATIVE 08/26/19 03:45 08/25/19 08/25/19 08/27/19 20:24 23:16 09:45 Troponin I 0.115 0.133 0.054 NT-Pro-B Natriuret Pep 744 H Impressions: Chest X-Ray 08/25/19 19:55 IMPRESSION: Patchy right basilar opacity. Consider atelectasis or pneumonia to include aspiration. Stable cardiomegaly. copyright 2011 [employer]- All Rights Reserved Chest X-Ray 08/27/19 08:48 IMPRESSION: CARDIAC ENLARGEMENT WITHOUT FAILURE. Stroke Is this a Stroke Patient?: No Acute Heart Failure - Is this a Heart Failure Patient?: No
== END 2019-08-28 13:39 | disposition home or self-care (01) | DRG 304 ==
LOC: ER 19:10 → EH 08-26 02:10 → 3S 08-26 03:33
PROVIDERS: ADMIT Internal Medicine; ATTEND Internal Medicine
DX: I16.1 Hypertensive emergency (principal); J69.0 Pneumonitis due to inhalation of food and vomit; I50.30 Unspecified diastolic (congestive) heart failure; I13.0 Hypertensive heart and chronic kidney disease with heart failure and stage 1 through stage 4 chronic kidney disease, or unspecified chronic kidney disease; E11.22 Type 2 diabetes mellitus with diabetic chronic kidney disease; F14.10 Cocaine abuse, uncomplicated; E66.01 Morbid (severe) obesity due to excess calories; G47.33 Obstructive sleep apnea (adult) (pediatric); N18.2 Chronic kidney disease, stage 2 (mild); R79.89 Other specified abnormal findings of blood chemistry; F32.9 Major depressive disorder, single episode, unspecified; F17.210 Nicotine dependence, cigarettes, uncomplicated; Z82.49 Family history of ischemic heart disease and other diseases of the circulatory system; Z83.3 Family history of diabetes mellitus; Z79.899 Other long term (current) drug therapy; Z91.14 Patient's other noncompliance with medication regimen
CPT/HCPCS: 36415; 71046; 80048; 80053; 80307; 82962; 83036; 83735; 83880; 84484; 85025; 87040; 87070; 87205; 93005; 93010; 94640; 96365; 96375; 99285; J0360; J0696; J1644; J1940; J3360; J3480; J3490; J7620

== ENCOUNTER 2019-11-24 12:50 | Emergency (ER) | payer SELFPAY ==
[2019-11-24] MEDS ORDERED: ASPIRIN 300 MG SUPP, RECTAL PR ONE (13:04)
[2019-11-24] MEDS ORDERED: PROPOFOL 1,000 MG/100 ML INFUS..BTL IV PRN (13:05)
--- NOTE | 2019-11-24 13:10 | ER Document Report ---
Entered by HELADIO BLUE SCRIBE 11/24/19 1844 Acting as scribe for:CATA ACE DO ED Resuscitation - General Chief Complaint: Altered Mental Status Stated Complaint: AMS Mode of Arrival: Medic Information source: Emergency Med Personnel, [facility] Records Cannot obtain history due to: Intubated Notes: This 49 year old male patient presents to the emergency department today for cardiac arrest. According to EMS, a [employer] technician was at the patient's residence and witnessed him "collapse stop breathing". [employer] worker administered approximately 1 minute of chest compressions prior to stopping due to agonal respirations. EMS reports that Law Enforcement was first on scene and they also administered approximately 1 minute of chest compressions, fire arrived and chocked the patient with positive ROSC. Patient had LMA airway placed in the field. History is extremely difficult to obtain. 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 TRAVEL OUTSIDE OF THE [place] IN LAST 30 DAYS: No - Related Data Allergies/Adverse Reactions: No Known Drug Allergies Allergy (Verified 11/24/19 12:52) bees Allergy (Severe, Uncoded 11/24/19 12:52) Past Medical History - General Information source: [facility] Records Cannot obtain history due to: Intubated - Social History Smoking Status: Current Every Day Smoker Frequency of alcohol use: Social Drug Abuse: Cocaine Family History: Reviewed & Not Pertinent, DM, Hypertension, Malignancy - Past Medical History Cardiac Medical History: Reports: Hx Congestive Heart Failure, Hx Hypertension Denies: Hx Heart Attack Pulmonary Medical History: Reports: Hx Bronchitis Endocrine Medical History: Reports: Hx Diabetes Mellitus Type 2. Denies: Hx Diabetes Mellitus Type 1, Hx Hypothyroidism Renal/ Medical History: Denies: Hx Peritoneal Dialysis Psychiatric Medical History: Reports: Hx Depression Past Surgical History: Reports: Hx Abdominal Surgery - hernia repair, Hx Herniorrhaphy - Immunizations Hx Diphtheria, Pertussis, Tetanus Vaccination: Yes Review of Systems - Review of Systems -: Yes ROS unobtainable due to patient's medical condition Physical Exam - Vital signs Vitals: Resp Pulse Ox 15 100 11/24/19 12:50 11/24/19 12:50 - General General appearance: Unresponsive In distress: Severe - HEENT Head: Normocephalic, Atraumatic Eyes: Normal - Respiratory Respiratory status: Other - Intubated. Equal breath sounds bilaterally. - Cardiovascular Rhythm: Regular Heart sounds: Normal auscultation Murmur: No - Abdominal Inspection: Obese Distension: No distension Bowel sounds: Normal - Extremities General upper extremity: Normal inspection. No: Edema General lower extremity: Other - IO in left tibia - Neurological Cognition: Other - intubated Orientation: Disoriented to person, Disoriented to place, Disoriented to time, Disoriented to events - Psychological Associated symptoms: Other - unable to assess - Skin Skin Temperature: Warm Skin Moisture: Dry Skin Color: Normal Course - Re-evaluation Re-evalutation: 11/24/19 14:17 MDM 49 year old s/p arrest a short time ago. Collapsed at home in front of [employer] man. CPR at home and EMS responded. While the EKG post resussitation showed some St elevation I have repeated the ekg here and there is no longer st elevation. Due to this no lytics have been given. We have, however continued the nitro and intubated this gentleman and initiated heparin infusion. 11/24/19 14:34 I have discussed with Dr. Weldon at [facility] and the [employer] (Dr. Bueno) He has graciously accepted the pt who I just saw again and he is stable for transfer at this time. - Vital Signs Vital signs: Temp Pulse Resp BP Pulse Ox 98.5 F 21 H 128/80 H 99 11/24/19 14:30 11/24/19 14:30 11/24/19 14:30 11/24/19 14:30 - Laboratory Result Diagrams: 11/24/19 13:00 11/24/19 13:00 Laboratory results interpreted by me: 11/24/19 11/24/19 11/24/19 12:58 13:00 13:00 RDW 15.3 H Potassium 2.8 L* Creatinine 2.14 H Est GFR ( Amer) 40 L Est GFR (MDRD) Non-Af 33 L Glucose 209 H POC Glucose 185 H AST 64 H ALT 68 H Urine Protein Urine Glucose (UA) Urine Blood Acetaminophen 11/24/19 11/24/19 13:00 13:05 RDW Potassium Creatinine Est GFR ( Amer) Est GFR (MDRD) Non-Af Glucose POC Glucose AST ALT Urine Protein >=500 H Urine Glucose (UA) >=500 H Urine Blood MODERATE H Acetaminophen < 10 L - Diagnostic Test Radiology reviewed: Image reviewed - EKG Interpretation by Me EKG shows normal: Sinus rhythm Procedures - Intubation Orotracheal Time of Intubation: 12:45 Airway evaluation: Normal anatomy Mallampati Classification: Class 1 Medications: Etomidate Intubation method: Orotracheal Blade type: Other - glidescope Blade size: 3 Equipment used: Glidescope ETT size: 7.5 ETT secured at: Teeth End tidal CO2 confirmed: Yes Ventilator settings: CPAP Post Intubation Xray: Yes Intubation Complications: No complications Critical Care Note - Critical Care Note Total time excluding time spent on procedures (mins): 60 Discharge - Discharge Clinical Impression: Hypertensive emergency, Signs of return of spontaneous circulation STEMI (ST elevation myocardial infarction) Qualifiers: Involved coronary artery: unspecified coronary artery Qualified Code(s): I21.3 - ST elevation (STEMI) myocardial infarction of unspecified site Condition: Critical Disposition: [facility] I personally performed the services described in the documentation, reviewed and edited the documentation which was dictated to the scribe in my presence, and it accurately records my words and actions.
[2019-11-24] MEDS ORDERED: LORAZEPAM INJ 2 MG/1 ML VIAL IV ONE (13:36)
--- NOTE | 2019-11-24 13:56 | RADIOLOGY REPORT (SQ) ---
EXAM DESCRIPTION: CHEST SINGLE VIEW COMPLETED DATE/TIME: 11/24/2019 1:43 pm REASON FOR STUDY: hthn COMPARISON: None. NUMBER OF VIEWS: One view. TECHNIQUE: Single frontal radiographic image of the chest acquired. LIMITATIONS: Overlying support apparatus. FINDINGS: LUNGS AND PLEURA: Bilateral airspace disease. No pneumothorax. MEDIASTINUM AND HEART: Stable heart size and mediastinal structures. SUPPORT DEVICES: Appropriate position of endotracheal tube, nasogastric tube. BONY STRUCTURES: No acute findings. HARDWARE: None. OTHER: No other significant finding. IMPRESSION: Bilateral pneumonia or edema status post intubation. No pneumothorax. Reading location - IP/workstation name: [email or web address]
[2019-11-24] MEDS ORDERED: HEPARIN SOD (PORCINE) 1,000 UNIT/ML 10 ML VIAL IV PRN (14:30)
[2019-11-24] MEDS ORDERED: HEPARIN SODIUM,PORCINE/D5W 25,000 UNIT/250 ML RTUINJ IV PRN (14:30)
[2019-11-24 14:47] VITALS: BP 128/80
[2019-11-24] MEDS ORDERED: ETOMIDATE INJ/PF 20 MG/10 ML SDV IV ONE ×2 (15:00→15:05)
[2019-11-24 15:06] LABS: ABSOLUTE BASOPHILS # (AUTO) 0.1 10^3/uL (0.0-0.2); ABSOLUTE EOSINOPHILS # (AUTO) 0.1 10^3/uL (0.0-0.6); ABSOLUTE LYMPHOCYTES (AUTO) 1.6 10^3/uL (0.5-4.7); ABSOLUTE MONOCYTES (AUTO) 0.6 10^3/uL (0.1-1.4); ABSOLUTE NEUT (AUTO) 6.1 10^3/uL (1.7-8.2); HEMATOCRIT 44.1 % (37.9-51.0); HEMOGLOBIN 14.4 g/dL (13.5-17.0); MEAN CORPUSCULAR HGB CONC 32.6 g/dL (32.0-36.0); TOTAL CELLS COUNTED % (AUTO) 100 %
[2019-11-24] MEDS ORDERED: PROPOFOL INJ 200 MG/20 ML VIAL IV ONE (15:06)
[2019-11-24] MEDS ORDERED: NITROGLYCERIN/D5W 50 MG/250 ML RTUINJ IV PRN (15:06)
[2019-11-24 15:14] LABS: INTERNATIONAL RATION (INR) 1.18; PROTHROMBIN TIME 15.1 SEC (11.4-15.4)
[2019-11-24 15:21] LABS: BASOPHILS % (AUTO) 0.7 % (0-2); EOSINOPHILS % (AUTO) 1.2 % (0-6); LYMPHOCYTES % (AUTO) 19.1 % (13-45); MEAN CORPUSCULAR VOLUME 86 fl (80-97); MONOCYTES % (AUTO) 6.6 % (3-13); PLATELET COUNT 325 10^3/uL (150-450); RED BLOOD COUNT 5.13 10^6/uL (4.35-5.55); RED CELL DISTRIBUTION WIDTH 15.3 % (11.5-14.0); SEGMENTED NEUTROPHILS % (AUTO) 72.4 % (42-78); WHITE BLOOD COUNT 8.4 10^3/uL (4.0-10.5)
[2019-11-24 15:29] LABS: ALBUMIN 3.8 g/dL (3.5-5.0); ALKALINE PHOSPHATASE 88 U/L (38-126); ANION GAP 11 (5-19); ASPARTATE AMINO TRANSFERASE 64 U/L (17-59); BILIRUBIN,DIRECT 0.2 mg/dL (0.0-0.4); BILIRUBIN,TOTAL 0.9 mg/dL (0.2-1.3); BLOOD UREA NITROGEN 20 mg/dL (7-20); CALCIUM 8.7 mg/dL (8.4-10.2); CARBON DIOXIDE 29 mmol/L (22-30); CHLORIDE 100 mmol/L (98-107); GLUCOSE 209 mg/dL (75-110)
[2019-11-24 15:47] LABS: POTASSIUM 2.8 mmol/L (3.6-5.0)
[2019-11-24 15:50] LABS: APPEARANCE,URINE CLOUDY; BILIRUBIN,URINE NEGATIVE (NEGATIVE); COLOR,URINE YELLOW; GLUCOSE, URINE >=500 mg/dL (NEGATIVE); KETONES,URINE NEGATIVE (NEGATIVE); LEUKOCYTE ESTERASE,URINE NEGATIVE (NEGATIVE); NITRITE,URINE NEGATIVE (NEGATIVE); PROTEIN,URINE >=500 mg/dL (NEGATIVE); URINE SPECIFIC GRAVITY 1.021; UROBILINOGEN,URINE NEGATIVE mg/dL (<2.0)
[2019-11-24 17:06] LABS: URINE AMPHETAMINES SCREEN NEGATIVE; URINE BARBITURATES SCREEN NEGATIVE; URINE BENZODIAZEPINES SCREEN NEGATIVE; URINE MARIJUANA (THC) SCREEN NEGATIVE; URINE METHADONE SCREEN NEGATIVE; URINE PHENCYCLIDINE SCREEN NEGATIVE
[2019-11-24 17:08] LABS: URINE COCAINE SCREEN UNCONFIRMED POSITIVE
== END 2019-11-24 14:45 | disposition short-term general hospital (02) ==
LOC: ER 12:50
DX: I21.3 ST elevation (STEMI) myocardial infarction of unspecified site (principal); I16.0 Hypertensive urgency; R41.82 Altered mental status, unspecified; F17.200 Nicotine dependence, unspecified, uncomplicated; I50.9 Heart failure, unspecified; I11.0 Hypertensive heart disease with heart failure; E66.9 Obesity, unspecified
CPT/HCPCS: 36415; 82962; 83735; 80307 ×2; 85025; 85610; 80053; 81001; 84484; 71045; 94002; J1644 ×2; J3490 ×2; J2704 ×2; J2060